=== PATIENT | male | born 1960 | race Caucasian/White ===

== ENCOUNTER 2019-07-28 08:49 | Day surgery (SDC) | payer OTHER, SELFPAY ==
[2019-07-28] MEDS: SODIUM CHLORIDE 0.9% 1,000 ML 200 ML IV (09:20)
[2019-07-28 09:23] VITALS: BP 124/83; PULSE 56; RESP 15; TEMP 36.9; O2SAT 99; BMI 25.1
--- NOTE | 2019-07-28 09:45 | PM.HP.1 ---
History of Present Illness History of Present Illness Date Patient Seen: 07/28/19 Time Patient Seen: 09:45 Chief complaint: [id number] SCREENING COLONOSCOPY Narrative: The patient is a gentleman who is here for screening colonoscopy. He believes he had a polyp removed at his last scope about 5 or 6 years ago. This was done in [place]. He had an uncle who at advanced age of colon cancer. No in his immediate family has colon cancer. Patient History Medical History Enlarged prostate (Acute) Urinary frequency (Acute) Social History household members: spouse Family & Social History Social History: household members spouse Meds Home Medications and Allergies Home Medications Medication Instructions Recorded Confirmed Type Vitamin D3 1 tab PO DAILY 07/28/19 07/28/19 History magnesium 1 tab PO DAILY 07/28/19 07/28/19 History tamsulosin 0.8 mg PO BEDTIME 07/28/19 07/28/19 History Allergies Allergy/AdvReac Type Severity Reaction Status Date / Time No Known Drug Allergies Allergy Verified 07/28/19 08:30 Review of Systems Review of Systems ROS Unobtainable: All systems reviewed & are unremarkable except as noted in HPI and below Genitourinary Comments: Enlarged prostate with urinary symptoms on medication Exam Vital Signs (past 8 hours): - 07/28/19 09:23 Temperature 98.4 F Pulse Rate 56 L Respiratory Rate 15 Blood Pressure 124/83 Pulse Oximetry 99 Oxygen Delivery Method Room Air Narrative Exam Narrative: Pleasant cooperative patient no apparent distress. Lungs are clear to auscultation. No rales or rhonchi. Heart regular rate and rhythm no murmur gallop. Abdomen is soft nontender without mass. No obvious hernias. Patient is alert and oriented x3. Assessment & Plan Assessment & Plan narrative: The patient for a screening colonoscopy. I have discussed the procedure with them. Risks of bleeding, perforation which would necessitate major operation, failure to find remove all lesions, the potential tattoo were all discussed. All questions were answered. They wished to proceed.
--- NOTE | 2019-07-28 09:48 | PM.PREOP ---
Pre-operative Note Interval Note History & Physical reviewed/Exam performed by Physician: Yes Changes to H&P: No ASA Class (for procedural sedation): I
[2019-07-28] MEDS: fentaNYL 250 MCG/5 ML INJ IV (10:14)
[2019-07-28] MEDS: MIDAZOLAM 5 MG/5 ML VIAL IV (10:15)
[2019-07-28 10:18] VITALS: BP 98/67; PULSE 55; RESP 21; TEMP 36.7; O2SAT 94
[2019-07-28 10:23] VITALS: BP 100/69; PULSE 53; RESP 9; O2SAT 94
[2019-07-28 10:28] VITALS: BP 96/70; PULSE 59; RESP 12; TEMP 36.8; O2SAT 94
--- NOTE | 2019-07-28 10:32 | PM.OP.ENDO ---
Operative Date/Time/Diagnoses Date of procedure: 07/28/19 Time of procedure: 10:32 Pre-op diagnosis: Screening exam. Personal history of polyps. Last exam 5 or 6 years ago. Post-op diagnosis: same (Occasional sigmoid diverticulosis. Enlarged prostate.) Procedure & Clinicians Study performed: Colonoscopy Same procedure as scheduled: Yes Indications: Screening Surgeon: Placido Valentine Procedure Notes SCOAP/Timeout: Performed Procedure in detail: The patient was placed in the left lateral decubitus position and underwent IV sedation directed by the surgeon consisting of fentanyl and Versed. Digital exam was remarkable for rarely large prostate. No dominant mass felt.. The scope was inserted and advanced through the rectum into the sigmoid, descending, transverse, and ascending colon. Pressure was applied in order to make our way into the cecum. The cecum was reached identified by the ileocecal valve and the appendiceal opening. The ileocecal valve was briefly cannulated. The terminal ileum was normal in appearance. The scope was gradually brought out. No Polyps were found. The scope ultimately was retroflexed in the rectum. The appearance was normal. The scope was removed and the patient tolerated the procedure well. The prep was good. Scope withdrawal time: 7.5 minutes Sedation minutes: 23 Findings: diverticulosis (Sigmoid) and other findings (Very large prostate) Specimen(s): none sent Complications: none Post-procedure Recommendations: Colonscopy in 5 years Follow up: as needed Disposition: PACU
[2019-07-28 10:33] VITALS: BP 94/73; PULSE 60; RESP 15; TEMP 36.6; O2SAT 95
[2019-07-28 10:50] VITALS: BP 109/73; PULSE 51; RESP 16; TEMP 36.3; O2SAT 97
== END 2019-07-28 10:55 | disposition home or self-care (01) ==
PROVIDERS: Family Provider Family Medicine; PCP Family Medicine; Visit Provider Specialist
PROC: 0DJD8ZZ Inspection of Lower Intestinal Tract, Via Natural or Artificial Opening Endoscopic (ICD-10-PCS; CPT 45378; principal; 2019-07-28 09:45)
DX: Z86.010 Personal history of colon polyps (principal); K57.30 Diverticulosis of large intestine without perforation or abscess without bleeding; N40.0 Benign prostatic hyperplasia without lower urinary tract symptoms
CPT/HCPCS: 45378; 99152; J2250; J3010

== ENCOUNTER → 2020-08-03 10:59 | Outpatient (CLI) | payer OTHER, SELFPAY ==
[2020-08-04 23:28] LABS: COVID19 Sendout Not Detected (Not Detect)
== END ==
PROVIDERS: Family Provider Family Medicine; PCP Family Medicine; Visit Provider Physician Assistant
DX: Z01.812 Encounter for preprocedural laboratory examination (principal)
CPT/HCPCS: 87635

== ENCOUNTER 2020-08-06 10:17 | Day surgery (SDC) | payer OTHER, SELFPAY ==
[2020-08-01 12:14] VITALS: BMI 24.6
[2020-08-06] VITALS (8 sets, daily range): BP systolic 111–137; BP diastolic 63–83; PULSE 43–56; RESP 10–39; TEMP 36.1–36.4; O2SAT 98–100; BMI 24.6
[2020-08-06] MEDS: LACTATED RINGERS 1,000 ML 42 ML IV (10:50)
--- NOTE | 2020-08-06 11:20 | PM.PREOP ---
Pre-operative Note COVID-19 COVID-19 status: Negative Result date/Date tested (Pos, Neg/Pending): 08/03/20 Interval Note History & Physical reviewed/Exam performed by Physician: Yes Changes to H&P: No
[2020-08-06] MEDS: CEFAZOLIN 2 GM/100 ML FROZ.PIGGY IV (11:50)
--- NOTE | 2020-08-06 11:59 | SUR.OPER ---
Supine on padded OR bed, head on pillow, arms secured on padded arm boards at <90 degrees abduction, legs uncrossed, safety belt at thigh, tape over blanket over lower legs.
[2020-08-06] MEDS: BUPIVACAINE 0.5% (PF) VIAL 30 ML INJ (12:07)
--- NOTE | 2020-08-06 13:17 | P.OP_ITS ---
Operative Date/Time/Diagnoses Date of procedure: 08/06/20 Time of procedure: 13:17 Pre-op diagnosis: Right inguinal hernia reducible Post-op diagnosis: same Procedure & Clinicians Procedure: repair right inguinal hernia with Shouldice technique Same procedure as scheduled: Yes Indications: symptomatic right inguinal hernia Click Yes if Unassisted: Yes Anesthesia Type: General Operative Notes Findings: small indirect sac with a weakened floor Closure Type: primary Specimen(s): none sent Prosthetic devices, grafts, tissues, transplants, or devices: none Estimated Blood Loss (mL): 10 Blood products transfused: none Procedure in detail: the patient is placed supine on the operating table and underwent general LMA anesthesia. He was prepped and draped in the usual fashion. A small incision was made overlying the right internal ring and carried down level the external oblique. The external oblique was opened parallel with its fibers through the external ring. Cord structures were elevated. The cremaster was opened proximally and a inguinal hernia sac indirect was found. It was from surrounding structures and dissected the level the deep epigastric vessels. It was opened and found to have no co ntents in suture ligated with a 2 0 silk suture. Distal portion was transected and the stump allowed to retract. The cremaster was closed with an interrupted 3 0 Vicryl. Attention was turned to the floor which is weakened. I opened the floor from near the internal ring to near the pubic tubercle. Preperitoneal fat was dissected off the underside and beginning at the pubic tubercle 20 Prolene suture was sutured at the pubic tubercle. It was then run suturing the cut side of the lateral tissues to the underside transversalis fascia running to create a new internal ring. Using the same suture was run back suturing the edge of inguinal ligament and portion of ileopubic tract to the cut edge of the floor. It was tied at the pubic tubercle. A 2nd 2 layer running layer was created by beginning at the internal ring and suturing oval higher up on the inguinal ligament to the internal oblique running to the pubic tubercle and back. I was careful not to constrict the internal ring tightly in order to avoid swelling of the testicle and cord. The external oblique was closed a running 3 0 Vicryl. The subcu was closed with interrupted 4 0 Vicryl and the skin was closed running 4 0 Vicryl subcuticular stitch and Steri-Strips. Dressing was applied. Local anesthetic was infiltrated at the beginning the end of the procedure. Patient tolerated the procedure well. Complications: none Post-operative Condition: stable Disposition: PACU
[2020-08-06] MEDS: fentaNYL 100 MCG/2 ML INJ IV ×2 (13:20→13:25)
[2020-08-06] MEDS: OXYCODONE/ACETAMINOPHEN 5/325 TABLET 1 TAB PO (13:32)
--- NOTE | 2020-08-06 13:57 | SUR.PHASEI ---
pain stable, awake, talking, resp even and regular.
== END 2020-08-06 14:23 | disposition home or self-care (01) ==
PROVIDERS: Family Provider Family Medicine; PCP Family Medicine; Referring Provider Specialist; Visit Provider Specialist
PROC: (CPT 49505; principal; 2020-08-06 11:15)
DX: K40.90 Unilateral inguinal hernia, without obstruction or gangrene, not specified as recurrent (principal); N40.0 Benign prostatic hyperplasia without lower urinary tract symptoms; R35.0 Frequency of micturition
CPT/HCPCS: 49505; J0690; J1100; J1885; J2250; J2405; J2704; J3010

== ENCOUNTER → 2020-12-06 09:07 | Outpatient (CLI) | payer OTHER, SELFPAY ==
[2020-12-06 11:19] LABS: Prostate Specific Antigen 3.23 ng/mL (0.10-4.00)
== END ==
PROVIDERS: Family Provider Family Medicine; PCP Family Medicine; Referring Provider Specialist; Visit Provider Specialist
DX: R97.20 Elevated prostate specific antigen [PSA] (principal); N39.0 Urinary tract infection, site not specified; N40.1 Benign prostatic hyperplasia with lower urinary tract symptoms; N13.8 Other obstructive and reflux uropathy; Z80.42 Family history of malignant neoplasm of prostate; N52.9 Male erectile dysfunction, unspecified
CPT/HCPCS: 36415; 52000; 81002; 84153

== ENCOUNTER → 2021-01-17 16:17 | Outpatient (CLI) | payer OTHER, SELFPAY ==
[2021-01-17] MEDS: COVID-19 VACC #1, MRNA(MOD) 100 MCG/0.5 ML VIAL IM (16:24)
== END ==
PROVIDERS: Family Provider Family Medicine; PCP Family Medicine; Visit Provider Internal Medicine
DX: Z23 Encounter for immunization (principal)
CPT/HCPCS: 0011A; 91301

== ENCOUNTER → 2021-02-14 15:41 | Outpatient (CLI) | payer OTHER, SELFPAY ==
[2021-02-14] MEDS: COVID-19 VACC #2, MRNA(MOD) 100 MCG/0.5 ML VIAL IM (15:47)
== END ==
PROVIDERS: Family Provider Family Medicine; PCP Family Medicine; Visit Provider Internal Medicine
DX: Z23 Encounter for immunization (principal)
CPT/HCPCS: 0012A; 91301

== ENCOUNTER → 2021-12-28 12:09 | Outpatient (CLI) | payer OTHER, SELFPAY ==
--- NOTE | 2021-12-28 12:11 | DI.MRI.S_ITS ---
PROCEDURE: MR KNEE LT WO CON INDICATIONS: Other instability, left knee TECHNIQUE: Noncontrast sagittal PD fast spin echo and T2 fast spin echo with fat saturation, sagittal 3-D FLASH with fat saturation; coronal T1 spin echo and PD fast spin echo with fat saturation, and axial PD fast spin echo with fat saturation through the knee. COMPARISON: None. FINDINGS: Image quality: Excellent. Menisci: The lateral meniscus is intact. Minimal surfacing signal in the posterior horn, medial meniscus, compatible with small tear. Cruciate ligaments: The posterior cruciate ligament is intact. The ACL demonstrates T2 intrasubstance signal, compatible with partial tear. Medial structures: The medial collateral ligament appears intact. T2 hyperintense signal about the medial retinaculum with partial tear. Visualized portions of the pes anserinus tendons appear normal. No abnormal bursal fluid. Lateral structures: The lateral collateral ligament complex appears intact. The popliteus tendon appears normal. Iliotibial band appears normal. Anterior structures: The quadriceps and patellar tendons appear intact. Patellar alignment is normal. No femoral trochlear dysplasia or ventral trochlear prominence. No edema in the infrapatellar fat pad. Bones and cartilage: Minimal displaced fracture of the lateral tibial plateau with minimal height loss. Fissuring of the patellar apex hyaline cartilage with underlying subchondral edema. The medial and lateral compartment hyaline cartilage is intact. Joint space: Moderate knee joint fluid. No Lerner's cyst. Normal appearing synovial plicae are incidentally noted. IMPRESSION: 1. Minimal displaced fracture of the lateral tibial plateau with minimal height loss. 2. Fissuring of the patellar apex with underlying subchondral edema. 3. Minimal surfacing signal in the posterior horn, medial meniscus, compatible with small tear. 4. Partial tear of the ACL. 5. Partial tear of the medial retinaculum. 6. Moderate joint effusion. Dictated by: Soto Echols M.D. on 12/30/2021 at 8:19 Approved by: Soto Echols M.D. on 12/30/2021 at 8:38
== END ==
PROVIDERS: Family Provider Family Medicine; Referring Provider Family Medicine; Visit Provider Family Medicine
DX: S83.512A Sprain of anterior cruciate ligament of left knee, initial encounter (principal); S83.8X2A Sprain of other specified parts of left knee, initial encounter; M25.362 Other instability, left knee; M25.462 Effusion, left knee
CPT/HCPCS: 73721

== ENCOUNTER → 2023-06-29 19:03 | Outpatient (CLI) | payer MEDICARE, OTHER, SELFPAY ==
--- NOTE | 2023-06-29 19:05 | DI.MRI.S_ITS ---
PROCEDURE: MR KNEE LT WO CON INDICATIONS: Pain in left knee TECHNIQUE: Noncontrast sagittal PD fast spin echo and T2 fast spin echo with fat saturation, sagittal 3-D FLASH with fat saturation; coronal T1 spin echo and PD fast spin echo with fat saturation, and axial PD fast spin echo with fat saturation through the knee. COMPARISON: [facility], MR, MR KNEE LT WO CON, 12/28/2021, 12:44. [facility], CR, XR KNEE ARTHRITIC SERIES LT, 06/23/2023, 15:02. FINDINGS: Image quality: Excellent. Anterior Cruciate Ligament: Anterior cruciate ligament appears mildly attenuated with increased signal intensity, consistent with chronic partial tearing. The bulk of the ligament fibers remain in continuity. Posterior Cruciate Ligament: Intact. Medial Collateral Ligament: Intact. Lateral Collateral Ligament: Intact. Medial Meniscus: Diffuse vertical longitudinal tearing of the medial meniscus with a displaced bucket-handle flap located in the intercondylar notch. The mildly root diminutive residual rim of meniscal tissue demonstrates superimposed horizontal oblique tearing at the posterior horn and body extending to the middle third of the tibial articular surface. Lateral Meniscus: Intact. Medial and Lateral Tendons: The semimembranosus tendon insertions and meniscocapsular junction appear intact. Visualized portions of the pes anserinus tendons appear normal. No abnormal bursal fluid. The long and short heads of the biceps femoris tendon appear intact. The popliteus tendon appears intact. No signs of posterolateral corner injury. Iliotibial band appears normal. Anterior Structures: The quadriceps and patellar tendons appear intact. No patellar subluxation. No femoral trochlear dysplasia or ventral trochlear prominence. No edema in the infrapatellar fat pad. Bones: Healed fracture of the lateral tibial plateau is seen with mild residual deformity at the lateral tibial plateau articular surface and no residual osseous edema. Medial Femorotibial Cartilage: Mild partial-thickness cartilage thinning and surface irregularity. Lateral Femorotibial Cartilage: Deep cartilage fissuring is seen in the weight-bearing portion of the lateral tibial plateau overlying the healed fracture site. Patellofemoral Cartilage: Full-thickness cartilage fissuring at the median ridge of the patella with subchondral cystic changes, not significantly changed when compared to the prior exam. Soft Tissues: A small amount of joint fluid is present. Trace medial popliteal cyst. The musculature surrounding the knee is normal in bulk. Mild edema within the popliteus muscle may indicate a low-grade strain. IMPRESSION: 1. Large bucket-handle tear of the medial meniscus with a displaced flap in the intercondylar notch. There is superimposed horizontal oblique tearing of the residual meniscal rim at the posterior horn and body. 2. Chronic partial tearing of the anterior cruciate ligament appears unchanged. 3. Previously seen fracture of the lateral tibial plateau appears healed without residual edema. There is mild irregularity of the lateral tibial plateau articular surface and overlying cartilage fissuring. 4. Full-thickness cartilage fissuring at the median ridge of the patella with subchondral cystic changes, similar when compared to the prior MRI. 5. Mild edema within the popliteus muscle may be related to low-grade strain. 6. Small joint effusion. Approved by: Ernesto Bee M.D. on 06/30/2023 at 9:36
== END ==
PROVIDERS: Family Provider Family Medicine; Referring Provider Orthopaedic Surgery; Visit Provider Orthopaedic Surgery
DX: S83.212A Bucket-handle tear of medial meniscus, current injury, left knee, initial encounter (principal); S83.512A Sprain of anterior cruciate ligament of left knee, initial encounter; M25.462 Effusion, left knee; M25.562 Pain in left knee; Z87.81 Personal history of (healed) traumatic fracture
CPT/HCPCS: 73721

== ENCOUNTER 2023-08-31 04:51 | Emergency (ER) | payer MEDICARE, OTHER, SELFPAY ==
[2023-08-31 05:01] VITALS: BP 167/77; PULSE 61; RESP 16; TEMP 36.8; O2SAT 97; BMI 25.7
--- NOTE | 2023-08-31 05:08 | DI.RAD.S_ITS ---
PROCEDURE: XR KNEE LT 3V INDICATIONS: knee pain TECHNIQUE: 3 views of the knee were acquired. COMPARISON: MR, KNEE LT WO CON, 12/28/2021, 12:44. [facility], CR, XR KNEE 1 OR 2 VIEWS LEFT, 02/03/2022, 15:02. [facility], CR, XR KNEE 1 OR 2 VIEWS LEFT, 01/06/2022, 13:55. [facility], CR, XR TIBIA FIBULA LEFT, 12/30/2021, 15:21. [facility], CR, XR KNEE 1 OR 2 VIEWS LEFT, 05/21/2022, 14:17. [facility], CR, XR KNEE ARTHRITIC SERIES LT, 06/23/2023, 15:02. [facility], , KNEE LT WO CON, 06/29/2023, 19:42. FINDINGS: Bones: Old lateral tibial plateau fracture. No suspicious bony lesions. Mild osteoarthritic changes. Soft tissues: Moderate joint effusion. No suspicious soft tissue calcifications. IMPRESSION: 1. Old lateral tibial plateau fracture. If there is history of acute trauma, consider CT or MRI. 2. Moderate knee joint effusion. Dictated by: Michelle Vogel M.D. on 08/31/2023 at 9:14 Approved by: Michelle Vogel M.D. on 08/31/2023 at 9:20
--- NOTE | 2023-08-31 06:03 | ED.LOWEXIN ---
HPI - Extremity Injury (Lower) General Chief Complaint: Extremity Injury, Lower Stated Complaint: left knee pain post surgery 08/26 Time Seen by Provider: 08/31/23 04:57 Source: patient Mode of arrival: Ambulatory History of Present Illness HPI Narrative: The patient is a 63-year-old man who arrives by private vehicle accompanied by his . He is reporting left knee pain beginning overnight tonight. Five days ago on the 26 of August he had an arthroscopic surgery on his left knee by Dr. Herman Schroeder at [facility]. Patient said that he was doing quite well from the standpoint of pain following this he was ambulating going up and down stairs but overnight he is developed unremitting pain in his knee. He is not had fevers she is not noted any swelling he is not had shortness of breath or chest pain. He does not have any numbness or weakness in his leg. Dressing was left on after the procedure. Related Data Previous Rx's Medication Instructions Recorded finasteride 5 mg tablet 5 mg PO DAILY #90 tabs 08/06/23 tamsulosin 0.4 mg capsule 0.8 mg (2 x 0.4 mg) PO BEDTIME 08/06/23 #180 caps Allergies Allergy/AdvReac Type Severity Reaction Status Date / Time No Known Drug Allergies Allergy Verified 08/31/23 06:38 Patient History Medical History Skin lesion Colon polyps Left knee pain Elevated PSA Erectile dysfunction Family history of prostate cancer in father Lower urinary tract symptoms (LUTS) BPH w urinary obs/LUTS Hx of fracture of leg Urinary frequency Enlarged prostate Surgical History History of hernia repair (~1999) History of knee surgery (~2013) Family History Father Cancer Mother History of heart disease Grandfather Lung cancer Grandmother History of heart disease Grandmother Stroke Social History marital status: household members: spouse occupational status: employed Smoking Status: Never smoker alcohol intake: current substance use type: does not use caffeine: No Smoking Status: Never smoker alcohol intake frequency: holidays/special occasions only Substance Use Type: does not use Exam Initial Vital Signs Initial Vital Signs: Vital Signs Temperature 98.2 F 08/31/23 05:01 Pulse Rate 61 08/31/23 05:01 Respiratory Rate 16 08/31/23 05:01 Blood Pressure 167/77 H 08/31/23 05:01 Pulse Oximetry 97 08/31/23 05:01 Oxygen Delivery Method Room Air 08/31/23 05:01 Const General: No acute distress Cardio Other: Patient is not tachycardic Skin Rashes: no rashes Other: Laparoscopy ports on the left knee have Steri-Strips in place, there was no discharge no dehiscence Extrem Other: Left knee is swollen with a palpable effusion. The knee is warm. He does not have any calf swelling cords or tenderness. Pedal pulses are intact. Range of motion is diminished secondary to pain Course Orders Ordered: ED Orders 08/31/23 05:08 XR knee LT 3V Stat 08/31/23 06:05 CBC Auto Diff [Complete Blood Count AUTO DIFF] Stat CRP [C-Reactive Protein Quant] Stat ESR [Erythrocyte Sedimentation Rate] Stat Discontinued Medications Hydromorphone HCl (Hydromorphone 0.5 Mg Inj) 0.5 mg IV NOW ONE Stop: 08/31/23 06:35 Last Admin: 08/31/23 06:38 Dose: 0.5 mg Ondansetron HCl (Ondansetron 4 Mg/2 Ml Inj) 4 mg IV NOW ONE Stop: 08/31/23 06:35 Last Admin: 08/31/23 06:38 Dose: 4 mg Reevaluation(s) Reevaluation #1: Patient was re-evaluated after medication with a 0.5 mg of Dilaudid feeling much more comfortable Consultations Consultation #1: Discussed with Dr. Rai, on-call for Orthopedics at [facility]. Based on the information we have available at present it seems unlikely that this is an infection recommends reinforcing use the pain medication and decreased activity, follow up in the office Vital Signs Vital signs: Vital Signs - 8 hr 08/31/23 05:01 08/31/23 06:45 Temperature 98.2 F Pulse Rate 61 51 L Respiratory Rate 16 16 Blood Pressure 167/77 H 144/77 H Pulse Oximetry 97 95 Oxygen Delivery Method Room Air Room Air MDM - Extremity Injury (Lower) Medical Records Medical records narrative: I reviewed the patient's operative note from August 26 at [facility] Lab Data Lab results narrative: Normal white count, sed rate and C-reactive protein. All of this argues against infection 08/31/23 06:05 Labs: Lab Results 08/31/23 Range/Units 06:05 WBC 8.2 (4.5-11.0) X10^3/uL RBC 5.17 (4.5-5.9) X10^6/uL Hgb 16.4 (13.5-17.5) g/dL Hct 46.5 (41-53) % MCV 89.9 (80-100) fL MCH 31.7 (26-34) PG MCHC 35.3 (30-36) % RDW 12.8 (11.6-14.8) % Plt Count 204 (150-400) X10^3/uL Neut % (Auto) 70.1 (50-75) % Lymph % (Auto) 19.5 L (25-40) % [place] % (Auto) 7.8 (3-14) % Eos % (Auto) 1.8 L (2-4) % Baso % (Auto) 0.8 (0-2) % Neut # (Auto) 5800 (0762-2004) /uL Lymph # (Auto) 1600 (7290-7306) /uL [place] # (Auto) 600 (0-900) /uL Eos # (Auto) 200 (0-450) /uL Baso # (Auto) 100 (0-100) /uL ESR 3 (0-15) MM/HR C-Reactive Protein < 0.5 (<1.0) mg/dL Imaging Data Extremity x-ray #1: My Impression: Plain films of the left knee show the presence of an effusion no acute bony abnormality Radiologist's Impression: Radiology impression no bony abnormality, joint effusion minor degenerative changes MDM Narrative Medical decision making narrative: 63-year-old man who recently had left knee arthroscopy. He is here today with increased pain, consider deep vein thrombosis, postoperative infection and postoperative pain. Examination and history do not suggest DVT, his pain seems to be focused on the knee itself which does have an effusion present. The knee does not obviously appear to be cellulitic or infected, his lack of objective evidence of infection argues against a septic joint. After discussion with Orthopedics we are going to recommend symptomatic treatment. Patient did receive IV controlled substances in the emergency department as part of his care today Discharge Plan Departure Patient Disposition: Home Clinical Impression: Acute knee pain Activity Restrictions/Additional Instructions: Emergency department workup tonight is reassuring. I do not think that you are suffering any serious complications from your recent arthroscopy. I recommend that you decrease your activity a little bit unusual crutches and elevate your knee when able. You can use ibuprofen 600 mg 3 times a day for pain, you can also use the previously prescribed hydrocodone/APAP as prescribed. Remember that this will make you drowsy and can cause constipation. You can also use acetaminophen (Tylenol) as needed for pain, recall the each of the hydrocodone APAP has 325 mg of Tylenol in it and your total daily dose of Tylenol from all sources should not exceed 3000 mg. Follow-up soon with your orthopedist, if you are having fevers increasing swelling and pain recheck in the emergency department. Prescriptions: No Action finasteride 5 mg tablet 5 mg PO DAILY Qty: 90 3RF tamsulosin 0.4 mg capsule 0.8 mg PO BEDTIME Qty: 180 3RF Referrals: Brendan Calhoun DO [Primary Care Provider] - Stand Alone Forms: Patient Portal/API
[2023-08-31 06:21] LABS: Add Manual Diff / Slide Review NO; Basophils Absolute Auto 100 /uL (0-100); Basophils Percent Auto 0.8 % (0-2); Eosinophils Absolute Auto 200 /uL (0-450); Eosinophils Percent Auto 1.8 % (2-4); Hematocrit 46.5 % (41-53); Hemoglobin 16.4 g/dL (13.5-17.5); Lymphocytes Absolute Auto 1600 /uL (1100-4500); Lymphocytes Percent Auto 19.5 % (25-40); Mean Corpuscular HGB Conc 35.3 % (30-36); Mean Corpuscular Hemoglobin 31.7 PG (26-34); Mean Corpuscular Volume 89.9 fL (80-100); Monocytes Absolute Auto 600 /uL (0-900); Monocytes Percent Auto 7.8 % (3-14); Neutrophils Absolute Auto 5800 /uL (1500-7000); Neutrophils Percent Auto 70.1 % (50-75); Platelet Count 204 X10^3/uL (150-400); Red Blood Cell Count 5.17 X10^6/uL (4.5-5.9); Red Cell Distribution Width 12.8 % (11.6-14.8); White Blood Cell Count 8.2 X10^3/uL (4.5-11.0)
[2023-08-31 06:32] LABS: C-Reactive Protein Quant < 0.5 mg/dL (<1.0)
[2023-08-31] MEDS: ONDANSETRON 4 MG/2 ML INJ IV (06:38)
[2023-08-31] MEDS: HYDROMORPHONE 0.5 MG INJ IV (06:38)
[2023-08-31 06:45] VITALS: BP 144/77; PULSE 51; RESP 16; O2SAT 95
[2023-08-31 06:49] LABS: Erythrocyte Sedimentation Rate 3 MM/HR (0-15)
[2023-08-31 06:58] VITALS: PULSE 51; O2SAT 96
[2023-08-31 07:00] VITALS: BP 123/69; PULSE 54; RESP 14; O2SAT 95
--- NOTE | 2023-08-31 07:21 | PC.NURSE ---
Assisted patient to re apply compression nash hose and marilu wrap.
[2023-08-31 07:35] VITALS: PULSE 59; RESP 14; O2SAT 95
== END 2023-08-31 07:35 | disposition home or self-care (01) ==
PROVIDERS: Emergency Provider Emergency Medicine; Family Provider Family Medicine; PCP Family Medicine
DX: G89.18 Other acute postprocedural pain (principal)
CPT/HCPCS: 36415; 73562; 85025; 85651; 86140; 96374; 96375; 99284; J1170; J2405

== ENCOUNTER → 2024-01-06 08:15 | Outpatient (CLI) | payer MEDICARE, OTHER, SELFPAY ==
--- NOTE | 2024-01-06 08:17 | DI.MRI.S_ITS ---
PROCEDURE: MR SHOULDER RT WO CON INDICATIONS: BILATERAL SHOULDER PAIN TECHNIQUE: Noncontrast oblique coronal T2 fast spin echo with fat saturation, oblique sagittal T1 spin echo and T2 fast spin echo with fat saturation, axial T1 spin echo and T2 fast spin echo with fat saturation through the shoulder. COMPARISON: None. FINDINGS: Image quality: Excellent. Rotator cuff: Low-grade articular and bursal surface partial thickness tear involving distal supraspinatus extending to musculotendinous junction. Distal infraspinatus tendinosis. Low-grade partial-thickness tear involving superior fibers of distal subscapularis. No full-thickness rotator cuff tendon rupture. Sagittal images demonstrate no significant rotator cuff muscle atrophy. Bones and bursae: No bone marrow contusions or fractures. Moderate acromioclavicular joint osteoarthritic changes are seen with joint space narrowing and downward osteophyte formation depressing the musculotendinous junction of supraspinatus. Moderate glenohumeral joint osteoarthritic changes also noted. There is small amount of joint effusion and subacromial subdeltoid bursal fluid, no gross loose bodies. Capsule and soft tissues: Fraying of superior anterior labrum with T2 hyperintense signal at 12 to 2 o'clock position suggestive of superior anterior labral tear. The long head of the biceps tendon appears thickened with intrasubstance T2 hyperintense signal at the level of greater tuberosity.. The rotator interval appears normal, without fibrosis. The coracohumeral ligament is normal in thickness. IMPRESSION: 1. Low-grade articular and bursal surface partial thickness tear involving distal supraspinatus extending to musculotendinous junction. Distal infraspinatus tendinosis. Low-grade partial-thickness tear involving superior fibers of distal subscapularis. No full-thickness rotator cuff tendon rupture. No muscle atrophy. 2. Moderate acromioclavicular joint osteoarthritis and glenohumeral joint osteoarthritis. No fracture or dislocation. Small amount of joint effusion and subacromial subdeltoid bursal fluid, no gross loose bodies. 3. Suggestion of superior anterior labral tear at 12 to 2 o'clock position. 4. Low-grade partial-thickness tear involving proximal intra-articular portion of long head of biceps. Dictated by: Enoc Diaz M.D. on 01/06/2024 at 10:55 Approved by: Enoc Diaz M.D. on 01/06/2024 at 10:57
--- NOTE | 2024-01-06 08:18 | DI.MRI.S_ITS ---
PROCEDURE: MR SHOULDER LT WO CON INDICATIONS: BILATERAL SHOULDER PAIN TECHNIQUE: Noncontrast oblique coronal T2 fast spin echo with fat saturation, oblique sagittal T1 spin echo and T2 fast spin echo with fat saturation, axial T1 spin echo and T2 fast spin echo with fat saturation through the shoulder. COMPARISON: [facility], MR, MR SHOULDER RT WO CON, 01/06/2024, 8:26. FINDINGS: Image quality: Excellent. Rotator cuff: Low-grade articular and bursal surface partial thickness tear involving distal supraspinatus extending to musculotendinous junction is seen. Distal infraspinatus and subscapularis tendinosis. No full-thickness rotator cuff tendon rupture. Sagittal images demonstrate no significant rotator cuff muscle atrophy. Bones and bursae: No bone marrow contusions or fractures. Moderate acromioclavicular joint osteoarthritis with joint space narrowing, subchondral sclerosis and cyst formation and downward osteophyte formation depressing the musculotendinous junction of supraspinatus. Moderate glenohumeral joint osteoarthritis is also seen. Small amount of joint effusion and subacromial subdeltoid bursal fluid is noted, no gross loose bodies. Capsule and soft tissues: There is fraying of posterior superior labrum at 10 to 12 o'clock position with T2 hyperintense signal suggestive of posterior superior labral tear. The long head of the biceps tendon demonstrates normal location and morphology. The rotator interval appears normal, without fibrosis. The coracohumeral ligament is normal in thickness. IMPRESSION: 1. Low-grade articular and bursal surface partial thickness tear involving distal supraspinatus extending to musculotendinous junction. Distal infraspinatus and subscapularis tendinosis. No full-thickness rotator cuff tendon rupture. No muscle atrophy. 2. Moderate acromioclavicular joint and glenohumeral joint osteoarthritis. No fracture or dislocation. Small amount of joint effusion and subacromial subdeltoid bursal fluid, no gross loose bodies. 3. Suggestion of posterior superior labral tear at 10 to 12 o'clock position. Dictated by: Enoc Diaz M.D. on 01/06/2024 at 10:57 Approved by: Enoc Diaz M.D. on 01/06/2024 at 10:59
== END ==
LOC: MRI 08:16
PROVIDERS: Family Provider Family Medicine; PCP Family Medicine; Referring Provider Orthopaedic Surgery; Visit Provider Orthopaedic Surgery
DX: M75.111 Incomplete rotator cuff tear or rupture of right shoulder, not specified as traumatic (principal); M19.011 Primary osteoarthritis, right shoulder; S46.111A Strain of muscle, fascia and tendon of long head of biceps, right arm, initial encounter; M25.411 Effusion, right shoulder; M75.112 Incomplete rotator cuff tear or rupture of left shoulder, not specified as traumatic; M19.012 Primary osteoarthritis, left shoulder; M25.412 Effusion, left shoulder; M25.511 Pain in right shoulder; M25.512 Pain in left shoulder
CPT/HCPCS: 73221

== ENCOUNTER → 2024-02-01 09:45 | Outpatient (CLI) | payer MEDICARE, OTHER, SELFPAY ==
[2024-02-01 11:31] LABS: Alanine Aminotransferase 16 IU/L (<50); Albumin 4.3 g/dL (3.5-5.0); Albumin Globulin Ratio 1.7 (1.0-2.8); Alkaline Phosphatase 75 U/L (38-126); Aspartate Aminotransferase 25 IU/L (17-59); BUN Creatinine Ratio 17.7 (6-22); Bilirubin Total 1.2 mg/dL (0.2-1.3); Blood Urea Nitrogen 17 mg/dL (9-20); Calcium 9.1 mg/dL (8.4-10.2); Carbon Dioxide 28 mmol/L (22-32); Chloride 109 mmol/L (98-107); Cholesterol 190 mg/dL (140-199); Estimated Glomerular Filt Rate > 60 mL/min (>60); Globulin 2.5 g/dL (1.7-4.1); Glucose 86 mg/dL (80-110); HDL Cholesterol 53 mg/dL (40-60); HEMOLYSIS < 15 (0-50); LDL Cholesterol Calculated 121 mg/dL (<100); Potassium 4.7 mmol/L (3.4-5.1); Sodium 140 mmol/L (137-145); Total Protein 6.8 g/dL (6.3-8.2); Triglycerides 78 mg/dL (35-150)
[2024-02-01 11:57] LABS: Prostate Specific Antigen 1.54 ng/mL (0.10-4.00)
== END ==
LOC: LAB 09:46
PROVIDERS: Family Provider Family Medicine; PCP Family Medicine; Referring Provider Family Medicine; Visit Provider Family Medicine
DX: Z00.00 Encounter for general adult medical examination without abnormal findings (principal); R97.20 Elevated prostate specific antigen [PSA]; Z80.42 Family history of malignant neoplasm of prostate
CPT/HCPCS: 36415; 80053; 80061; 84153; 84443

== ENCOUNTER 2024-05-31 06:22 | Day surgery (SDC) | payer MEDICARE, OTHER, SELFPAY ==
[2024-04-06 15:00] VITALS: BMI 25.7
[2024-05-31] VITALS (15 sets, daily range): BP systolic 101–137; BP diastolic 64–83; PULSE 54–99; RESP 10–54; TEMP 36.1–36.5; O2SAT 96–100; BMI 25.5
--- NOTE | 2024-05-31 | PATH_ITS ---
[facility] Accession Number: [id number] No. of containers..01 Tissue . 01 Material submitted: . prostate - PROSTATE CHIPS . 01 Diagnosis: PROSTATE CHIPS (WEIGHT 10 GRAMS): Prostate tissue with patchy glandular and stromal hyperplasia with focal regions of chronic inflammation. Negative for epithelial atypia or malignancy. [facility] 06/06/2024 1010 Local . 01 Electronically signed: . Isaura Vergara MD, Pathologist NPI- [id number] . 01 Gross description: . Received in formalin with two patient identifiers and prostate chips, are multiple ruiz soft tissue fragments admixed with a moderate amount of hemorrhagic material weighing 10 grams and aggregating to 6.9 x 4.5 x 1.5 cm. No lesions are identified. The specimen is submitted entirely in A1-A6. ([id number]) /MRV 06/01/2024 1832 Local . 01 Pathologist provided ICD-10: N40.1 . 01 CPT . 000226 Specimen Comment: A courtesy copy of this report has been sent to [phone] Performed at: [address] [address], [place], [place] [id number] MD Jorge A Blake MD Phone: [phone]
[2024-05-31] MEDS: LACTATED RINGERS 1,000 ML 21 ML IV (07:33)
--- NOTE | 2024-05-31 07:38 | P.HP_ITS ---
History of Present Illness History of Present Illness Date Patient Seen: 05/31/24 Time Patient Seen: 07:38 Chief complaint: Benign prostatic hyperplasia with LUTS Narrative: This 64-year-old male comes today for Aquablation procedure. Patient has failed maximal medical therapy with tamsulosin and finasteride. Was found to have a prostate that was in the 107 g range with a trilobar obstructive. After and a median lobe. He had a Q max on uroflow of 10.3 with an average flow of 6.3. Has a postvoid residual which is slightly elevated at 43 and his PSA is 1.54. So he has an ideal candidate for Aquablation. The procedure, risks, alternatives were discussed with the patient once again as were the logistics, hope for outcomes, possible sequelae. Patient's questions were answered and he wishes to proceed. Risks to include but not limited to bleeding, infection, injury to surrounding structures, need for future procedures, failure to eliminate his urinary symptoms., need for catheter, possible need for transfusion, unforeseen and unpredictable consequences in sequelae. Patient voices understanding and acceptance of risks and wishes to proceed. Patient denies sign or symptom of urinary tract infection today his urine is biochemically unremarkable though he has not elevated specific gravity of 1.030. So we will move forward with Aquablation. [facility] Medical History (Updated 05/31/24 @ 07:43 by Enrique Bellamy MD) Secondhand smoke exposure Urine stream spraying Slow urinary stream Nocturia more than twice per night Feeling of incomplete bladder emptying Medicare annual wellness visit, initial Skin lesion Colon polyps Left knee pain Elevated PSA Erectile dysfunction Family history of prostate cancer in father Lower urinary tract symptoms (LUTS) BPH w urinary obs/LUTS Hx of fracture of leg Urinary frequency Enlarged prostate Surgical History History of hernia repair (~1999) History of knee surgery (~2013) Family History Father Cancer Mother History of heart disease Grandfather Lung cancer Grandmother History of heart disease Grandmother Stroke Social History marital status: household members: spouse occupational status: employed Smoking Status: Never smoker alcohol intake: current substance use type: does not use caffeine: No Meds Home Medications and Allergies Home Medications Medication Instructions Recorded Confirmed Type finasteride 5 mg tablet 5 mg PO DAILY #90 tabs 08/06/23 05/31/24 Rx tamsulosin 0.4 mg capsule 0.8 mg (2 x 0.4 mg) PO BEDTIME 08/06/23 05/31/24 Rx #180 caps Allergies Allergy/AdvReac Type Severity Reaction Status Date / Time No Known Drug Allergies Allergy Verified 05/31/24 07:10 Review of Systems Review of Systems ROS: Yes All systems reviewed with the patient and are negative except as otherwise documented (And problem list) Exam Vital Signs (past 8 hours): - 05/31/24 07:16 Temperature 97.0 F L Pulse Rate 54 L Respiratory Rate 17 Blood Pressure 137/78 Pulse Oximetry 98 Oxygen Delivery Method Room Air Oxygen Delivery Method Room Air Narrative Exam Narrative: General: This is an awake, alert, oriented male resting on a hospital gurney in no acute distress. Lungs: Clear full and equal Cardiovascular exam: Regular rate and rhythm without murmur Abdominal exam: Soft, nontender, without palpable mass or hepatosplenomegaly Genitourinary exam: Normal male, normal meatus, normal penis, normal testes, normal epididymis and cord structures Rectal exam: Previously done not indicated Neurologic exam: Grossly intact Assessment & Plan Assessment and plan (1) BPH w urinary obs/LUTS: Status: Acute (2) Family history of prostate cancer in father: Status: Acute (3) Elevated PSA: Problem details: Now normal Status: Acute (4) Nocturia more than twice per night: Status: Acute (5) Slow urinary stream: Status: Acute (6) Urine stream spraying: Status: Acute (7) Secondhand smoke exposure: Status: Acute Plan Assessment and plan: Benign prostatic hyperplasia with lower urinary tract symptoms parameters as noted in the history of present illness patient is an ideal candidate for Aquablation arrives NPO and we will move forward with Aquablation. Time-Based Coding :: [TOTAL MINUTES] spent with patient and on the chart (including review of chart, obtaining history, exam, reviewing outside data, placing orders, documenting exam and treatment plan, and counseling patient) on [DATE].
--- NOTE | 2024-05-31 07:44 | PM.PREOP ---
Pre-operative Note COVID-19 COVID-19 status: Not tested Interval Note History & Physical reviewed/Exam performed by Physician: Yes Changes to H&P: No
[2024-05-31] MEDS: CEFAZOLIN 2 GM/100 ML PREMIX 100 ML IV (07:56)
[2024-05-31] MEDS: ACETAMINOPHEN IV 1,000 MG/100 ML VIAL 400 MG IV (08:01)
--- NOTE | 2024-05-31 08:07 | SUR.OPER ---
Lithotomy on padded OR bed, head on pillow, arms secured on padded arm boards at <90 degrees abduction. Legs secured in padded yellow fins stirrups.
--- NOTE | 2024-05-31 09:40 | PM.OP.1 ---
Procedure & Clinicians Procedure: Aquablation 2. Transurethral resection of prostate with fulguration 3. Placement of Mahoney catheter 4. Transrectal ultrasound Same procedure as scheduled: Yes Indications: 64-year-old male with profound bladder outlet obstructions with benign prostatic hyperplasia and lower urinary tract symptoms was found to have 107 g prostate including a large median lobe. He was on maximal medical therapy and still had undesirable and profound symptoms so his failing medical therapy presents this time for Aquablation to relieve his outlet obstruction and improve his symptomology. Surgeon: Enrique Bellamy Click Yes if Unassisted: Yes Anesthesia Type: General Operative Notes Findings: Urethral meatus is normal urethra is normal along its length with normal mucosa of the sphincter as well coapted prostate shows severe obstructive character trilobar in nature with a large median lobe. Within the bladder there were no abnormalities. At the end of the procedure the prostatic fossa was widely patent hemostasis appeared good ureteral orifices were intact and unaffected. A 24 Gibraltarian three-way hematuria catheter was left in place it had a 30 cc balloon which had 45 cc of sterile water in it. There were no other significant abnormalities. Prostate chips which were resected from the bladder neck were removed and forwarded to pathology. At transrectal ultrasound there were a few calcifications in the prostate and at the end of the procedure via the transrectal ultrasound the median lobe was gone Closure Type: not applicable Specimen(s): other (Prostate chips) Prosthetic devices, grafts, tissues, transplants, or devices: [address] [place] catheter with 45 cc in the balloon placed to gravity drainage and a gentle amount of traction. Applied: catheter (Please see above) Estimated Blood Loss (mL): 50 Blood products transfused: none Procedure in detail: Procedure in detail: After informed consent was obtained, the patient was identified brought to the operating room placed in a supine position on the table once there anesthesia was induced and maintained. Ensuring an adequate level of anesthesia the patient was transitioned to the lithotomy position where he was prepped. Time-out was performed and ensuring an adequate level of anesthesia after administration of antibiotics and time-out the truss stepper was mounted to the articulating arm which he had been mounted to the bed. At this point the ultrasound probe was attached to the separate in the ultrasound probe was inserted after instillation of 60 cc of ultrasound gel into the rectum. At this point the ultrasound probe was aligned and confirmation made that the prostate was centered and aligned using both transverse and sagittal views. The bladder neck was identified as well as the median lobe by ultrasound. With the ultrasound in good position the patient went on to be prepped and draped in a sterile fashion again after prepping draping once again ensuring an adequate level of anesthesia the 24 Gibraltarian aqua beam handpiece was inserted through the urethra prostate and into the bladder and cystoscopy was performed. As the hand piece was passed in the level of the verumontanum and sphincter were noted on the ultrasound. With the hand piece in the bladder the handpiece was secured to the handpiece articulating arm which he had been secured to the bed. Again the alignment of the hand piece in the gross probe were done and they were found to be parallel and colinear. Confirmation that the aqua beam nozzle was at the 12 o'clock position then that it was centered. The cystoscope was then backed out our retracted inferior visualizing the verumontanum and external sphincter. The tip of the scope was position proximal to the external sphincter. The alignment was reconfirmed. And compression was applied with the ultrasound probe. Horizontal alignment of the water jet nozzle was then performed. At this point the Aquablation treatment zones were planned utilizing real-time ultrasound to visualize the contours of the prostate the depth and radial angles were set in transverse view. Plan was then made for the median lobe. In the longitudinal or sagittal view the plan was continued registering start of treatment bladder neck mid prostate and tip of scope. The contours were adjusted found to be satisfactory in the physicians were all registered with the software. Again with the confirmation of the treatment contours assured and confirmed the Aquablation treatment was then started and monitored. With this done a 2nd pass was performed making adjustments to the contour prior. Total Aquablation time was approximately 9 minutes. The time from ultrasound in 2 catheter in was 72 minutes. With the Aquablation done the hand piece was looked out after advancing the cystoscope to the tip. The resectoscope was inserted and an Ellik evacuator was used to evacuate clot from the bladder. Then at the bladder neck from approximately the 10 to 2 o'clock position bladder neck was resected including the residual median lobe. Points of bleeding were controlled with the electrocautery. Ellik evacuator was used to evacuate the chips and the ureteral orifices were visualized. They were found to be intact again the bladder was drained filled further points of bleeding anteriorly and at the level of the veru controlled with the electrocautery and hemostasis was deemed to be good. Then with the aid of a cath guide a 24 Gibraltarian hematuria catheter was passed easily into the bladder again the resection and passage of the catheter was under direct vision and aid of the ultrasound. The catheter was put in place and 45 cc instilled within the balloon and was placed to gravity drainage irrigated and continuous bladder irrigation with gentle traction. Again all fragments had been evacuated from the bladder the ultrasound probe was removed. At this point the patient was awakened having tolerated the procedure well to be transferred to the postanesthesia care unit for recovery. A determination will be made if the patient will be observed overnight or discharge directly from the postanesthesia care unit. There were no complications Complications: none Post-operative Condition: stable Disposition: PACU Plan for aftercare: Patient will be observed with continuous bladder irrigation and a determination made with regard to discharge directly home from the PACU or further observation as an outpatient. CBI will be weaned as indicated.
[2024-05-31] MEDS: OXYCODONE IR 5 MG TABLET PO ×2 (09:52→10:13)
[2024-05-31] MEDS: PHENAZOPYRIDINE 100 MG TABLET 200 MG PO ×2 (09:59→17:02)
[2024-05-31] MEDS: OXYBUTYNIN 5 MG TABLET PO ×2 (09:59→19:46)
[2024-05-31] MEDS: HYDROMORPHONE 1 MG INJ IV ×2 (10:30→10:35)
--- NOTE | 2024-05-31 16:57 | PC.NURSE ---
Pt to room 217 via bed from PACU. Pt is awake, alert, and oriented x 3. Denies pain, nausea, or shortness of breath. Mahoney with CBI draining reddish colored urine-no visible clots. Pt oriented to room, call light, bed controls, and tv controls. Pt agrees to not get up without assistance and to call for needs. Bed alarm on for safety.
[2024-05-31] MEDS: TAMSULOSIN 0.4 MG CAPSULE 0.8 MG PO (21:14)
[2024-05-31] MEDS: ACETAMINOPHEN 325 MG TABLET 650 MG PO (22:21)
[2024-06-01] VITALS (17 sets, daily range): BP systolic 69–137; BP diastolic 40–76; PULSE 68–108; RESP 14–22; TEMP 36.4–37; O2SAT 94–100; BMI 25.5
--- NOTE | 2024-06-01 | PATH_ITS ---
[facility] Accession Number: [id number] No. of containers..01 Tissue . 01 Material submitted: . prostate - PROSTATE CHIOPS . 01 Diagnosis: PROSTATE CHIPS, TRANSURETHRAL PROSTATE TISSUE RESECTION: Benign prostatic parenchyma with stromal hypertrophy and mild chronic inflammation. Negative for in situ or invasive carcinoma. [facility] 06/03/2024 1324 Local . 01 Electronically signed: . Anahi Mann MD, Pathologist NPI- [id number] . 01 Gross description: . Received in formalin with two identifiers and prostate chips, are multiple ruiz soft tissue fragments aggregating to 1.6 x 1.5 x 0.6 cm and weighing less than 1 gram. Submitted entirely in cassette A1. ([id number]) /LEROY 06/02/2024 1041 Local . 01 Pathologist provided ICD-10: N40.1, N13.8, Z80.42, R97.20, R35.1 . 01 CPT . 216872 Specimen Comment: A courtesy copy of this report has been sent to [phone] Performed at: [address] [id number] MD Jorge A Blake MD Phone: [phone]
[2024-06-01] MEDS: SODIUM CHLORIDE IRRIG SOLUTION 1,000 ML, TRANEXAMIC ACID 1,000 MG IRR (00:57)
[2024-06-01] MEDS: HYOSCYAMINE 0.125 MG TABLET PO (01:00)
--- NOTE | 2024-06-01 01:49 | PM.PN.1 ---
Subjective Subjective Date Patient Seen: 06/01/24 Time Patient Seen: 01:49 Interval history: This 64-year-old male earlier yesterday had Aquablation. At the end of the procedure his urine was light pink and hemostasis appeared to be good. Was called by nursing staff of acute care stay. When questioned today reported that he was having more hematuria despite continuous bladder irrigation. I immediately came in and found that both his continuous bladder irrigation inflow and catheter had ?clotted off?. The patient had been on gentle traction and it appeared this had been released. These were cleared in the bladder was irrigated of a significant amount of clot and the urine just has not cleared as much as I would like. Patient was given a L of TXA bladder irrigation and again being extremely cautious and planning things in discussing with the patient we will take him to the operating room to make sure all clot was evacuated and see if there is any active site of bleeding. Patient is in agreement the procedure risks and alternatives were discussed with the patient his questions were answered. The patient was monitored during this time his blood pressure remained good his pulse and O2 saturations remain good and with evacuation of the clot the lower abdominal discomfort was relieved. Patient exhibited no sign or symptom of cardiopulmonary distress. So plan will be to take him to the operating room evacuate any clot cauterize any active bleeding sites and improve the patient's situation. Exam Vital Signs (past 8 hours): - 05/31/24 17:50 05/31/24 19:00 Temperature 97.6 F Pulse Rate 72 62 Respiratory Rate 16 20 Blood Pressure 113/83 122/72 Pulse Oximetry 99 98 Oxygen Delivery Method Room Air Oxygen Flow Rate 0 Narrative Exam Narrative: General: This is an awake, alert, conversant male in a moderate amount of distress. Lungs: Clear full and equal Cardiovascular exam: Regular rate and rhythm without murmur Abdominal exam: Initially patient was tender over the bladder area and it was firm in full after irrigation it was softer and significantly less tender. Genitourinary exam: [address] again with improved but not sufficiently improved urine after irrigation. [facility] Medical History (Updated 06/01/24 @ 01:56 by Enrique Bellamy MD) Secondhand smoke exposure Urine stream spraying Slow urinary stream Nocturia more than twice per night Feeling of incomplete bladder emptying Medicare annual wellness visit, initial Skin lesion Colon polyps Left knee pain Elevated PSA Erectile dysfunction Family history of prostate cancer in father Lower urinary tract symptoms (LUTS) BPH w urinary obs/LUTS Hx of fracture of leg Urinary frequency Enlarged prostate Surgical History History of hernia repair (~1999) History of knee surgery (~2013) Family History Father Cancer Mother History of heart disease Grandfather Lung cancer Grandmother History of heart disease Grandmother Stroke Social History marital status: household members: spouse occupational status: employed Smoking Status: Never smoker alcohol intake: current substance use type: does not use caffeine: No Assessment & Plan Assessment and plan (1) Gross hematuria: Status: Acute (2) Lower abdominal pain: Status: Acute Plan Assessment and plan: As noted in the history of present illness the patient has developed bleeding it seems to be somewhat refractory and persistent despite the efforts described in the history of present illness patient will come to the operating room for cystoscopy clot evacuation and fulguration of any active bleeding sites. Time-Based Coding :: [TOTAL MINUTES] spent with patient and on the chart (including review of chart, obtaining history, exam, reviewing outside data, placing orders, documenting exam and treatment plan, and counseling patient) on [DATE]. Quality VTE Deep Vein Thrombosis/Pulmonary Embolism Present on Admission: No
--- NOTE | 2024-06-01 02:07 | SUR.OPER ---
Lithotomy on padded OR bed, head on pillow, arms secured on padded arm boards at <90 degrees abduction. Legs secured in padded yellow fins stirrups.
[2024-06-01] MEDS: LACTATED RINGERS 1,000 ML 42 ML IV ×2 (02:30→04:12)
[2024-06-01] MEDS: CEFAZOLIN 2 GM/100 ML PREMIX 100 ML IV (02:37)
--- NOTE | 2024-06-01 03:40 | PC.NURSE ---
19:20- Patient reported that he was in severe pain, stating that he felt like it was gas causing his pain. Irrigated catheter with sterile water, noting some clotting. Pt felt relief for a short time, requesting a medication for gas. Contacted Dr. Bellamy stating the patient reported feeling pain gas. He said to irrigate the catheter with sterile water using 2-3 60 cc syringe. Patient needing catheter irrigated approximately every 20 minutes, again with relief for a short period of time. Oxybutinin given per MAR. Noted increased hematuria, despite continuous bladder irrigation and contacted Dr. Bellamy, he immediately came in to see patient. HE continued to irrigate the catheter finding multiple clots. 1 L TXA given per order- see MAR. Dr. Bellamy wanted to take patient to the OR to ensure there was no active bleeding. Pt taken to OR at 02:15.
--- NOTE | 2024-06-01 03:52 | P.OP_ITS ---
Procedure & Clinicians Procedure: Cystoscopy with evacuation of clot and fulguration of bleeding site Same procedure as scheduled: Yes Indications: This is a 64-year-old male who yesterday had undergone Aquablation procedure. It end of the procedure his urine was pink. But as things progress over the day he began to have worsening bladder pain and by 11:00 a.m. when I was called he had substantial gross hematuria please see details in history of present illness for his progress note. In any regard he is brought to the operating room for evacuation of clot and to ascertain if there any bleeding sites which there were as detailed below. The procedure risks and alternatives have been discussed with the patient his questions were answered. And he wishes to proceed Surgeon: Enrique Bellamy Click Yes if Unassisted: Yes Anesthesia Type: General Operative Notes Findings: Urethral meatus is consistent with a Mahoney catheter having been in place the urethra show changes consistent with per Transurethral procedure and Mahoney catheter being in place today. The prostate was resected and at the bladder neck in the 6 o'clock position there was an artery small which was active bleeding. This must have been in spasm at the time of the procedure earlier as there was no bleeding at this site at that time. In any regard this was cauterized as well as a small number of other oozing blood vessels at the bladder neck. Small amount of prostate tissue was resected to expose the oozing vessels to facilitate fulguration. Within the bladder there was a large amount of clot which was rather consolidated which was evacuated. The ureteral orifices were in normal position with clear efflux. There were no other abno rmalities in the bladder other than severe trabeculation and cellules. Again it appeared that the site of bleeding was the kamran artery which was cauterized at the end of the procedure the urine was clear to slightly pink all of the small amount of prostate chips have been evacuated from the bladder and a 24 [place] three-way 30 cc hematuria catheter was left in place with 45 cc in the balloon and continuous bladder irrigation. Closure Type: not applicable Specimen(s): other (Small number of prostate chips) Prosthetic devices, grafts, tissues, transplants, or devices: 24 [place] 30 cc three-way hematuria catheter with 45 cc in the balloon. Estimated Blood Loss (mL): 25 Procedure in detail: Procedure in detail: After informed consent was obtained, the patient was identified brought to the operating room where he was placed supine position on the table. Patient then had anesthesia induced and maintained. Ensuring an adequate level of anesthesia patient was transitioned to the lithotomy position where he was prepped, draped, prepared for Transurethral procedure in a sterile fashion. After time-out, administration of antibiotics, ensuring an adequate level of anesthesia a 22 [place] cystoscope was passed through the urethra prostate and into the bladder. The clot was observed and then using a helical evacuator in his 60 cc cath tip syringe clot was evacuated and broken up. With this done there was no active bleeding in the bladder but however the bleeding at the 6 o'clock position was noted and the cystoscope was exchanged for the resectoscope. Again small amount of clot was then further evacuated and the bleeding site was noted to be a small artery that was cauterized. There were some other areas of oozing around the bladder neck small amount of prostate tissue was resected and these bleeding sites were controlled with fulguration in the electrocautery. The entire prostatic fossa was once again inspected no other bleeding was noted. The bladder was filled drained filled drained cystoscopy performed ureteral orifices were in good position and unaffected with clear efflux. At this point the bladder was left full the scope was removed patient had a good stream and the 24 [place] catheter was passed with the aid of a catheter guide without difficulty. The balloon was filled with 45 cc of sterile water placed to gravity drainage and CBI at this point the patient was awakened having tolerated the procedure well and was transferred to the postanesthesia care unit for recovery. Patient will be observed on the floor and likely discharged a little later this morning. Complications: none Post-operative Condition: stable Disposition: PACU Plan for aftercare: Patient to be followed on the floor and acute care and likely discharge the little later this morning.
[2024-06-01] MEDS: PHENAZOPYRIDINE 100 MG TABLET 200 MG PO (04:14)
[2024-06-01] MEDS: OXYCODONE IR 5 MG TABLET PO (04:14)
[2024-06-01] MEDS: OXYBUTYNIN 5 MG TABLET PO (04:15)
[2024-06-01] MEDS: ONDANSETRON 4 MG/2 ML INJ IV (04:17)
--- NOTE | 2024-06-01 08:00 | P.PN_ITS ---
Subjective Subjective Date Patient Seen: 06/01/24 Time Patient Seen: 08:00 Interval history: This 64-year-old male who was taken to the operating room again last night is feeling much better this morning. His urine is clear with minimal if any CBI. By clear that is yellow. He reports that the abdominal discomfort and other difficulties he was having are now gone he passing gas he reports that he is tired but otherwise well. He was once again thankful for the interventions last night and glad that he is better as are we. Patient is in the position with stable vitals and no other clinical indication for continued admission to be discharged to home. Exam Vital Signs (past 8 hours): - 06/01/24 01:00 06/01/24 02:28 06/01/24 03:49 Temperature 98.6 F 98.6 F Pulse Rate 84 87 79 Respiratory Rate 20 16 19 Blood Pressure 112/74 96/68 114/76 Pulse Oximetry 98 98 100 Oxygen Delivery Method Room Air Room Air 06/01/24 03:54 06/01/24 03:59 06/01/24 04:04 Temperature Pulse Rate 82 81 82 Respiratory Rate 14 20 22 Blood Pressure 107/65 110/69 115/58 L Pulse Oximetry 100 100 100 Oxygen Delivery Method Room Air Room Air Room Air 06/01/24 04:20 Temperature Pulse Rate 73 Respiratory Rate 16 Blood Pressure 109/61 Pulse Oximetry 98 Oxygen Delivery Method Room Air Oxygen Delivery Method Room Air Oxygen Flow Rate 0 Narrative Exam Narrative: General: This is an awake, alert, oriented male who appears in no acute distress Lungs: Clear full and equal Cardiovascular exam: Regular rate and rhythm without murmur Abdominal exam: Soft, nontender, without palpable mass or hepatosplenomegaly Genitourinary exam: Normal circumcised male with hematuria catheter in place and clear yellow urine [facility] Medical History (Updated 06/01/24 @ 01:56 by Enrique Bellamy MD) Secondhand smoke exposure Urine stream spraying Slow urinary stream Nocturia more than twice per night Feeling of incomplete bladder emptying Medicare annual wellness visit, initial Skin lesion Colon polyps Left knee pain Elevated PSA Erectile dysfunction Family history of prostate cancer in father Lower urinary tract symptoms (LUTS) BPH w urinary obs/LUTS Hx of fracture of leg Urinary frequency Enlarged prostate Surgical History History of hernia repair (~1999) History of knee surgery (~2013) Family History Father Cancer Mother History of heart disease Grandfather Lung cancer Grandmother History of heart disease Grandmother Stroke Social History marital status: household members: spouse occupational status: employed Smoking Status: Never smoker alcohol intake: current substance use type: does not use caffeine: No Assessment & Plan Assessment and plan (1) BPH w urinary obs/LUTS: Status: Acute (2) Gross hematuria: Status: Acute Plan Assessment and plan: Patient now after Aquablation with clear yellow urine his ready for discharge. Discharge instructions given to the patient verbally and also written down. Patient will follow-up in my office tomorrow morning likely for catheter removal and we will look forward to a good result from the Aquablation. 2. Gross hematuria now cleared. Time-Based Coding :: [TOTAL MINUTES] spent with patient and on the chart (including review of chart, obtaining history, exam, reviewing outside data, placing orders, documenting exam and treatment plan, and counseling patient) on [DATE]. Quality VTE Deep Vein Thrombosis/Pulmonary Embolism Present on Admission: No
[2024-06-01] MEDS: FINASTERIDE 5 MG TABLET PO (08:18)
--- NOTE | 2024-06-01 11:52 | PC.NURSE ---
Attempted to ambulate Pt in room x 2 with rests in between and each time the Pt was unable to maintain an upright position and became pale and dizzy and sat back down. Pt was orthostatic. Rechecked again at 1157- laying 98%RA, HR 74, BP103/60, 1159-sitting- 74/42, 94% 96 HR and was symptomatic with dizziness, 1202 standing- 69/40, HR 108, 99% RA, 1205 laying-100% RA, HR 68 117/65. Will notify MD and await orders.
[2024-06-01] MEDS: SODIUM CHLORIDE 0.9% 1,000 ML 1000 ML IV ×2 (12:43→15:56)
[2024-06-01 12:50] LABS: Hematocrit 30.6 % (41-53); Hemoglobin 10.8 g/dL (13.5-17.5)
--- NOTE | 2024-06-01 12:54 | CM.DANOTE ---
Discharge Planning/Care Management CM Discharge Assessment Start: 06/01/24 12:45 Freq: Status: Active Protocol: Document 06/01/24 12:45 CARLOS (Rec: 06/01/24 12:54 CARLOS [id number]) Discharge Planning Assessment Assigned Well [employer] DEVON Ramirez DPOA/Assigned Designee Name Betty Basurto, spouse Contact Information [phone] Advance Directives? Yes Advance Directives on File No History Provided By Patient,Medical Record Prior Living Arrangements House Household Members spouse Type of transporation used prior to Drives own vehicle admit Independent with ADL's Yes Is patient alert and oriented? Yes Patient/Family Preference OP PT Therapy Barriers to Discharge No Comment Patient is s/p Aquablation, urology procedure 05/31, returned to the OR d/t bleeding, now orthostatic when trying to get up. Met w/patient to introduce self and role, patient reports he is confident in his to assist as needed once home. Patient is active and indp at his baseline. No needs from CM team identified at this time. Will plan to follow in case any arise. Discharge Plan Home Transportation Arrangement Family Referrals Initiated None needed
[2024-06-01 13:03] LABS: BUN Creatinine Ratio 11.7 (6-22); Blood Urea Nitrogen 13 mg/dL (9-20); Carbon Dioxide 25 mmol/L (22-32); Chloride 101 mmol/L (98-107); Estimated Glomerular Filt Rate > 60 mL/min (>60); Glucose 113 mg/dL (80-110); HEMOLYSIS < 15 (0-50); Potassium 4.3 mmol/L (3.4-5.1); Sodium 130 mmol/L (137-145)
--- NOTE | 2024-06-01 17:51 | PC.NURSE ---
Pt is ready for discharge home. IV has been removed. He will be going home with his kidd catheter and following up with Dr. Bellamy tomorrow morning for ikdd removal. Kidd teaching has been performed. Went over d/c instructions with Pt-discussed d/c meds, time of last dose, reviewed stroke education, reminded Pt to monitor output and to drink plenty of fluids per Dr. Bellamy instructions. Pt denied further questions and will be taken out via w/c by [employer] to POV with Spouse and all belongings.
== END 2024-06-01 18:01 | disposition home or self-care (01) ==
LOC: OR 07:40 → AC 14:16
PROVIDERS: Urology; Family Provider Family Medicine; PCP Family Medicine; Referring Provider Urology; Visit Provider Urology
PROC: 0VT08ZZ Resection of Prostate, Via Natural or Artificial Opening Endoscopic (ICD-10-PCS; CPT 0421T; principal; 2024-05-31 07:45)
PROC: 0TJB8ZZ Inspection of Bladder, Via Natural or Artificial Opening Endoscopic (ICD-10-PCS; CPT 52000; principal; 2024-06-01 03:00)
DX: N40.1 Benign prostatic hyperplasia with lower urinary tract symptoms (principal); N13.8 Other obstructive and reflux uropathy; R35.1 Nocturia; R39.198 Other difficulties with micturition; N32.89 Other specified disorders of bladder; R31.0 Gross hematuria
CPT/HCPCS: 0421T; 52001; 36415; 80048; 85014; 85018; C2596; J0136; J0330; J0690; J1170; J2250; J2405; J2704; J3010; J3490

== ENCOUNTER → 2024-06-02 14:56 | Outpatient (CLI) | payer MEDICARE, OTHER, SELFPAY ==
[2024-05-31 14:18] VITALS: BMI 25.5
== END ==
PROVIDERS: Family Provider Family Medicine; PCP Family Medicine; Visit Provider Urology
DX: R39.9 Unspecified symptoms and signs involving the genitourinary system (principal)
CPT/HCPCS: 87086

== ENCOUNTER → 2024-06-03 08:22 | Outpatient (CLI) | payer MEDICARE, OTHER, SELFPAY ==
[2024-05-31 14:18] VITALS: BMI 25.5
== END ==
PROVIDERS: Family Provider Family Medicine; PCP Family Medicine; Referring Provider Urology; Visit Provider Urology
DX: R31.0 Gross hematuria (principal); R39.9 Unspecified symptoms and signs involving the genitourinary system; N40.1 Benign prostatic hyperplasia with lower urinary tract symptoms; N13.8 Other obstructive and reflux uropathy
CPT/HCPCS: 87086

== ENCOUNTER → 2024-06-13 13:09 | Outpatient (CLI) | payer MEDICARE, OTHER, SELFPAY ==
[2024-05-31 14:18] VITALS: BMI 25.5
== END ==
PROVIDERS: Family Provider Family Medicine; PCP Family Medicine; Visit Provider Urology
DX: R39.9 Unspecified symptoms and signs involving the genitourinary system (principal); N40.1 Benign prostatic hyperplasia with lower urinary tract symptoms; N13.8 Other obstructive and reflux uropathy
CPT/HCPCS: 87086

== ENCOUNTER → 2024-06-30 09:28 | Outpatient (CLI) | payer MEDICARE, OTHER, SELFPAY ==
[2024-05-31 14:18] VITALS: BMI 25.5
== END ==
PROVIDERS: Family Provider Family Medicine; PCP Family Medicine; Visit Provider Urology
DX: R39.9 Unspecified symptoms and signs involving the genitourinary system (principal)
CPT/HCPCS: 87086

== ENCOUNTER → 2024-07-29 09:48 | Outpatient (CLI) | payer MEDICARE, OTHER, SELFPAY ==
[2024-05-31 14:18] VITALS: BMI 25.5
== END ==
PROVIDERS: Family Provider Family Medicine; PCP Family Medicine; Visit Provider Urology
DX: N40.1 Benign prostatic hyperplasia with lower urinary tract symptoms (principal); N13.8 Other obstructive and reflux uropathy; R39.198 Other difficulties with micturition; R39.14 Feeling of incomplete bladder emptying; R35.1 Nocturia; R39.9 Unspecified symptoms and signs involving the genitourinary system
CPT/HCPCS: 51798; 81002; 87086

== ENCOUNTER → 2024-11-07 09:26 | Outpatient (CLI) | payer MEDICARE, OTHER, SELFPAY ==
[2024-05-31 14:18] VITALS: BMI 25.5
[2024-11-07 10:22] LABS: Influenza A - CEPHEID Flu A NEGATIVE (NEGATIVE); Influenza B - CEPHEID Flu B NEGATIVE (NEGATIVE); Respiratory Syncytial Virus Negative (Negative)
[2024-11-07 10:23] LABS: COVID-19 CEPHEID 4-PLEX PCR Negative (Negative)
== END ==
PROVIDERS: Family Provider Family Medicine; PCP Family Medicine; Visit Provider Physician Assistant Medical
DX: R05.9 Cough, unspecified (principal); J02.9 Acute pharyngitis, unspecified
CPT/HCPCS: 0241U; 87070

== ENCOUNTER → 2024-12-05 10:39 | Outpatient (CLI) | payer MEDICARE, OTHER, SELFPAY ==
[2024-05-31 14:18] VITALS: BMI 25.5
--- NOTE | 2024-12-05 10:41 | DI.RAD.S_ITS ---
PROCEDURE: XR CERVICAL SPINE 2V OR 3V INDICATIONS: Chronic neck pain TECHNIQUE: 3 view(s) of the cervical spine were acquired. COMPARISON: None. FINDINGS: Bones: No fractures or dislocations to the C7 level. The lateral masses of C1 appear intact on the odontoid view. No suspicious bony lesions. Soft tissues: No prevertebral soft tissue swelling. IMPRESSION: No displaced fracture or traumatic subluxation. Dictated by: Frank Hung M.D. on 12/05/2024 at 13:27 Approved by: Frank Hung M.D. on 12/05/2024 at 13:28
== END ==
PROVIDERS: Family Provider Family Medicine; PCP Family Medicine; Referring Provider Family Medicine; Visit Provider Family Medicine
DX: S16.1XXA Strain of muscle, fascia and tendon at neck level, initial encounter (principal); X58.XXXA Exposure to other specified factors, initial encounter
CPT/HCPCS: 72040

== ENCOUNTER 2025-07-12 06:47 | Emergency (ER) | payer MEDICARE, OTHER, SELFPAY ==
[2024-05-31 14:18] VITALS: BMI 25.5
[2025-07-12 06:50] VITALS: BP 141/85; PULSE 85; RESP 18; TEMP 36.8; O2SAT 99; BMI 25.7
--- NOTE | 2025-07-12 07:17 | ED_ITS ---
HPI - Back Pain/Injury General Chief Complaint: Back Pain/Injury Stated Complaint: Lower back pain going down left leg Time Seen by Provider: 07/12/25 07:04 Source: patient History of Present Illness HPI Narrative: Patient here with . Complains of left lower back pain radiating to his anterior thigh and stops at the knee. No saddle paresthesia no numbness tingling to the feet or legs. No abdominal pain. No prior history of aortic aneurysm dissection. No urinary complaints. No known injury. Started 1 week ago and slowly got worse. Increased pain with movement side bends leaning forward back changing position. No prior history of MRI or surgery to the back. No recent illness fever chills. No history of diabetes. Patient is retired from the [employer]. Related Data Previous Rx's ?Medication ?Instructions ?Recorded hydrocodone 5 mg-acetaminophen 325 1 tab PO Q6H PRN pa in #20 tabs 07/12/25 mg tablet methylprednisolone 4 mg tablets in See Rx Instructions PO .COMPLEX 07/12/25 a dose pack (Medrol (Gama)) #21 ea ondansetron 4 mg disintegrating 4 mg PO Q6H PRN nausea and 07/12/25 tablet vomiting #20 tabs Allergies Allergy/AdvReac Type Severity Reaction Status Date / Time No Known Drug Allergies Allergy Verified 07/12/25 06:49 Review of Systems Review of Systems Narrative: GENERAL: Negative chills, fatigue, malaise, fever, sweats. HEENT: Negative sinus pain, ear pain, sore throat RESPIRATORY: Negative dyspnea, cough CARDIOVASCULAR: Negative chest pain, palpitations GASTROINTESTINAL: Negative vomiting, nausea, abdominal pain : Negative dysuria, frequency, hematuria MUSCULOSKELETAL: Positive back, muscle or bony pain SKIN: Negative rash, skin lesions NEUROLOGIC: Negative weakness, numbness ROS Unobtainable: All systems reviewed & are unremarkable except as noted in HPI and below Patient History Medical History (Updated 07/12/25 @ 08:18 by Enrique Gonzalez MD) Cervical strain Overactive bladder Secondhand smoke exposure Urine stream spraying Slow urinary stream Nocturia more than twice per night Feeling of incomplete bladder emptying Medicare annual wellness visit, initial Skin lesion Colon polyps Left knee pain Elevated PSA Erectile dysfunction Family history of prostate cancer in father Lower urinary tract symptoms (LUTS) BPH w urinary obs/LUTS Hx of fracture of leg Urinary frequency Enlarged prostate Surgical History History of hernia repair (~1999) History of knee surgery (~2013) Family History Father Cancer Mother History of heart disease Grandfather Lung cancer Grandmother History of heart disease Grandmother Stroke Social History marital status: household members: spouse occupational status: employed alcohol intake: current substance use type: does not use caffeine: No Smoking Status: Never smoker alcohol intake frequency: holidays/special occasions only Exam Narrative Exam Narrative: GENERAL: in no distress, not toxic not dyspneic HEAD: Normocephalic. EYES: Pupils equal round ENT: Mucous membranes moist. NECK: Trachea midline. CARDIOVASCULAR: Regular rate and rhythm RESPIRATORY: Clear to auscultation. Breath sounds equal bilaterally. No wheezes, rales, or rhonchi. GASTROINTESTINAL: Abdomen soft, non-tender EXTREMITIES: No gross deformities. BACK: No flank tenderness. Shoes and socks removed. There is increased pain with side bending left and right and leaning forward back. Able to stand but has slight antalgic gait due to pain in the left lower back. Increased pain with straight leg raise at 60?. NEURO: AOx4. Clear speech, slow steady gait no foot drop. Strong bilateral patellar reflexes and ankle flexion-extension with light touch intact to left foot and toes wiggles toes. Foot is warm soft pink strong pedal pulse brisk cap refills. SKIN: Warm and dry PSYCH: Not anxious, is cooperative Initial Vital Signs Initial Vital Signs: Vital Signs Temperature 98.3 F 07/12/25 06:50 Pulse Rate 85 07/12/25 06:50 Respiratory Rate 18 07/12/25 06:50 Blood Pressure 141/85 H 07/12/25 06:50 Pulse Oximetry 99 07/12/25 06:50 Oxygen Delivery Method Room Air 07/12/25 06:50 Course Orders Ordered: ED Orders 07/12/25 07:16 CT lumbar spine wo con Stat Discontinued Medications Ketorolac Tromethamine (Ketorolac 30 Mg/Ml Vial) 15 mg IV NOW ONE Stop: 07/12/25 07:16 Last Admin: 07/12/25 07:35 Dose: 15 mg Documented By: MIKAL Methylprednisolone (Methylprednisolone Succ 125 Mg/2 Ml Vial) 125 mg IV NOW ONE Stop: 07/12/25 07:17 Last Admin: 07/12/25 07:34 Dose: 125 mg Documented By: MIKAL Morphine Sulfate (Morphine 4 Mg/Ml Inj) 4 mg IV NOW ONE Stop: 07/12/25 07:16 Last Admin: 07/12/25 07:34 Dose: 4 mg Documented By: MIKAL Ondansetron HCl (Ondansetron 4 Mg/2 Ml Inj) 4 mg IV NOW ONE Stop: 07/12/25 07:16 Last Admin: 07/12/25 07:34 Dose: 4 mg Documented By: MIKAL Vital Signs Vital signs: Vital Signs - 8 hr 07/12/25 06:50 07/12/25 07:55 07/12/25 07:56 Temperature 98.3 F Pulse Rate 85 46 L 45 L Respiratory Rate 18 Blood Pressure 141/85 H Pulse Oximetry 99 100 100 Oxygen Delivery Method Room Air 07/12/25 07:56 07/12/25 08:00 07/12/25 08:00 Temperature Pulse Rate 44 L Respiratory Rate Blood Pressure 165/87 H 156/83 H Pulse Oximetry 98 Oxygen Delivery Method Room Air 07/12/25 08:30 07/12/25 08:30 Temperature Pulse Rate 48 L Respiratory Rate Blood Pressure 143/78 H Pulse Oximetry 97 Oxygen Delivery Method MDM - Back Pain/Injury Lab Data Labs: Urine Dip Bedside Urine Glucose Negative Bedside Urine Bilirubin - Negative Bedside Urine Ketone - Negative Urine Specific [place] 1.030 Bedside Urine Occult Blood - Negative Bedside Urine pH 6.0 Bedside Urine Protein - Negative Bedside Urine Urobilinogen - Negative Bedside Urine Nitrite - Negative Bedside Urine Leukocytes - Negative Esterase Imaging Data CT lumbar spine: Radiologist's Impression: [address] [address] [address] Scan Report Signed Patient: Bolivar Basurto MR#: [id number] : 1960 Acct:[id number] Age/Sex: 65 / M Date of Service: 07/12/25 Loc: ED Accession Number: [id number] Procedure: CT lumbar spine wo con Ordering Provider: Enrique Gonzalez MD PROCEDURE: CT LUMBAR SPINE WO CON INDICATIONS: Pain/injury TECHNIQUE: Noncontrast 3 mm thick sections acquired from the T12 level to the sacrum. Sagittal and coronal reformats were constructed. For radiation dose reduction, the following was used: automated exposure control. COMPARISON: None. FINDINGS: Image quality: Excellent. Bones: There is normal bony alignment. T12 has vestigial ribs. L5 is a transitional lumbosacral vertebral body. No acute vertebral body compression fractures. No suspicious lytic or blastic bony lesions. No pars defects. T12-L1: No canal stenosis or foraminal stenosis. L1-L2: No canal stenosis or foraminal stenosis. L2-L3: Disc bulge. Facet and ligament hypertrophy. Borderline canal stenosis. There is a focal small left foraminal disc protrusion which impinges on the left L2 nerve root somewhat in the left foramen. Reference axial image 43 of series 3. No central canal stenosis. L3-L4: Short pedicles. Disc bulge. Facet and ligament hypertrophy. [id number]-ef-ypbrcjal canal stenosis. No significant foraminal stenosis. L4-L5: Short pedicles. Disc bulge with mild right paracentral disc protrusion. Facet hypertrophy. Moderate bilateral foraminal narrowing. Moderate central canal stenosis. There may be a degree of impingement on the right L5 nerve root in the right lateral recess. L5-S1: L5 is a transitional lumbosacral vertebra. Mild canal stenosis. Soft tissues: No retroperitoneal masses or hematomas. Visualized aorta is normal in caliber. IMPRESSION: 1. No ring system describes that there are vestigial T12 ribs and that L5 is a transitional lumbosacral vertebral body. If surgery is planned on this patient, careful correlation for correct surgical level is required. 2. Underlying congenitally short pedicles and facet arthropathy. 3. At L4-L5, there is moderate central canal stenosis. There is a right paracentral disc protrusion which may impinge on the right L5 nerve root somewhat in the right lateral recess. 4. At L2-L3, there is a small left foraminal disc protrusion which impinges on the left L2 nerve root in the left foramen. 5. Canal stenosis is borderline at L2-L3, mild to moderate at L3-L4, moderate at L4-L5, and mild at L5-S1. Dictated by: Bao Cummins M.D. on 07/12/2025 at 7:57 Approved by: Bao Cummins M.D. on 07/12/2025 at 8:04 [facility] Narrative Medical decision making narrative: Patient here with . Complains of left lower back pain radiating to his anterior thigh and stops at the knee. No saddle paresthesia no numbness tingling to the feet or legs. No abdominal pain. No prior history of aortic aneurysm dissection. No urinary complaints. No known injury. Started 1 week ago and slowly got worse. Increased pain with movement side bends leaning forward back changing position. No prior history of MRI or surgery to the back. No recent illness fever chills. No history of diabetes. Patient is retired from the [employer]. MDM After history and exam, no blood work or urinalysis indicated. Patient has reproducible point tenderness and pain and pain with movement Differential considered: Includes but not limited to aortic aneurysm dissection degenerative disc disease sciatica Medical records reviewed: No recent visit for this complaint Imaging studies independently reviewed: CT lumbar spine multilevel degenerative disc disease and spinal canal stenosis Re-evaluations: 8:14 a.m.. Patient feeling much better, pain is much better controlled. Reviewed with him results and needs to follow up with primary care for outpatient MRI physical therapy and referral to ortho spine. Return precautions reviewed. No neuro deficits. He desires discharge home. Discussion: Appropriate for discharge home. Exam is reassuring. No neuro deficits. No MRI at this time. This can be done outpatient with primary care referral for MRI physical therapy and ortho spine referral. Pain is controlled. He desires discharge home. Diagnosis: Sciatica/degenerative disc disease Discharge Plan Departure Patient Disposition: Home Clinical Impression: Sciatica Qualifiers: Laterality: left Qualified Code(s): M54.32 - Sciatica, left side Degenerative disc disease Qualifiers: Spinal region: lumbar Disc-related pain type: discogenic back pain and lower extremity pain Qualified Code(s): M51.362 - Other intervertebral disc degeneration, lumbar region with discogenic back pain and lower extremity pain Instructions: DI for Sciatica, DI for Degenerative Disc Disease Activity Restrictions/Additional Instructions: No driving operating machinery today when taking prescribed pain medication. Please see family doctor for outpatient referral for MRI of your lower back as well as physical therapy and referral to spine surgery services. Return if worse if any questions concerns. Please do review the discharge instructions and information. Continue steroid back tomorrow. Prescriptions have been prov ided for you. Prescriptions: New hydrocodone-acetaminophen 5-325 mg tablet 1 tab PO Q6H PRN (Reason: pain) Qty: 20 0RF methylprednisolone [Medrol (Gama)] 4 mg tablets,dose pack See Rx Instructions .ROUTE .COMPLEX Qty: 21 0RF Rx Instructions: orally per package directions ondansetron 4 mg tablet,disintegrating 4 mg PO Q6H PRN (Reason: nausea and vomiting) Qty: 20 0RF Referrals: Brendan Calhoun DO [Primary Care Provider, Family Practice] Stand Alone Forms: Patient Portal/API
[2025-07-12] MEDS: MORPHINE 4 MG/ML INJ IV (07:34)
[2025-07-12] MEDS: methylPREDNISolone succ 125 MG/2 ML VIAL IV (07:34)
[2025-07-12] MEDS: ONDANSETRON 4 MG/2 ML INJ IV (07:34)
[2025-07-12] MEDS: KETOROLAC 30 MG/ML VIAL 15 MG IV (07:35)
[2025-07-12 07:55] VITALS: PULSE 46; O2SAT 100
[2025-07-12 07:56] VITALS: BP 165/87; PULSE 45; O2SAT 100
[2025-07-12 08:00] VITALS: BP 156/83; PULSE 44; O2SAT 98
[2025-07-12 08:30] VITALS: BP 143/78; PULSE 48; O2SAT 97
== END 2025-07-12 08:43 | disposition home or self-care (01) ==
PROVIDERS: Emergency Provider Emergency Medicine; Family Provider Family Medicine; PCP Family Medicine
DX: M54.32 Sciatica, left side (principal); M51.362 Other intervertebral disc degeneration, lumbar region with discogenic back pain and lower extremity pain
CPT/HCPCS: 36415; 72131; 81003; 96374; 96375; 99284; J1885; J2270; J2405; J2919

== ENCOUNTER 2025-07-13 10:26 | Inpatient (IN) | payer MEDICARE, OTHER, SELFPAY ==
[2024-05-31 14:18] VITALS: BMI 25.5
[2025-07-13 10:30] VITALS: BP 159/81; PULSE 61; RESP 15; TEMP 36.9; O2SAT 97; BMI 25.0
--- NOTE | 2025-07-13 10:34 | ED.BACK ---
HPI - Back Pain/Injury General Chief Complaint: Back Pain/Injury Stated Complaint: Back/Leg pain Time Seen by Provider: 07/13/25 10:32 History of Present Illness HPI Narrative: Patient brought in by EMS from home for back pain. I saw patient yesterday for back pain. He was doing very well at time of discharge walking out of the ER yesterday after CT imaging of the lumbar spine and pain control. However last night he twisted his back wrong and unable to get up and walk since then. No bowel or bladder incontinence or retention. No saddle paresthesia. He did take his pain medications this morning at 9:00 a.m.. Related Data Previous Rx's ?Medication ?Instructions ?Recorded hydrocodone 5 mg-acetaminophen 325 1 tab PO Q6H PRN pain #20 tabs 07/12/25 mg tablet methylprednisolone 4 mg tablets in See Rx Instructions PO .COMPLEX 07/12/25 a dose pack (Medrol (Gama)) #21 ea ondansetron 4 mg disintegrating 4 mg PO Q6H PRN nausea and 07/12/25 tablet vomiting #20 tabs Allergies Allergy/AdvReac Type Severity Reaction Status Date / Time No Known Drug Allergies Allergy Verified 07/13/25 10:33 Review of Systems Review of Systems Narrative: GENERAL: Negative chills, fatigue, malaise, fever, sweats. HEENT: Negative sinus pain, ear pain, sore throat RESPIRATORY: Negative dyspnea, cough CARDIOVASCULAR: Negative chest pain, palpitations GASTROINTESTINAL: Negative vomiting, nausea, abdominal pain : Negative dysuria, frequency, hematuria MUSCULOSKELETAL: Positive back, muscle or bony pain SKIN: Negative rash, skin lesions NEUROLOGIC: Negative weakness, numbness ROS Unobtainable: All systems reviewed & are unremarkable except as noted in HPI and below Patient History Medical History (Updated 07/13/25 @ 18:21 by Enrique Gonzalez MD) Cervical strain Overactive bladder Secondhand smoke exposure Urine stream spraying Slow urinary stream Nocturia more than twice per night Feeling of incomplete bladder emptying Medicare annual wellness visit, initial Skin lesion Colon polyps Left knee pain Elevated PSA Erectile dysfunction Family history of prostate cancer in father Lower urinary tract symptoms (LUTS) BPH w urinary obs/LUTS Hx of fracture of leg Urinary frequency Enlarged prostate Surgical History History of hernia repair (~1999) History of knee surgery (~2013) Family History Father Cancer Mother History of heart disease Grandfather Lung cancer Grandmother History of heart disease Grandmother Stroke Social History marital status: household members: spouse and family occupational status: employed Smoking Status: Never smoker alcohol intake: current substance use type: does not use caffeine: No alcohol intake frequency: holidays/special occasions only Exam Narrative Exam Narrative: GENERAL: in no distress, not toxic not dyspneic HEAD: Normocephalic. EYES: Pupils equal round ENT: Mucous membranes moist. NECK: Trachea midline. CARDIOVASCULAR: Regular rate and rhythm RESPIRATORY: Clear to auscultation. Breath sounds equal bilaterally. No wheezes, rales, or rhonchi. BACK: Reproduces spasm left lower back. Very limited range of motion at the back due to pain. Increased pain left straight leg raise at 60?. Light touch intact to leg. Able to flex and extend at hip knee and ankle. Strong bilateral ankle flexion. Strong bilateral patellar reflexes NEURO: AOx4. Clear speech SKIN: Warm and dry PSYCH: Not anxious, is cooperative Initial Vital Signs Initial Vital Signs: Vital Signs Temperature 98.4 F 07/13/25 10:30 Pulse Rate 61 07/13/25 10:30 Respiratory Rate 15 07/13/25 10:30 Blood Pressure 159/81 H 07/13/25 10:30 Pulse Oximetry 97 07/13/25 10:30 Oxygen Delivery Method Room Air 07/13/25 10:30 Course Orders Ordered: Hydrocodone Bitart/Acetaminophen (Hydrocodone/Acet 5/325 Tablet) 2 tab PO Q4H PRN PRN Reason: Pain, Severe (7-10) Last Admin: 07/14/25 10:04 Dose: 2 tab Documented By: Admin: 07/14/25 03:25 Dose: 2 tab Documented By: Admin: 07/13/25 22:56 Dose: 2 tab Documented By: MARGO Enoxaparin Sodium (Enoxaparin 40 Mg/0.4 Ml Syringe) 40 mg SUBCUT DAILY MARILIA Last Admin: 07/14/25 10:05 Dose: 40 mg Documented By: MAXI Meclizine HCl (Meclizine Hcl 12.5 Mg Tablet) 25 mg PO Q6HR PRN PRN Reason: Vertigo Last Admin: 07/14/25 10:21 Dose: 25 mg Documented By: Admin: 07/13/25 22:57 Dose: 25 mg Documented By: MARGO Naloxone HCl (Naloxone 0.4 Mg/Ml Vial) 0.2 mg IV Q2MIN PRN PRN Reason: Opiate Reversal Stored In Pharmacy 1 each PO PRN PRN PRN Reason: PROTOCOL Ondansetron HCl (Ondansetron 4 Mg/2 Ml Inj) 4 mg IV Q4HR PRN PRN Reason: Nausea And Vomiting Last Admin: 07/14/25 10:21 Dose: 4 mg Documented By: Admin: 07/13/25 22:26 Dose: 4 mg Documented By: MAROG Discontinued Medications Sodium Chloride (Normal Saline 0.9%) 1,000 mls @ 1,000 mls/hr IV BOLUS ONE Stop: 07/13/25 19:10 Last Infusion: 07/13/25 20:05 Dose: Infused Documented By: Admin: 07/13/25 18:15 Dose: 1,000 mls/hr Documented By: BRYCE Ketorolac Tromethamine (Ketorolac 30 Mg/Ml Vial) 15 mg IV NOW ONE Stop: 07/13/25 10:37 Last Admin: 07/13/25 10:47 Dose: 15 mg Documented By: MARIE Methylprednisolone (Methylprednisolone Succ 125 Mg/2 Ml Vial) 125 mg IV NOW ONE Stop: 07/13/25 12:16 Last Admin: 07/13/25 12:33 Dose: 125 mg Documented By: BRYCE Morphine Sulfate (Morphine 4 Mg/Ml Inj) 4 mg IV NOW ONE Stop: 07/13/25 10:37 Last Admin: 07/13/25 10:47 Dose: 4 mg Documented By: MARIE Morphine Sulfate (Morphine 4 Mg/Ml Inj) 4 mg IV Q3HR PRN PRN Reason: Pain, Moderate (4-6) Last Admin: 07/13/25 17:37 Dose: 4 mg Documented By: Admin: 07/13/25 12:33 Dose: 4 mg Documented By: BRYCE Ondansetron HCl (Ondansetron 4 Mg/2 Ml Inj) 4 mg IV NOW ONE Stop: 07/13/25 10:37 Last Admin: 07/13/25 10:48 Dose: 4 mg Documented By: MARIE Oxycodone HCl (Oxycodone Ir 5 Mg Tablet) 5 mg PO NOW ONE Stop: 07/13/25 17:37 Last Admin: 07/13/25 17:39 Dose: Not Given Documented By: BRYCE Oxycodone HCl (Oxycodone Ir 10 Mg Tablet) 10 mg PO NOW ONE Stop: 07/14/25 05:20 Vital Signs Vital signs: Vital Signs - 8 hr 07/13/25 10:30 07/13/25 15:11 07/13/25 17:24 Temperature 98.4 F Pulse Rate 61 53 L 56 L Respiratory Rate 15 14 20 Blood Pressure 159/81 H 120/58 L 132/71 Pulse Oximetry 97 96 93 Oxygen Delivery Method Room Air Room Air MDM - Back Pain/Injury Lab Data 07/14/25 04:31 07/14/25 04:31 Labs: Lab Results 07/13/25 Range/Units 17:16 POC Whole Bld Glucose 124 H (70-99) mg/dL Point of Care Testing Glucose POC 124 Imaging Data MRI lumbar spine: Radiologist's Impression: [place] [address] Magnetic Resonance Report Signed Patient: Bolivar Basurto MR#: [id number] : 1960 Acct:[id number] Age/Sex: 65 / M Date of Service: 07/13/25 Loc: ED Accession Number: [id number] Procedure: MR lumbar spine wo con Ordering Provider: Enrique Gonzalez MD PROCEDURE: MR LUMBAR SPINE WO CON INDICATIONS: Back pain/left leg numbness TECHNIQUE: Noncontrast sagittal T1 spin echo and T2 fast echo, sagittal STIR, and T2 fast spin echo through the lumbar spine. In cases with scoliosis, additional coronal T2 fast spin echo may be performed. COMPARISON: [facility], CT, CT LUMBAR SPINE WO CON, 07/12/2025, 7:36. [facility], MR, L-SPINE WITHOUT CONTRAST, 04/23/2017, 18:04. FINDINGS: Image quality: Excellent. Alignment and Curvature: There is normal bony alignment. Bone Marrow: Marrow is of normal overall signal. No acute vertebral body compression fractures. Spinal Cord: Conus medullaris terminates at the T12-L1 level. Visualized cord demonstrates normal signal and size. Paraspinous Soft Tissues: No paravertebral masses. T12-L1: No canal stenosis or foraminal stenosis. L1-L2: No canal stenosis or foraminal stenosis. L2: There is either a single free disc fragment in the left lateral recess behind the L2 vertebral body extending into the left foramen, or 2 separate free disc fragments, 1 of which would be in the left lateral recess and the other which would be in the left foramen. There is definite impingement on the left L2 nerve root both within the left lateral recess above the foramen and within the foramen. The left lateral recess disc fragment measures 1.6 x 1.1 x 0.6 cm. Reference sagittal image 9 of series 2 and axial image 13 of series 5. Disc fragment within the left lateral recess and left foramen on image 14 of series 5 measures approximately 1.7 x 0.4 cm. L2- L3: There is a free disc fragment in the left foramen impinging on the left L2 nerve root in the left foramen. There is no canal stenosis. The right foramen is patent L3-L4: Short pedicles. Annulus tear plus disc bulge and minimal central posterior disc protrusion. Facet hypertrophy. [id number] canal stenosis. Mild bilateral foraminal stenosis. L4-L5: Annulus tear. Disc bulge. Facet and ligament hypertrophy. Short pedicles. Mild canal stenosis. Vrtm-wh-[id number] bilateral foraminal stenosis. L5-S1: Short pedicles. Facet hypertrophy. No canal stenosis or foraminal stenosis. IMPRESSION: 1. There is a free disc fragment behind the L2 vertebral body in the left lateral recess. This disc fragment measures 1.6 x 1.1 x 0.6 cm and impinges on the left L2 nerve root in the left lateral recess. The level of origin of this disc fragment is difficult to identify. 2. Either the same disc fragment or a different disc fragment is present in the left foramen at L2-L3, impinging on the left L2 nerve root in the left foramen. 3. 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 4. Annulus tears are present at L3-L4 and L4-L5. 5. Canal stenosis is mild to moderate at L3-L4 and mild at L4-L5. Dictated by: Bao Cummins M.D. on 07/13/2025 at 16:31 Approved by: Bao Cummins M.D. on 07/13/2025 at 16:40 [facility] Narrative Medical decision making narrative: Patient brought in by EMS from home for back pain. I saw patient yesterday for back pain. He was doing very well at time of discharge walking out of the ER yesterday after CT imaging of the lumbar spine and pain control. However last night he twisted his back wrong and unable to get up and walk since then. No bowel or bladder incontinence or retention. No saddle paresthesia. He did take his pain medications this morning at 9:00 a.m.. [facility] After history and exam, exam is reassuring. Morphine Toradol will be ordered. MRI of lumbar spine will be ordered. Differential considered: Includes but not limited to exacerbation of back pain Medical records reviewed: ER visit here yesterday Imaging studies independently reviewed: MRI lumbar spine L2 disc fragments seen. Consultations: 5:15 p.m.. Spoke with [facility] ortho spine, Dr. Guzman, no indication for transfer at this time no urgent surgery needed. Patient needs pain control and can follow up with him in the office for outpatient surgery. 6:19 p.m.. I spoke with hospitalist. Dr. Mayfield, he has reviewed MRI. He will admit patient Re-evaluations: 6:00 p.m.. Reviewed with patient my discussion with ortho spine for outpatient surgery. However he does agree for admission here for pain control. Discussion: Appropriate for admission for pain control. Ortho spine has been contacted. Patient neurologically intact at this time. Diagnosis: Back pain Discharge Plan Departure Patient Disposition: Admitted as Observation Clinical Impression: Intractable back pain Admit Date/Time: 07/13/25 18:35 Admit Provider: Priscila Mayfield
[2025-07-13] MEDS: KETOROLAC 30 MG/ML VIAL 15 MG IV (10:47)
[2025-07-13] MEDS: MORPHINE 4 MG/ML INJ IV ×3 (10:47→17:37)
[2025-07-13] MEDS: ONDANSETRON 4 MG/2 ML INJ IV ×2 (10:48→22:26)
[2025-07-13] MEDS: methylPREDNISolone succ 125 MG/2 ML VIAL IV (12:33)
[2025-07-13 15:11] VITALS: BP 120/58; PULSE 53; RESP 14; O2SAT 96
[2025-07-13 17:24] VITALS: BP 132/71; PULSE 56; RESP 20; O2SAT 93
[2025-07-13] MEDS: SODIUM CHLORIDE 0.9% 1,000 ML 1000 ML IV (18:15)
[2025-07-13 19:10] VITALS: BMI 24.9
--- NOTE | 2025-07-13 19:13 | CM.DANOTE ---
ED INSTRUMENT TECH DCP Assessment Note: Pt is a 65yo male, resident [facility], is admitted for unmanaged back/leg pain. Pt lives in a house with his , his adult son and their family. Pt's Primary Care Provider is Dr. Brendan Calhoun and insurance is Medicare and [employer]. Reviewed chart and discussed with multidisciplinary team pt's medical status and initial discharge needs. Per ED Provider, pt to be admitted to acute care for pain control, Ortho spine contacted. ED INSTRUMENT TECH met w/patient at bedside; introduced self and role. Patient was found in bed, alert and oriented, cooperative with assessment. Pt confirmed living situation and good support in . Pt expressed preference in discharge home with and follow up with [facility] (Dr. Oneal). Pt has no history of home health and SNF Rehab. Pt states he is independent and active at baseline. Plan: Acute care admission, anticipating dc home with when medically cleared and pain controlled. CM team will follow closely for coordination of discharge plans. [facility] Discharge Planning/Care Management CM Discharge Assessment Start: 07/13/25 19:10 Freq: Status: Active Protocol: Document 07/13/25 19:10 MW (Rec: 07/13/25 19:12 MW [id number]) Discharge Planning Assessment Assigned Discharge DEVON Rosenbaum Respite Coordinator Provider Brendan Calhoun Insurance Medicare, DPOA/Assigned Betty Basurto, Designee Name Contact Information [phone] Advance Directives? Yes Advance Directives No on File History Provided By Patient,Medical Record Prior Living House Arrangements Comment [place] Household Members spouse,family Type of Drives own vehicle transporation used prior to admit Independent with ADL Yes 's Is patient alert and Yes oriented? Discharge Plan Home Transportation Family Arrangement Referrals Initiated None needed Review Status In Process Please Provide Date 07/13/25 Initial DC Assessment Was Performed Next Review Type Continued Stay Review
[2025-07-13 20:15] VITALS: BP 136/70; PULSE 53; RESP 18; TEMP 36.8; O2SAT 95
[2025-07-13] MEDS: MECLIZINE HCL 12.5 MG TABLET 25 MG PO (22:57)
[2025-07-14 02:00] VITALS: BP 144/63; PULSE 57; RESP 18; TEMP 36.8; O2SAT 96
--- NOTE | 2025-07-14 05:30 | P.HP_ITS ---
History of Present Illness History of Present Illness Date Patient Seen: 07/12/25 Time Patient Seen: 20:14 Chief complaint: Back/Leg pain Narrative: 65-year-old male with past medical history of overreactive bladder, BPH and erectile dysfunction presents with back pain. Of note patient was seen in our ER yesterday due to similar complaints and was discharged home after CT imaging of the lumbar spine. The patient was deemed stable and was discharged home on oral pain medication. However the patient states that his back pain has worsened and unable to tolerate getting around at home. The patient brought himself back to the ER for further evaluation. Per the patient report the patient might have twisted his back wrong 2 days ago and since then he has been having these severe pain. The patient denies any saddle paresthesia or urinary or bowel incontinence. In addition the patient denies any fever, chills, nausea, vomiting, diarrhea, chest pain or shortness of breath. In the emergency room, the patient was hemodynamically stable. MRI of the lumbar spine however shows a free disc fragment behind the L2 vertebral body in the left lateral access. This disc fragment possibly impinges on the left L2 nerve root in the left lateral axis. There is also a fragment seen in the left foramen at L2-L3 impinging on the left L2 nerve root in the left foramen. These findings were discussed with Dr. Guzman orthospine from [facility] who states that the patient does not need to be transferred or urgent surgery needed. Recommended to admit the patient here for pain control and follow-up with him in the office or outpatient surgery once pain is stable. [facility] Medical History (Updated 07/13/25 @ 18:21 by Enrique Gonzalez MD) Cervical strain Overactive bladder Secondhand smoke exposure Urine stream spraying Slow urinary stream Nocturia more than twice per night Feeling of incomplete bladder emptying Medicare annual wellness visit, initial Skin lesion Colon polyps Left knee pain Elevated PSA Erectile dysfunction Family history of prostate cancer in father Lower urinary tract symptoms (LUTS) BPH w urinary obs/LUTS Hx of fracture of leg Urinary frequency Enlarged prostate Surgical History History of hernia repair (~1999) History of knee surgery (~2013) Family History Father Cancer Mother History of heart disease Grandfather Lung cancer Grandmother History of heart disease Grandmother Stroke Social History marital status: household members: spouse and family occupational status: employed Smoking Status: Never smoker alcohol intake: current substance use type: does not use caffeine: No Meds Home Medications and Allergies Home Medications ?Medication ?Instructions ?Recorded ?Confirmed ?Type hydrocodone 5 mg-acetaminophen 325 1 tab PO Q6H PRN pa in #20 tabs 07/12/25 07/13/25 Rx mg tablet methylprednisolone 4 mg tablets in See Rx Instructions PO .COMPLEX 07/12/25 07/13/25 Rx a dose pack (Medrol (Gama)) #21 ea ondansetron 4 mg disintegrating 4 mg PO Q6H PRN nausea and 07/12/25 07/13/25 Rx tablet vomiting #20 tabs Allergies Allergy/AdvReac Type Severity Reaction Status Date / Time No Known Drug Allergies Allergy Verified 07/13/25 10:33 Review of Systems Review of Systems ROS: Yes All systems reviewed with the patient and are negative except as otherwise documented Exam Vital Signs (past 8 hours): - 07/14/25 02:00 Temperature 98.3 F Pulse Rate 57 L Respiratory Rate 18 Blood Pressure 144/63 H Pulse Oximetry 96 Oxygen Flow Rate 0 Oxygen Delivery Method Room Air Oxygen Flow Rate 0 Narrative Exam Narrative: Physical Exam: GENERAL: The patient is not in any acute distressed. Awake and alert. HEENT: Nonicteric sclerae, PERRLA, EOMI. Oropharynx clear. Moist mucous membranes. Conjunctivae appear well perfused. HEART: Regular rate and rhythm without murmurs. No lower extremities edema. LUNGS: Clear to auscultation bilaterally. No wheezing, crackles or rhonchi ABDOMEN: Soft, positive bowel sounds, nontender. SKIN: No rash, no excessive bruising, petechiae, or purpura. NEUROLOGIC: AxO x 3. Cranial nerves II-XII intact without motor/sensory deficit. Objective Labs 07/14/25 04:31 07/14/25 04:31 Labs: Laboratory Results - last 24 hr 07/13/25 17:16 POC Whole Bld Glucose 124 H Assessment & Plan Assessment & Plan narrative: Acute back pain with disc fragment poss impinging on the left L2 nerve root. Admit the patient to medical observation. Pain control with IV pain medication oral pain medication. PT OT. Of note,Dr. Guzman, orthospine from [facility] who states that the patient does not need to be transferred or urgent surgery needed. Recommended to admit the patient here for pain control and follow-up with him in the office or outpatient surgery once pain is stable. Note, Patient denies any neurological deficit from this back pain and patient is nonfocal on exam DVT prophylaxis SCDs due to observational status. CODE STATUS full code. Disposition likely home in 1 to 2 days if pain is controlled - As the provider of this telehealth evaluation, requested by the patient's evaluating physician, I attest that I introduced myself to the patient, provided my credentials and determined that telemedicine via a real-time, 2 way interactive audio and video platform is an appropriate and effective means of providing this service. - I reviewed the patient's chart and had a discussion with the member of the patient's treatment team. - The patient and I mutually agreed with continuation of this evaluation via telemedicine. The patient consented for the telemedicine evaluation. - This virtual encounter was taken place from [place] by Dr. Wagner Brownlee. The patient was evaluated at [facility]. The encounter was approximately 35 minutes. The nurse was present during the entire time of the encounter and was able assists with the stethoscope to listen to the patients. Time-Based Coding :: [TOTAL MINUTES] spent with patient and on the chart (including review of chart, obtaining history, exam, reviewing outside data, placing orders, documenting exam and treatment plan, and counseling patient) on [DATE].
[2025-07-14 05:48] LABS: Alanine Aminotransferase 19 IU/L (<50); Albumin 3.7 g/dL (3.5-5.0); Albumin Globulin Ratio 1.4 (1.0-2.8); Alkaline Phosphatase 56 U/L (38-126); Blood Urea Nitrogen 31 mg/dL (9-20); Calcium 8.8 mg/dL (8.4-10.2); Carbon Dioxide 22 mmol/L (22-32); Chloride 103 mmol/L (98-107); Estimated Glomerular Filt Rate > 60 mL/min (>60); Globulin 2.6 g/dL (1.7-4.1); Glucose 116 mg/dL (70-99); HEMOLYSIS < 15 (0-50); Potassium 4.5 mmol/L (3.4-5.1); Sodium 133 mmol/L (137-145); Total Protein 6.3 g/dL (6.3-8.2)
[2025-07-14 05:53] LABS: Add Manual Diff / Slide Review NO; Hematocrit 44.0 % (41-53); Hemoglobin 15.3 g/dL (13.5-17.5); Lymphocytes Absolute Auto 900 /uL (1100-4500); Mean Corpuscular HGB Conc 34.7 % (30-36); Mean Corpuscular Hemoglobin 31.4 PG (26-34); Mean Corpuscular Volume 90.4 fL (80-100); Platelet Count 211 X10^3/uL (150-400)
--- NOTE | 2025-07-14 07:06 | P.PN_ITS ---
Subjective Subjective Date Patient Seen: 07/14/25 Interval history: 65-year-old male with past medical history of overactive bladder, BPH and erectile dysfunction presents with back pain. Of note patient was seen in our ER yesterday due to similar complaints and was discharged home after CT imaging of the lumbar spine. The patient was deemed stable and was discharged home on oral pain medication. However the patient states that his back pain has worsened and unable to tolerate getting around at home. The patient brought himself back to the ER for further evaluation. Per the patient report the patient might have twisted his back wrong 2 days ago and since then he has been having these severe pain. The patient denies any saddle paresthesia or urinary or bowel incontinence. In addition the patient denies any fever, chills, nausea, vomiting, diarrhea, chest pain or shortness of breath. In the emergency room, the patient was hemodynamically stable. MRI of the lumbar spine however shows a free disc fragment behind the L2 vertebral body in the left lateral access. This disc fragment possibly impinges on the left L2 nerve root in the left lateral axis. There is also a fragment seen in the left foramen at L2-L3 impinging on the left L2 nerve root in the left foramen. These findings were discussed with Dr. Guzman, orthospine from [facility] who states that the patient does not need to be transferred or urgent surgery needed. Recommended to admit the patient here for pain control and follow-up with him in the office or outpatient surgery once pain is stable. 07/14: White blood count 14.5. BNP normal. He describes low pelvic back pain radiating to the left knee. A small area of diminished sensation is subjectively present on the thigh. He says he has 12-15 steps at home and does not feel optimistic about regaining control of pain and mobilization without proceeding with surgery emergently. We discussed the indications for emergent spinal surgery which at this point he does not clearly have. He has no saddle symptoms. Exam Narrative: Physical Exam: GENERAL: He is in moderate distress from back and sciatic pain. Awake and alert. HEENT: Nonicteric sclerae, Conjunctivae appear well perfused. HEART: Regular rate and rhythm without murmurs. No lower extremities edema. LUNGS: Clear to auscultation bilaterally. No wheezing, crackles or rhonchi SKIN: No rash, no excessive bruising, petechiae, or purpura. NEUROLOGIC: Straight leg raising is positive at 35? on the left. Left thigh anterior small area diminished sensation to touch compared to the right thigh. 5/5 bilateral lower extremity motor function and no distal sensory deficit. Reflexes are symmetric and normal. Assessment & Plan Assessment & Plan narrative: Acute back pain/left-sided sciatica with disc fragment impinging on the left L2 nerve root. Per ortho spine rec. rest, pain control with IV pain medication oral pain medication. PT OT. Dr. Guzman, orthospine from [facility] reviewed his case details and imaging and felt that he does not need to be transferred or urgent surgery needed. Will need to follow-up with him in the office or outpatient surgery once pain is stable. Holding off on steroid treatment as this was given initially on his 1st ED visit and was ineffective. DVT prophylaxis SCDs due to observational status. CODE STATUS full code. Disposition likely home in 1 to 2 days if pain is controlled Exam Vital Signs (past 8 hours): - 07/14/25 02:00 Temperature 98.3 F Pulse Rate 57 L Respiratory Rate 18 Blood Pressure 144/63 H Pulse Oximetry 96 Oxygen Flow Rate 0 Oxygen Delivery Method Room Air Oxygen Flow Rate 0 Objective Labs 07/14/25 04:31 07/14/25 04:31 Labs: Laboratory Results - last 24 hr 07/13/25 07/14/25 17:16 04:31 WBC 14.5 H RBC 4.87 Hgb 15.3 Hct 44.0 MCV 90.4 MCH 31.4 MCHC 34.7 RDW 13.3 Plt Count 211 Neut % (Auto) 87.6 H Lymph % (Auto) 6.0 L Ware % (Auto) 6.3 Eos % (Auto) 0.0 L Baso % (Auto) 0.1 Neut # (Auto) 79187 H Lymph # (Auto) 900 L Ware # (Auto) 900 Eos # (Auto) 0 Baso # (Auto) 0 Sodium 133 L Potassium 4.5 Chloride 103 Carbon Dioxide 22 BUN 31 H Creatinine 0.86 Estimated GFR > 60 BUN/Creatinine Ratio 36.0 H Glucose 116 H POC Whole Bld Glucose 124 H Calcium 8.8 Total Bilirubin 0.9 AST 27 ALT 19 Alkaline Phosphatase 56 Total Protein 6.3 Albumin 3.7 Globulin 2.6 Albumin/Globulin Ratio 1.4 [facility] Medical History (Updated 07/13/25 @ 18:21 by Enrique Gonzalez MD) Cervical strain Overactive bladder Secondhand smoke exposure Urine stream spraying Slow urinary stream Nocturia more than twice per night Feeling of incomplete bladder emptying Medicare annual wellness visit, initial Skin lesion Colon polyps Left knee pain Elevated PSA Erectile dysfunction Family history of prostate cancer in father Lower urinary tract symptoms (LUTS) BPH w urinary obs/LUTS Hx of fracture of leg Urinary frequency Enlarged prostate Surgical History History of hernia repair (~1999) History of knee surgery (~2013) Family History Father Cancer Mother History of heart disease Grandfather Lung cancer Grandmother History of heart disease Grandmother Stroke Social History marital status: household members: spouse and family occupational status: employed Smoking Status: Never smoker alcohol intake: current substance use type: does not use caffeine: No Assessment & Plan Time-Based Coding :: [TOTAL MINUTES] spent with patient and on the chart (including review of chart, obtaining history, exam, reviewing outside data, placing orders, documenting exam and treatment plan, and counseling patient) on [DATE].
--- NOTE | 2025-07-14 08:55 | PT.IIE ---
Surgical History (Last Reviewed 05/31/24 @ 07:41 by Enrique Bellamy MD) History of hernia repair (~1999) History of knee surgery (~2013) Medical History (Last Updated 12/05/24 @ 10:39 by Brendan Calhoun DO) BPH w urinary obs/LUTS Cervical strain Colon polyps Elevated PSA Enlarged prostate Erectile dysfunction Family history of prostate cancer in father Feeling of incomplete bladder emptying Hx of fracture of leg Left knee pain Lower urinary tract symptoms (LUTS) Medicare annual wellness visit, initial Nocturia more than twice per night Overactive bladder Secondhand smoke exposure Skin lesion Slow urinary stream Urinary frequency Urine stream spraying Physical Therapy Inpatient Evaluation/Re-Eval M1 PT/OT-IP Prior Functional Status Start: 07/14/25 12:17 Freq: NEEDED Status: Active Protocol: Document 07/14/25 08:55 AB (Rec: 07/14/25 12:33 [id number]) Medical Review Prior Functional Status Medical History Yes Reviewed Communication able to make needs known Mobility and Gait pt stated that he was independent with all mobilities and ambulation without AD Social History Household Members spouse,family Living Arrangements House Number of Floors ( 3 or More Floors Floors) Number of Stairs To pt stays on main level of the house Enter/Railing? has ~10-12 steps with L rail ascending to enter the house Home Environment Standard Height Toilet,Walk in Shower Home Equipment Raised Toilet Seat w/Armrests Additional Social spouse will get a shower chair, FWW for pt History Comment M2 PT-IP Current Condition Start: 07/14/25 12:17 Freq: NEEDED Status: Active Protocol: Document 07/14/25 08:55 AB (Rec: 07/14/25 12:33 AB [id number]) Physical Therapy Current Condition Current Condition Evaluation Date 07/14/25 Treatment Diagnosis LBP; difficulty in walking Onset Date 07/13/25 M3 PT-IP Subjective Start: 07/14/25 12:17 Freq: NEEDED Status: Active Protocol: Document 07/14/25 08:55 AB (Rec: 07/14/25 12:33 [id number]) Subjective Physical Therapy Visit Type Type Initial Evaluation Visit Start Time 08:55 Visit Stop Time 09:25 Number of SCORER HELPER Visits 0 Physical Therapy Visit Comments Patient Comments agreeable to do PT Therapy Pain Assessment Pain When Pain Assessed At Rest Pain Present Pain Present Pain Reported Location left back and left leg Intensity 4 Scale Used increases with mobility Pain Behaviors Facial Grimacing,Guarding,Wincing Pain Management Distraction,Modification of Treatment,Re-positioning, Techniques Timing of Activity with Medications M4 PT-IP Mobility and Gait Start: 07/14/25 12:17 Freq: NEEDED Status: Active Protocol: Document 07/14/25 08:55 AB (Rec: 07/14/25 12:33 AB [id number]) PT-Bed Mobility Assessment Rolling Type of Rolling Log Rolling Level of Assist Standby Assistance Supine to Sit Supine to Sit Standby Assistance Sit to Supine Sit to Supine Standby Assistance PT-Transfer Assessment Sit to and From Stand Sit to and from Minimal Assistance,1 Person Assistance,Use of Upper Stand Extremities Equipment Transfer Assistive Gait Belt,Front Wheeled Walker Device Orthotic/Prosthetic No Devices or Brace: Comments Mobility Comments pt in bed and agreeable to do PT. obtained PLOF and home set up. BP: 123/77 O2 sat 98% AR 86. educated pt regarding back precautions and log roll bed mobility. completed log roll supine to sit SBA and cues provided. sit to stand min A and ambulated ~ 10 ft using FWW. c/o increase LLE pain and weakness/ stiffness needing to go back to bed. log roll sit to supine SBA and cues. positioned pt in bed. call light and table placed within reach. pt requested for pain meds and nursing staff informed Gait Assessment Gait Gait Assistance Minimum Assistance Required: Distance (Feet) 10 Able to Maintain Yes Weight Bearing Status During Gait Assistive Devices Assistive Device Gait Belt,Front Wheeled Walker Orthotic/Prosthetic No Devices or Brace: Gait Deviations General Gait Pattern Decreased Stride Length,Decreased Feet Clearance Factors Limiting Gait Function Factors Limiting Decreased Activity Tolerance,Decreased Strength,Limited Gait Function Range of Motion,Pain,Poor Balance,Poor Safety Awareness PT-Balance Assessment Sitting Balance and Reactions Static Sitting Normal Balance Ability Dynamic Sitting Good Balance Ability Standing Balance and Reactions Static Standing Fair Balance Ability Dynamic Standing Poor Balance Ability Device Used FWW M5 PT-IP Objective Assessments Start: 07/14/25 12:17 Freq: NEEDED Status: Active Protocol: Document 07/14/25 08:55 AB (Rec: 07/14/25 12:33 AB [id number]) Orientation Orientation/Cognition Level of Alertness Alert Orientation Name,Situation Language Function No Deficits Noted Ability Safety Awareness Decreased Safety Awareness Memory Description No Deficits Noted Gross Range of Motion Lower Extremity ROM Assessment Within Functional Limits Strength Lower Extremity Strength Assessment Within Functional Limits Muscle Tone Muscle Tone WNL Yes M6 PT-IP Treatment Start: 07/14/25 12:17 Freq: NEEDED Status: Active Protocol: Document 07/14/25 08:55 AB (Rec: 07/14/25 12:33 AB [id number]) Physical Therapy Treatment Education Education Provided Precautions,Safety M7 PT-IP Assessment and Plan Start: 07/14/25 12:17 Freq: NEEDED Status: Active Protocol: Document 07/14/25 08:55 AB (Rec: 07/14/25 12:33 AB [id number]) PT Summary Assessment and Plan Potential Rehabilitation Fair Potential Status of Condition Evolving at Evaluation Summary Impairments Pain,ROM,Strength,Balance,Coordination,Sensation,Bed Mobility,Transfers,Gait,Activity Tolerance Assessment Summary pt is a 65 y/o M who is admitted for LBP. pt found to have a disc fragment impinging on L side of L2 per MRI. pt continues to have severe back pain with mobility affecting independence. pt requiring min A for ambulation using FWW but only tolerate ~ 10 ft of ambulation due to pain. pt plans to go home and spouse to assist him. will continue to assess progress. Goals Bed Mobility Goal Independent Transfer Goal Independent,Front Wheeled Walker Gait Goal Independent,Front Wheel Walker Gait Distance 100 Other Goals improve ambulation using FWW ~ 150 ft mod I up/down 10 steps using L rail ascending SBA Days to Meet Goals 10 Frequency of Treatment Frequency Of Once a Day Treatment Treatment Plan Physical Therapy Bed Mobility Training,Transfer Training,Gait Training, Treatment Plan Therapeutic Exercise,Balance Retraining,Discharge Planning,Hot or Cold Pack,Neuromuscular Re-ed, Coordination Retraining,Manual Therapy Precautions Lumbar Precautions Log Roll,No Twisting,Limit Bending,Lifting Restriction of 10 lbs Recommendations To Nursing Amount of Assist 1 Person Assist Needed Discharge Recommendations PT Discharge Home with 11/05 Assist Available,Home Health Recommendations Transportation Needs Wheelchair/Cabulance,Stretcher/Ambulance at Discharge - PT assist 1
[2025-07-14] MEDS: ENOXAPARIN 40 MG/0.4 ML SYRINGE SUBCUT (10:05)
[2025-07-14] MEDS: ONDANSETRON 4 MG/2 ML INJ IV (10:21)
[2025-07-14] MEDS: MECLIZINE HCL 12.5 MG TABLET 25 MG PO (10:21)
[2025-07-14 12:00] VITALS: BP 125/70; PULSE 60; RESP 18; TEMP 36.7; O2SAT 98
--- NOTE | 2025-07-14 12:34 | OT.IP.EVAL ---
Past Medical History (Last Updated 12/05/24 @ 10:39 by Brendan Calhoun DO) BPH w urinary obs/LUTS Cervical strain Colon polyps Elevated PSA Enlarged prostate Erectile dysfunction Family history of prostate cancer in father Feeling of incomplete bladder emptying Hx of fracture of leg Left knee pain Lower urinary tract symptoms (LUTS) Medicare annual wellness visit, initial Nocturia more than twice per night Overactive bladder Secondhand smoke exposure Skin lesion Slow urinary stream Urinary frequency Urine stream spraying Surgical History (Last Reviewed 05/31/24 @ 07:41 by Enrique Bellamy MD) History of hernia repair (~1999) History of knee surgery (~2013) Occupational Therapy Inpatient Evaluation/Re-Eval M1 PT/OT-IP Prior Functional Status Start: 07/14/25 12:17 Freq: NEEDED Status: Active Protocol: Document 07/14/25 08:55 AB (Rec: 07/14/25 12:33 AB [id number]) Medical Review Prior Functional Status Medical History Yes Reviewed Communication able to make needs known Mobility and Gait pt stated that he was independent with all mobilities and ambulation without AD Social History Household Members spouse,family Living Arrangements House Number of Floors ( 3 or More Floors Floors) Number of Stairs To pt stays on main level of the house Enter/Railing? has ~10-12 steps with L rail ascending to enter the house Home Environment Standard Height Toilet,Walk in Shower Home Equipment Raised Toilet Seat w/Armrests Additional Social spouse will get a shower chair, FWW for pt History Comment M2 OT-IP Current Condition Start: 07/14/25 12:16 Freq: Status: Active Protocol: Document 07/14/25 12:16 [facility] (Rec: 07/14/25 12:34 [facility] Desktop) Occupational Therapy Current Condition Current Condition Evaluation Date 07/14/25 Treatment Diagnosis Back pain with free disc fragment Diagnosis Onset Date 07/13/25 Post Operative Precautions Lumbar Precautions Log Roll,No Twisting,Limit Bending,Lifting Restriction of 10 lbs,Gait Belt above Incisional Area M3 OT- IP Subjective and Pain Start: 07/14/25 12:16 Freq: Status: Active Protocol: Document 07/14/25 12:16 [facility] (Rec: 07/14/25 12:34 [facility] Desktop) OT- Subjective Occupational Therapy Visit Type Type Initial Evaluation Visit Start Time 10:45 Visit Stop Time 11:05 Occupational Therapy Visit Comments Patient Comments Pt agreed to get up to use the toilet. Patient/Caregiver To go home. Goals OT Pain Assessment Pain When Pain Assessed During Mobility Pain Present Pain Present Pain Reported Location left back and left leg Pain Behaviors Facial Grimacing,Holding Area M4 OT- IP ADL's Start: 07/14/25 12:16 Freq: Status: Active Protocol: Document 07/14/25 12:16 [facility] (Rec: 07/14/25 12:34 [facility] Desktop) OT [id number] General Evaluation Self-Feeding Ability Independent OT ADL-Grooming General Evaluation Grooming Ability Independent OT ADL-Oral Care General Eval Oral Care Ability Independent OT ADL-Dressing Comments OT Dressing Comments Educated to dress the LLE first and take out last. Spoke of LB dressing equipment but pt insists his to assist. OT ADL-Toileting General Evaluation Toileting Ability Standby Assistance Comments OT Toileting Pt able to use the fww over the toilet to urinate. Comments Suggested to get a BSC and use of urinal at night if needed. OT ADL-Bathing Comments OT Bathing Comments Pt's able to assist pt. M5 OT- IP IADL's Start: 07/14/25 12:16 Freq: Status: Active Protocol: Document 07/14/25 12:16 [facility] (Rec: 07/14/25 12:34 [facility] Desktop) OT-Instrumental Activities of Daily Living Deficits IADL Deficits Deficits Identified Home Safety Awareness Awareness of Need Good Awareness for Assistance at Home Ability to Problem Able to Problem Solve Solve Emergency Situations Medication Management Medication Pt aware if groggy from pain medications that his Management Comments can assist. Meal Preparation Meal Preparation Caregiver Provides Assist Nuclear Equipment Sales Engineer Nuclear Equipment Sales Engineer Caregiver Provides Assist M6 OT- IP Functional Cognition Start: 07/14/25 12:16 Freq: Status: Active Protocol: Document 07/14/25 12:16 [facility] (Rec: 07/14/25 12:34 [facility] Desktop) Cognitive Factors Limiting Selfcare Function Cognitive Ability Level of Alertness Alert Patient Orientation Name,Age,Birthday,Month,Date,Year,Day of Week,Place, Situation Attention Span Capable of Focused Attention,Capable of Sustained Ability Attention Ability to Follow Able to Follow One Step Commands Commands Cognitive Comments Cognitive Assessment Pt needing safety cues for FWW use, push up and reach Comments back from surfaces when coming to stand/sit, and needing more education of log rolling. OT- Vision and Hearing OT- Hearing Assessment OT- Hearing WFL Assessment OT- Vision Assessment Visual Acuity Glasses For Reading Visual Attentiveness WFL Occular Pursuits WFL M7 OT- IP Mobility and Balance Start: 07/14/25 12:16 Freq: Status: Active Protocol: Document 07/14/25 12:16 [facility] (Rec: 07/14/25 12:34 [facility] Desktop) OT- Bed Mobility Assessment Supine to Sit Supine to Sit Assist Contact Guard Assistance,Bedrails Sit to Supine Sit to Supine Assist Standby Assistance,Contact Guard Assistance OT-Transfer Assessment Sit to and From Stand Sit to and from Standby Assistance,Contact Guard Assistance Stand Transfers Transfer Ability Standby Assistance,Contact Guard Assistance Technique Transfer Destination Bed,Toilet Transfer Technique Stand Step Pivot Devices Transfer Assistive Front Wheeled Walker Devices Comments Mobility Comments Pt insists on not using the gait belt. CGA and heavy use bed rail to get up. Suggested to get a bedrail or hold the FWW in place next to the bed. CGA/close SBA with FWW to the bathroom and and heavy use of arms on the FWW. OT- Balance Assessment Sitting Balance and Reactions Static Sitting Normal Balance Ability Dynamic Sitting Good Balance Ability Standing Balance and Reactions Static Standing Good Balance Ability Dynamic Standing Fair Balance Ability M8 OT- IP Objective Assessments Start: 07/14/25 12:16 Freq: Status: Active Protocol: Document 07/14/25 12:16 [facility] (Rec: 07/14/25 12:34 [facility] Desktop) OT Gross Range of Motion Upper Extremity Range of Motion Assessment Within Functional Limits OT Strength Comments Strength Comments NT due to back pain but WFL for needs. M9 OT- IP Assessment and Plan Start: 07/14/25 12:16 Freq: Status: Active Protocol: Document 07/14/25 12:16 [facility] (Rec: 07/14/25 12:34 [facility] Desktop) OT Summary Assessment and Plan Potential Rehabilitation Good Potential Analytic Complexity Low at Evaluation Summary OT Impairments Pain,Functional Mobility,Dressing,Bathing,Toilet Transfers,Shower Transfers,Activity Tolerance Progress Towards Progressing Toward Goals,Slow Progress due to Medical Goals Issues Assessment Summary Pt low complexity and main barriers are steps, pain , and will now need assist for ADL and IADL needs from his . Pt's has already picked up FWW, shower chair, and RTS with handles. Also suggested BSC and WC for long distances. Pt and having no other OT needs and therefore discharge pt from OT services. Pt wanting to continue PT for doing steps. Frequency of Treatment Frequency Of Discharge Treatment Discharge Recommendations OT Discharge Home with 11/05 Assist Available Recommendations Transportation Needs Private Vehicle at Discharge
--- NOTE | 2025-07-14 14:38 | CM.DPNOTE ---
DCP Continued: Reviewed EMR and team rounds for pt?s medical status. Per hospitalist, pain management still in process; will follow up with [facility] outpatient. Per PT, pt recommended for home with assistance but pain is a big barrier to progress in treatment. Per RN, pt on PO pain medications. No discharge needs identified at this time. Plan: Anticipating dc on 07/15 with family to transport when medically cleared and pain managed. CM Team will continue to follow for coordination of discharge plans. [facility] Kline
[2025-07-14] MEDS: KETOROLAC 30 MG/ML VIAL IV ×2 (16:18→22:44)
[2025-07-14] MEDS: CYCLOBENZAPRINE 10 MG TABLET PO (16:19)
--- NOTE | 2025-07-14 16:29 | PC.NURSE ---
Pt is complaining of increased pain down left leg and thigh area, does not want oxycodone I've read too much about addiction problems notified Dr. ortiz new orders given. pt medicated with 2 vicodin po, toradol 30mg ivp and Flexeril 10mg. teaching done about new meds, call light within reach reminded to call when need to get up. add pt refuses ice
[2025-07-14 18:00] VITALS: BP 129/77; PULSE 64; RESP 18; TEMP 36.7; O2SAT 98
[2025-07-14 21:24] VITALS: BP 130/72; PULSE 60; RESP 18; TEMP 37.3; O2SAT 97
[2025-07-14] MEDS: SODIUM CHLORIDE 0.9% FLUSH 10 ML IV (22:45)
[2025-07-15] MEDS: CYCLOBENZAPRINE 10 MG TABLET PO (01:26)
[2025-07-15 03:00] VITALS: BP 131/81; PULSE 53; RESP 18; TEMP 36.5; O2SAT 95
[2025-07-15] MEDS: KETOROLAC 30 MG/ML VIAL IV ×4 (03:20→22:52)
[2025-07-15] MEDS: MECLIZINE HCL 12.5 MG TABLET 25 MG PO (09:10)
--- NOTE | 2025-07-15 10:40 | PT.IPTN ---
Current Diagnoses Dorsalgia, unspecified (07/13/25) Physical Therapy Treatment Note M2 PT-IP Current Condition Start: 07/14/25 12:17 Freq: NEEDED Status: Active Protocol: Document 07/14/25 08:55 AB (Rec: 07/14/25 12:33 AB [id number]) Physical Therapy Current Condition Current Condition Evaluation Date 07/14/25 Treatment Diagnosis LBP; difficulty in walking Onset Date 07/13/25 M3 PT-IP Subjective Start: 07/14/25 12:17 Freq: NEEDED Status: Active Protocol: Document 07/15/25 10:40 AB (Rec: 07/15/25 12:20 AB Desktop) Subjective Physical Therapy Visit Type Type Treatment Note Visit Start Time 10:40 Visit Stop Time 10:55 Number of PEDIATRIC LPN Visits 0 Physical Therapy Visit Comments Patient Comments continues to c/o severe sharp pain from back to LLE Therapy Pain Assessment Pain When Pain Assessed At Rest Pain Present Pain Present Pain Reported Location left back and left leg Scale Used increases to 10/10 with mobility Pain Management Distraction,Modification of Treatment,Re-positioning, Techniques Timing of Activity with Medications M4 PT-IP Mobility and Gait Start: 07/14/25 12:17 Freq: NEEDED Status: Active Protocol: Document 07/15/25 10:40 AB (Rec: 07/15/25 12:20 AB Desktop) PT-Bed Mobility Assessment Rolling Type of Rolling Log Rolling Supine to Sit Supine to Sit Standby Assistance,Bedrails Sit to Supine Sit to Supine Standby Assistance,Bedrails PT-Transfer Assessment Sit to and From Stand Sit to and from Contact Guard Assistance,1 Person Assistance,Use of Stand Upper Extremities Equipment Transfer Assistive Front Wheeled Walker Device Orthotic/Prosthetic No Devices or Brace: Comments Mobility Comments pt supine in bed and agreed to do PT. pt continues to c /o severe back pain radiating down to LLE . pt agreed to get up but wants to go back to bed afterwards due to decrease tolerating sitting position aggravating pain. log roll supine to sit SBA. only sat for a few seconds and needed to stand immediately due to back pain. sit to stand CGA and ambulated in room using FWW CGA ~ 10 ft pt with increase sharp pain down LLE and needing to lay back in bed. log roll sit to supine SBA using bed rail. positioned in bed. call light and table placed within reach. pt wanting to know if his admission status is now as inpt. asked case hardener and confirmed. informed pt. Gait Assessment Gait Gait Assistance Contact Guard Assist Required: Distance (Feet) 10 Able to Maintain Yes Weight Bearing Status During Gait Assistive Devices Assistive Device Front Wheeled Walker Orthotic/Prosthetic No Devices or Brace: Gait Deviations General Gait Pattern Decreased Stride Length,Decreased Feet Clearance Factors Limiting Gait Function Factors Limiting Decreased Activity Tolerance,Decreased Sensation, Gait Function Decreased Strength,Difficulty Following Directions, Limited Range of Motion,Pain,Poor Balance,Poor Safety Awareness M5 PT-IP Objective Assessments Start: 07/14/25 12:17 Freq: NEEDED Status: Active Protocol: Document 07/14/25 08:55 AB (Rec: 07/14/25 12:33 AB [id number]) Orientation Orientation/Cognition Level of Alertness Alert Orientation Name,Situation Language Function No Deficits Noted Ability Safety Awareness Decreased Safety Awareness Memory Description No Deficits Noted Gross Range of Motion Lower Extremity ROM Assessment Within Functional Limits Strength Lower Extremity Strength Assessment Within Functional Limits Muscle Tone Muscle Tone WNL Yes M6 PT-IP Treatment Start: 07/14/25 12:17 Freq: NEEDED Status: Active Protocol: Document 07/15/25 10:40 AB (Rec: 07/15/25 12:20 AB Desktop) Physical Therapy Treatment Education Education Provided Precautions,Safety M7 PT-IP Assessment and Plan Start: 07/14/25 12:17 Freq: NEEDED Status: Active Protocol: Document 07/15/25 10:40 AB (Rec: 07/15/25 12:20 AB Desktop) PT Summary Assessment and Plan Potential Rehabilitation Fair Potential Summary Impairments Pain,ROM,Strength,Balance,Coordination,Sensation,Tone, Cognition,Bed Mobility,Transfers,Gait,Activity Tolerance Progress Towards Slow Progress due to Pain Goals Assessment Summary pt requiring SBA for bed mobility and CGA for ambulation using FWW but unable to tolerate much activity due to increase LBP radiating down to LLE. pt only able to tolerate ~ 10 ft of ambulation. will continue to assess progress. pt's main limiting factor is his back pain affecting mobility independence. Goals Bed Mobility Goal Independent Transfer Goal Independent,Front Wheeled Walker Gait Goal Independent,Front Wheel Walker Gait Distance 100 Other Goals improve ambulation using FWW ~ 150 ft mod I up/down 10 steps using L rail ascending SBA Days to Meet Goals 10 Frequency of Treatment Frequency Of Once a Day Treatment Treatment Plan Physical Therapy Bed Mobility Training,Transfer Training,Gait Training, Treatment Plan Therapeutic Exercise,Balance Retraining,Discharge Planning,Hot or Cold Pack,Neuromuscular Re-ed, Coordination Retraining,Manual Therapy Precautions Lumbar Precautions Log Roll,No Twisting,Limit Bending,Lifting Restriction of 10 lbs Recommendations To Nursing Amount of Assist 1 Person Assist Needed Discharge Recommendations PT Discharge Home with 11/05 Assist Available,Home Health Recommendations Transportation Needs Wheelchair/Cabulance,Stretcher/Ambulance at Discharge - PT assist 1
[2025-07-15] MEDS: GABAPENTIN 100 MG CAPSULE PO ×3 (11:09→21:20)
[2025-07-15] MEDS: tiZANidine 4 MG TABLET 2 MG PO ×3 (11:09→21:20)
[2025-07-15] MEDS: ACETAMINOPHEN 325 MG TABLET 650 MG PO ×3 (11:17→21:19)
--- NOTE | 2025-07-15 14:08 | PM.PN.1 ---
Subjective Subjective Date Patient Seen: 07/15/25 Interval history: Chief complaint: Herniated disc with radiculopathy History of present illness: 07/13: 65-year-old male with past medical history of overreactive bladder, BPH and erectile dysfunction presents with back pain. Of note patient was seen in our ER yesterday due to similar complaints and was discharged home after CT imaging of the lumbar spine. The patient was deemed stable and was discharged home on oral pain medication. However the patient states that his back pain has worsened and unable to tolerate getting around at home. The patient brought himself back to the ER for further evaluation. Per the patient report the patient might have twisted his back wrong 2 days ago and since then he has been having these severe pain. The patient denies any saddle paresthesia or urinary or bowel incontinence. In addition the patient denies any fever, chills, nausea, vomiting, diarrhea, chest pain or shortness of breath. In the emergency room, the patient was hemodynamically stable. MRI of the lumbar spine however shows a free disc fragment behind the L2 vertebral body in the left lateral access. This disc fragment possibly impinges on the left L2 nerve root in the left lateral axis. There is also a fragment seen in the left foramen at L2-L3 impinging on the left L2 nerve root in the left foramen. These findings were discussed with Dr. Guzman, orthospine from [facility] who states that the patient does not need to be transferred or urgent surgery needed. Recommended to admit the patient here for pain control and follow-up with him in the office or outpatient surgery once pain is stable. Hospital course: 07/14: White blood count 14.5. BNP normal. He describes low pelvic back pain radiating to the left knee. A small area of diminished sensation is subjectively present on the thigh. He says he has 12-15 steps at home and does not feel optimistic about regaining control of pain and mobilization without proceeding with surgery emergently. We discussed the indications for emergent spinal surgery which at this point he does not clearly have. He has no saddle symptoms. 07/15: Patient is still having increasing neuropathic pain and paresthesia left upper thigh in a enlarging area and also appear paresthesia of the right flank no weakness but patient is unable to ambulate more than a few feet due to severe pain. No bowel or bladder and no saddle paresthesia. Patient discussed with Orthopedic surgery on-call today reviewed the findings on MRI of the phone and patient findings and agree that there is still no emergent indication for surgery we will continue with efforts today started Decadron tizanidine scheduled Tylenol and gabapentin Review of systems: No fever or chills No chest pain shortness for breath No nausea vomiting diarrhea Physical exam: Elderly gentleman no acute distress HEENT unremarkable No labored respiration Moves both legs normally although with pain Assessment & Plan: Acute back pain/left-sided sciatica with disc fragment impinging on the left L2 nerve root. Per ortho spine rec. rest, pain control with IV pain medication oral pain medication. PT OT. Dr. Guzman, orthospine from [facility] reviewed his case details and imaging and felt that he does not need to be transferred or urgent surgery needed. Will need to follow-up with him in the office or outpatient surgery once pain is stable. Initiated steroid treatment as this was given initially on his 1st ED visit and was ineffective. DVT prophylaxis SCDs due to observational status. CODE STATUS full code. Disposition likely home in 1 to 2 days if pain is controlled 35 minutes were involved management this patient including [id number] evaluation discussion with the patient's review of findings discussion with Orthopedic surgery today Exam Vital Signs (past 8 hours): - 07/15/25 07:50 Oxygen Delivery Method Room Air Oxygen Delivery Method Room Air Oxygen Flow Rate 0 Objective Labs 07/14/25 04:31 07/14/25 04:31 [facility] Medical History (Updated 07/13/25 @ 18:21 by Enrique Gonzalez MD) Cervical strain Overactive bladder Secondhand smoke exposure Urine stream spraying Slow urinary stream Nocturia more than twice per night Feeling of incomplete bladder emptying Medicare annual wellness visit, initial Skin lesion Colon polyps Left knee pain Elevated PSA Erectile dysfunction Family history of prostate cancer in father Lower urinary tract symptoms (LUTS) BPH w urinary obs/LUTS Hx of fracture of leg Urinary frequency Enlarged prostate Surgical History History of hernia repair (~1999) History of knee surgery (~2013) Family History Father Cancer Mother History of heart disease Grandfather Lung cancer Grandmother History of heart disease Grandmother Stroke Social History marital status: household members: spouse and family occupational status: employed Smoking Status: Never smoker alcohol intake: current substance use type: does not use caffeine: No Assessment & Plan Time-Based Coding :: [TOTAL MINUTES] spent with patient and on the chart (including review of chart, obtaining history, exam, reviewing outside data, placing orders, documenting exam and treatment plan, and counseling patient) on [DATE].
[2025-07-15 15:05] VITALS: BP 124/76; PULSE 65; RESP 16; TEMP 36.6; O2SAT 96
[2025-07-15 20:00] VITALS: BP 106/72; PULSE 69; RESP 12; TEMP 36.9; O2SAT 97
--- NOTE | 2025-07-15 20:02 | PC.NURSE ---
Pain; Pt has had difficulty obtaining pain relief. Seen by Dr. Mayfield yesterday x2 and pain medications were adjusted. Pain meds were then adjusted over night. This am is still reporting pain. Pt is eating his meals flat in bed. He is unable to sit at this time. Pt goes to the bathroom and then back to bed, it is painful for him. This evening he reports his in better control and hopefully this new med regime will work. He is disappointed he has not progressed further. Dr. Wilder came to see pt x2 about the pain. Second time with his present. spoke with both for a long time. Pt also has new numbness to the lt hip area, anterior. Pain has started in the rt hip and mid back is numb. MD Wilder is aware of that as well.
[2025-07-15] MEDS: SODIUM CHLORIDE 0.9% FLUSH 10 ML IV (21:22)
[2025-07-16 02:00] VITALS: BP 141/89; PULSE 55; RESP 12; TEMP 36.2; O2SAT 97
[2025-07-16] MEDS: KETOROLAC 30 MG/ML VIAL IV ×2 (04:29→09:31)
[2025-07-16] MEDS: ACETAMINOPHEN 325 MG TABLET 650 MG PO ×4 (04:29→21:27)
[2025-07-16 07:55] VITALS: BP 156/86; PULSE 55; RESP 16; TEMP 36.8; O2SAT 98
[2025-07-16] MEDS: GABAPENTIN 100 MG CAPSULE PO ×3 (09:29→20:32)
[2025-07-16] MEDS: tiZANidine 4 MG TABLET 2 MG PO ×3 (09:30→20:32)
[2025-07-16] MEDS: SODIUM CHLORIDE 0.9% FLUSH 10 ML IV ×2 (09:32→20:32)
[2025-07-16 11:35] VITALS: BP 135/79; PULSE 60; RESP 17; TEMP 36.6; O2SAT 97
--- NOTE | 2025-07-16 11:41 | P.PN_ITS ---
Subjective Subjective Date Patient Seen: 07/16/25 Interval history: Chief complaint: Herniated disc with radiculopathy History of present illness: 07/13: 65-year-old male with past medical history of overreactive bladder, BPH and erectile dysfunction presents with back pain. Of note patient was seen in our ER yesterday due to similar complaints and was discharged home after CT imaging of the lumbar spine. The patient was deemed stable and was discharged home on oral pain medication. However the patient states that his back pain has worsened and unable to tolerate getting around at home. The patient brought himself back to the ER for further evaluation. Per the patient report the patient might have twisted his back wrong 2 days ago and since then he has been having these severe pain. The patient denies any saddle paresthesia or urinary or bowel incontinence. In addition the patient denies any fever, chills, nausea, vomiting, diarrhea, chest pain or shortness of breath. In the emergency room, the patient was hemodynamically stable. MRI of the lumbar spine however shows a free disc fragment behind the L2 vertebral body in the left lateral access. This disc fragment possibly impinges on the left L2 nerve root in the left lateral axis. There is also a fragment seen in the left foramen at L2-L3 impinging on the left L2 nerve root in the left foramen. These findings were discussed with Dr. Guzman, orthospine from [facility] who states that the patient does not need to be transferred or urgent surgery needed. Recommended to admit the patient here for pain control and follow-up with him in the office or outpatient surgery once pain is stable. Hospital course: 07/14: White blood count 14.5. BNP normal. He describes low pelvic back pain radiating to the left knee. A small area of diminished sensation is subjectively present on the thigh. He says he has 12-15 steps at home and does not feel optimistic about regaining control of pain and mobilization without proceeding with surgery emergently. We discussed the indications for emergent spinal surgery which at this point he does not clearly have. He has no saddle symptoms. 07/15: Patient is still having increasing neuropathic pain and paresthesia left upper thigh in a enlarging area and also appear paresthesia of the right flank no weakness but patient is unable to ambulate more than a few feet due to severe pain. No bowel or bladder and no saddle paresthesia. Patient discussed with Orthopedic surgery on-call today reviewed the findings on MRI of the phone and patient findings and agree that there is still no emergent indication for surgery we will continue with efforts today started Decadron tizanidine scheduled Tylenol and gabapentin 07/16: Severe pain still even sitting up a meal bed has increasing pain and has to lie back down feed himself in the lying position he can with 2 person assist to get up make it to the bathroom but followed by hours of excruciating pain afterward. No bowel or bladder or saddle paresthesia continuing Decadron tizanidine Tylenol gabapentin and opiate narcotics oral and IV Review of systems: No fever or chills No chest pain shortness for breath No nausea vomiting diarrhea Physical exam: Elderly gentleman no acute distress HEENT unremarkable No labored respiration Moves both legs normally although with pain Assessment & Plan: Acute back pain/left-sided sciatica with disc fragment impinging on the left L2 nerve root. * Patient debilitated unable to sit up in bed to eat meals without lying down with breaks * Per ortho spine rec. rest, pain control with IV pain medication oral pain medication. * PT OT. * Dr. Guzman, ortho spine from [facility] reviewed his case details and imaging and felt that he does not need to be transferred or urgent surgery needed. Will need to follow-up with him in the office or outpatient surgery once pain is stable. * Initiated steroid treatment Decadron 6 mg IV q.8 hours DVT prophylaxis * SCDs due to observational status. CODE STATUS * full code. Disposition * likely home in 1 to 2 days if pain is controlled 35 minutes were involved management this patient including [id number] evaluation discussion with the patient's review of findings discussion with Orthopedic surgery today Exam Vital Signs (past 8 hours): - 07/16/25 07:55 Temperature 98.3 F Pulse Rate 55 L Respiratory Rate 16 Blood Pressure 156/86 H Pulse Oximetry 98 Oxygen Flow Rate 0 Oxygen Delivery Method Room Air Oxygen Flow Rate 0 Objective Labs 07/14/25 04:31 07/14/25 04:31 [facility] Medical History (Updated 07/13/25 @ 18:21 by Enrique Gonzalez MD) Cervical strain Overactive bladder Secondhand smoke exposure Urine stream spraying Slow urinary stream Nocturia more than twice per night Feeling of incomplete bladder emptying Medicare annual wellness visit, initial Skin lesion Colon polyps Left knee pain Elevated PSA Erectile dysfunction Family history of prostate cancer in father Lower urinary tract symptoms (LUTS) BPH w urinary obs/LUTS Hx of fracture of leg Urinary frequency Enlarged prostate Surgical History History of hernia repair (~1999) History of knee surgery (~2013) Family History Father Cancer Mother History of heart disease Grandfather Lung cancer Grandmother History of heart disease Grandmother Stroke Social History marital status: household members: spouse and family occupational status: employed Smoking Status: Never smoker alcohol intake: current substance use type: does not use caffeine: No Assessment & Plan Time-Based Coding :: [TOTAL MINUTES] spent with patient and on the chart (including review of chart, obtaining history, exam, reviewing outside data, placing orders, documenting exam and treatment plan, and counseling patient) on [DATE].
--- NOTE | 2025-07-16 11:45 | CM.DPNOTE ---
DCP Note COORDINATOR OF HEALTH SERVICES reviewed EMR per provider in morning rounds, pt can barely sit up in bed due to pain. was attempting to transfer but no spine surgeon accepting. remains on IV pain medication. Per PT, treatment for today pending but likely to change rec from home with assistance to SNF. P: pending therapy recs and pt preference. may need SNF. will f/u with SNF preferences when rec known. Haylie Peacock, DEVON
--- NOTE | 2025-07-16 17:22 | PT.IPTN ---
Current Diagnoses Dorsalgia, unspecified (07/13/25) Physical Therapy Treatment Note M2 PT-IP Current Condition Start: 07/14/25 12:17 Freq: NEEDED Status: Active Protocol: Document 07/14/25 08:55 AB (Rec: 07/14/25 12:33 AB [id number]) Physical Therapy Current Condition Current Condition Evaluation Date 07/14/25 Treatment Diagnosis LBP; difficulty in walking Onset Date 07/13/25 M3 PT-IP Subjective Start: 07/14/25 12:17 Freq: NEEDED Status: Active Protocol: Document 07/16/25 17:22 DLM (Rec: 07/16/25 17:43 DLM Desktop) Subjective Physical Therapy Visit Type Type Treatment Note Visit Start Time 17:00 Visit Stop Time 17:22 Notes 22 min 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 He can not sit due to his pain increasing very quickly. He has been able to get up to the toilet but has to hurry to complete his toileting due to his pain. His pain is in his low back and left thigh. Supine is the only position where his pain decreases. Patient Goals He wants to be able to go home Therapy Pain Assessment Pain When Pain Assessed During Mobility Pain Present Pain Present Pain Reported Location left back and left leg Intensity 8 Scale Used Numeric (0 - 10) Description Aching,Crushing,Radiating,Sharp,Tender Pain Behaviors Guarding,Wincing Pain Management Modification of Treatment,Re-positioning,Timing of Techniques Activity with Medications M4 PT-IP Mobility and Gait Start: 07/14/25 12:17 Freq: NEEDED Status: Active Protocol: Document 07/16/25 17:22 DLM (Rec: 07/16/25 17:43 DLM Desktop) PT-Bed Mobility Assessment Rolling Type of Rolling Bilateral Level of Assist Independent Supine to Sit Supine to Sit Independent Sit to Supine Sit to Supine Independent Scooting Scooting to Edge of Independent Bed PT-Transfer Assessment Sit to and From Stand Sit to and from Standby Assistance,Use of Upper Extremities Stand Equipment Transfer Assistive Large Based Quad Cane Device Transfers Transfer Destination Chair Transfer Technique Stand Step Pivot Transfer Ability Level of Assist Standby Assistance,Use of Upper Extremities Comments Mobility Comments He demonstrates good use of log roll to get in/out of bed and to roll onto his side. He can lie on right side for short periods of time but not his left side. Pt up to recliner to determine if he can sit reclined and manage his pain but his pain quickly built to 8/10 and pt had to return to supine to manage his pain. He is also limited in how much time he can be in standing due to progressive increase in pain. He demonstrates safe use of the FWW to take steps for gait and transfers. Positional changes such as flexion or side leans do not improve his pain in standing nor sitting. Gait Assessment Gait Gait Assistance Standby Assistance Required: Assistive Devices Assistive Device Front Wheeled Walker Factors Limiting Gait Function Factors Limiting Decreased Activity Tolerance,Pain Gait Function Comments Gait Comments Pt using UE support on FWW to increase safety during gait. He declined to ambulate further than the chair this visit due to the severity of his pain with activity. Pt has been ambulating to and from the toilet today with nursing. Stair Climbing Assessment Comments Stair Climbing unable due to his pain Comments PT-Balance Assessment Sitting Balance and Reactions Static Sitting Normal Balance Ability Dynamic Sitting Normal Balance Ability Standing Balance and Reactions Static Standing Good Balance Ability Dynamic Standing Good Balance Ability Device Used FWW M5 PT-IP Objective Assessments Start: 07/14/25 12:17 Freq: NEEDED Status: Active Protocol: Document 07/14/25 08:55 AB (Rec: 07/14/25 12:33 AB [id number]) Orientation Orientation/Cognition Level of Alertness Alert Orientation Name,Situation Language Function No Deficits Noted Ability Safety Awareness Decreased Safety Awareness Memory Description No Deficits Noted Gross Range of Motion Lower Extremity ROM Assessment Within Functional Limits Strength Lower Extremity Strength Assessment Within Functional Limits Muscle Tone Muscle Tone WNL Yes M6 PT-IP Treatment Start: 07/14/25 12:17 Freq: NEEDED Status: Active Protocol: Document 07/16/25 17:22 DLM (Rec: 07/16/25 17:43 DLM Desktop) Physical Therapy Treatment Education Education Provided Safety Other Treatments Other Treatment discussed discharging planning with pt and that he is Performed not safe to discharge home if he can not ambulate nor do stairs, pt would not tolerate sitting in the car to ride home even with the seat reclined M7 PT-IP Assessment and Plan Start: 07/14/25 12:17 Freq: NEEDED Status: Active Protocol: Document 07/16/25 17:22 DLM (Rec: 07/16/25 17:43 DLM Desktop) PT Summary Assessment and Plan Summary Impairments Pain,Transfers,Gait,Activity Tolerance Progress Towards Slow Progress due to Pain Goals Assessment Summary [place]ar reports his back and left LE pain is not improving . He demonstrates a good understanding of current techniques to manage his pain that is allowing him to use the toilet with nursing. He continues to be able to be unable to sit functionally or ambulate household distances. He has a long flight of stairs to get into his house which he can not currently do. I do not feel discharging home is a safe plan at this time and will only cause a readmission. Pt could go to SNF rehab at discharge but will need to transport by stretcher since he can not sit in a car nor wheelchair at this time. Goals Bed Mobility Goal Independent Transfer Goal Independent,Front Wheeled Walker Gait Goal Independent,Front Wheel Walker Gait Distance 100 Other Goals improve ambulation using FWW ~ 150 ft mod I up/down 10 steps using L rail ascending SBA Days to Meet Goals 10 Frequency of Treatment Frequency Of Once a Day Treatment Treatment Plan Physical Therapy Gait Training,Therapeutic Exercise,Discharge Planning, Treatment Plan Hot or Cold Pack,Neuromuscular Re-ed,Manual Therapy Other pain management for his back and left LE pain Recommendations and Next Treatment Focus Precautions Lumbar Precautions Log Roll,No Twisting,Limit Bending,Lifting Restriction of 10 lbs Other Precautions back and left LE radicular pain Recommendations To Nursing Amount of Assist Standby Assistance Needed Discharge Recommendations PT Discharge Home vs SNF Recommendations Other Discharge Not safe to go home if he can not ambulate nor do Recommendations stairs Transportation Needs Stretcher/Ambulance at Discharge - PT assist 1
[2025-07-16 18:00] VITALS: PULSE 61; RESP 16; O2SAT 97
[2025-07-16 20:00] VITALS: BP 119/69; PULSE 74; RESP 16; TEMP 36.6; O2SAT 98
[2025-07-17 03:38] VITALS: BP 134/81; PULSE 53; RESP 16; TEMP 36.4; O2SAT 98
[2025-07-17] MEDS: ACETAMINOPHEN 325 MG TABLET 650 MG PO ×4 (03:42→20:55)
[2025-07-17 05:52] VITALS: BP 141/83; PULSE 54; RESP 16; O2SAT 94
[2025-07-17] MEDS: GABAPENTIN 100 MG CAPSULE PO ×3 (09:56→21:13)
[2025-07-17] MEDS: tiZANidine 4 MG TABLET 2 MG PO ×3 (09:57→21:13)
[2025-07-17] MEDS: SODIUM CHLORIDE 0.9% FLUSH 10 ML IV ×3 (12:37→21:16)
[2025-07-17 14:15] VITALS: BP 141/75; PULSE 58; RESP 16; TEMP 36.9; O2SAT 95
--- NOTE | 2025-07-17 14:25 | CM.DPC ---
DCP Cont. Reviewed EMR and team rounds for pt's medical status and updates. Per Hospitalist, pt will likely need another 1-2 days before being medically cleared for home d/c. Monitoring for final d/c needs.
--- NOTE | 2025-07-17 14:54 | P.PN_ITS ---
Subjective Subjective Date Patient Seen: 07/17/25 Interval history: Chief complaint: Herniated disc with radiculopathy History of present illness: 07/13: 65-year-old male with past medical history of overreactive bladder, BPH and erectile dysfunction presents with back pain. Of note patient was seen in our ER yesterday due to similar complaints and was discharged home after CT imaging of the lumbar spine. The patient was deemed stable and was discharged home on oral pain medication. However the patient states that his back pain has worsened and unable to tolerate getting around at home. The patient brought himself back to the ER for further evaluation. Per the patient report the patient might have twisted his back wrong 2 days ago and since then he has been having these severe pain. The patient denies any saddle paresthesia or urinary or bowel incontinence. In addition the patient denies any fever, chills, nausea, vomiting, diarrhea, chest pain or shortness of breath. In the emergency room, the patient was hemodynamically stable. MRI of the lumbar spine however shows a free disc fragment behind the L2 vertebral body in the left lateral access. This disc fragment possibly impinges on the left L2 nerve root in the left lateral axis. There is also a fragment seen in the left foramen at L2-L3 impinging on the left L2 nerve root in the left foramen. These findings were discussed with Dr. Guzman, orthospine from [facility] who states that the patient does not need to be transferred or urgent surgery needed. Recommended to admit the patient here for pain control and follow-up with him in the office or outpatient surgery once pain is stable. Hospital course: 07/14: White blood count 14.5. BNP normal. He describes low pelvic back pain radiating to the left knee. A small area of diminished sensation is subjectively present on the thigh. He says he has 12-15 steps at home and does not feel optimistic about regaining control of pain and mobilization without proceeding with surgery emergently. We discussed the indications for emergent spinal surgery which at this point he does not clearly have. He has no saddle symptoms. 07/15: Patient is still having increasing neuropathic pain and paresthesia left upper thigh in a enlarging area and also appear paresthesia of the right flank no weakness but patient is unable to ambulate more than a few feet due to severe pain. No bowel or bladder and no saddle paresthesia. Patient discussed with Orthopedic surgery on-call today reviewed the findings on MRI of the phone and patient findings and agree that there is still no emergent indication for surgery we will continue with efforts today started Decadron tizanidine scheduled Tylenol and gabapentin 07/16: Severe pain still even sitting up a meal bed has increasing pain and has to lie back down feed himself in the lying position he can with 2 person assist to get up make it to the bathroom but followed by hours of excruciating pain afterward. No bowel or bladder or saddle paresthesia continuing Decadron tizanidine Tylenol gabapentin and opiate narcotics oral and IV 07/17: No significant improvement in symptoms despite being on Decadron and on pain control still currently set up for about 5 minutes. Transfer center were consulted for possible transfer for surgical evaluation by spine Center due to patient's persistent and debilitating symptoms Review of systems: No fever or chills No chest pain shortness for breath No nausea vomiting diarrhea Physical exam: Elderly gentleman no acute distress HEENT unremarkable No labored respiration Moves both legs normally although with pain Assessment & Plan: Acute back pain/left-sided sciatica with disc fragment impinging on the left L2 nerve root. * Patient debilitated unable to sit up in bed to eat meals without lying down with breaks * Per ortho spine rec. rest, pain control with IV pain medication oral pain medication. * PT OT. * Dr. Guzman, ortho spine from [facility] reviewed his case details and imaging and felt that he does not need to be transferred or urgent surgery needed. Will need to follow-up with him in the office or outpatient surgery once pain is stable. * Initiated steroid treatment Decadron 6 mg IV q.8 hours DVT prophylaxis * SCDs due to observational status. CODE STATUS * full code. Disposition * Relatively transfer centers called for possible evaluation and surgical treatment in this patient that is completely debilitated unable to even sit up for more than 5 minutes * Alternatively correction placement with bed rest until can be seen outpatient and then may have to be transferred by ambulance for evaluation in orthopedic office 35 minutes were involved management this patient including [id number] evaluation discussion with the patient's review of findings discussion with Orthopedic surgery today Exam Vital Signs (past 8 hours): - 07/17/25 08:00 Oxygen Delivery Method Room Air Oxygen Delivery Method Room Air Oxygen Flow Rate 0 Objective Labs 07/14/25 04:31 07/14/25 04:31 PFS Medical History (Updated 07/13/25 @ 18:21 by Enrique Gonzalez MD) Cervical strain Overactive bladder Secondhand smoke exposure Urine stream spraying Slow urinary stream Nocturia more than twice per night Feeling of incomplete bladder emptying Medicare annual wellness visit, initial Skin lesion Colon polyps Left knee pain Elevated PSA Erectile dysfunction Family history of prostate cancer in father Lower urinary tract symptoms (LUTS) BPH w urinary obs/LUTS Hx of fracture of leg Urinary frequency Enlarged prostate Surgical History History of hernia repair (~1999) History of knee surgery (~2013) Family History Father Cancer Mother History of heart disease Grandfather Lung cancer Grandmother History of heart disease Grandmother Stroke Social History marital status: household members: spouse and family occupational status: employed Smoking Status: Never smoker alcohol intake: current substance use type: does not use caffeine: No Assessment & Plan Time-Based Coding :: [TOTAL MINUTES] spent with patient and on the chart (including review of chart, obtaining history, exam, reviewing outside data, placing orders, documenting exam and treatment plan, and counseling patient) on [DATE].
[2025-07-17 18:20] VITALS: BP 127/76; PULSE 64; RESP 15; TEMP 36.8; O2SAT 95
[2025-07-17 21:21] VITALS: BP 103/67; PULSE 67; RESP 18; TEMP 36.2; O2SAT 97
[2025-07-18] MEDS: ACETAMINOPHEN 325 MG TABLET 650 MG PO ×2 (04:31→10:25)
[2025-07-18 04:43] VITALS: BP 138/71; PULSE 57; RESP 18; TEMP 36.6; O2SAT 97
[2025-07-18] MEDS: GABAPENTIN 100 MG CAPSULE PO (08:29)
[2025-07-18] MEDS: SODIUM CHLORIDE 0.9% FLUSH 10 ML IV (08:30)
[2025-07-18] MEDS: tiZANidine 4 MG TABLET 2 MG PO (08:30)
--- NOTE | 2025-07-18 09:17 | DI.RAD.S_ITS ---
PROCEDURE: XR LUMBAR SPINE 2-3V INDICATIONS: Herniated disc TECHNIQUE: 3 views of the lumbar spine were acquired. COMPARISON: None. FINDINGS: Bones: 5 [id number] vertebrae are present. There is normal bony alignment. No vertebral body compression fractures. No suspicious bony lesions. Soft tissues: Overlying bowel gas pattern is normal. No suspicious soft tissue calcifications. IMPRESSION: No acute bony abnormality. Dictated by: Sana Nichole M.D. on 07/18/2025 at 11:51 Approved by: Sana Nichole M.D. on 07/18/2025 at 11:51
--- NOTE | 2025-07-18 09:28 | P.DS_ITS ---
History of Present Illness History of Present Illness Date Patient Seen: 07/18/25 Chief complaint: Herniated disc annular tear radicular compression Narrative: Chief complaint: Herniated disc with radiculopathy History of present illness: 07/13: 65-year-old male with past medical history of overreactive bladder, BPH and erectile dysfunction presents with back pain. Of note patient was seen in our ER yesterday due to similar complaints and was discharged home after CT imaging of the lumbar spine. The patient was deemed stable and was discharged home on oral pain medication. However the patient states that his back pain has worsened and unable to tolerate getting around at home. The patient brought himself back to the ER for further evaluation. Per the patient report the patient might have twisted his back wrong 2 days ago and since then he has been having these severe pain. The patient denies any saddle paresthesia or urinary or bowel incontinence. In addition the patient denies any fever, chills, nausea, vomiting, diarrhea, chest pain or shortness of breath. In the emergency room, the patient was hemodynamically stable. MRI of the lumbar spine however shows a free disc fragment behind the L2 vertebral body in the left lateral access. This disc fragment possibly impinges on the left L2 nerve root in the left lateral axis. There is also a fragment seen in the left foramen at L2-L3 impinging on the left L2 nerve root in the left foramen. These findings were discussed with Dr. Guzman orthospine from [facility] who states that the patient does not need to be transferred or urgent surgery needed. Recommended to admit the patient here for pain control and follow-up with him in the office or outpatient surgery once pain is stable. Hospital course: 07/14: White blood count 14.5. BNP normal. He describes low pelvic back pain radiating to the left knee. A small area of diminished sensation is subjectively present on the thigh. He says he has 12-15 steps at home and does not feel optimistic about regaining control of pain and mobilization without proceeding with surgery emergently. We discussed the indications for emergent spinal surgery which at this point he does not clearly have. He has no saddle symptoms. 07/15: Patient is still having increasing neuropathic pain and paresthesia left upper thigh in a enlarging area and also appear paresthesia of the right flank no weakness but patient is unable to ambulate more than a few feet due to severe pain. No bowel or bladder and no saddle paresthesia. Patient discussed with Orthopedic surgery on-call today reviewed the findings on MRI of the phone and patient findings and agree that there is still no emergent indication for surgery we will continue with efforts today started Decadron tizanidine scheduled Tylenol and gabapentin 07/16: Severe pain still even sitting up a meal bed has increasing pain and has to lie back down feed himself in the lying position he can with 2 person assist to get up make it to the bathroom but followed by hours of excruciating pain afterward. No bowel or bladder or saddle paresthesia continuing Decadron tizanidine Tylenol gabapentin and opiate narcotics oral and IV 07/17: No significant improvement in symptoms despite being on Decadron and on pain control still currently set up for about 5 minutes. Transfer center were consulted for possible transfer for surgical evaluation by spine Center due to patient's persistent and debilitating symptoms 07/18: Patient accepted by neurosurgeon Dr. Villegas at [facility] stat lumbar views in standing position obtained and patient transported Review of systems: No fever or chills No chest pain shortness for breath No nausea vomiting diarrhea Physical exam: Elderly gentleman no acute distress HEENT unremarkable No labored respiration Moves both legs normally although with pain Assessment & Plan: Acute back pain/left-sided sciatica with disc fragment impinging on the left L2 nerve root. * Patient debilitated unable to sit up in bed to eat meals without lying down with breaks * Per ortho spine rec. rest, pain control with IV pain medication oral pain medication. * PT OT. * Dr. Guzman, ortho spine from [facility] reviewed his case details and imaging and felt that he does not need to be transferred or urgent surgery needed. Will need to follow-up with him in the office or outpatient surgery once pain is stable. * Initiated steroid treatment Decadron 6 mg IV q.8 hours DVT prophylaxis * SCDs due to observational status. CODE STATUS * full code. Disposition * Transferred to [facility] Dr. Villegas 35 minutes were involved management this patient including [id number] evaluation discussion with the patient's review of findings discussion with Orthopedic surgery today Discharge Providers Provider Date of admission: 07/15/25 10:52 Discharge Date: 07/18/25 Primary care physician: Brendan Calhoun DO Consults: 07/13/25 18:22 Consult to Occupational Therapy Evaluate & Treat Comment: Physician Instructions: Evaluate and treat Consult to Physical Therapy Evaluate & Treat Comment: Physician Instructions: Evaluate and Treat 07/14/25 18:24 Consult to Pharmacy Routine Comment: Assessed as high risk 07/15/25 09:59 Consult to Pharmacy Routine Comment: assessed as high risk Discharge provider: Ko White MD Exam Vital Signs (past 8 hours): - 07/18/25 04:43 Temperature 97.8 F Pulse Rate 57 L Respiratory Rate 18 Blood Pressure 138/71 Pulse Oximetry 97 Oxygen Flow Rate 0 Oxygen Delivery Method Room Air Oxygen Flow Rate 0 Objective Labs 07/14/25 04:31 07/14/25 04:31 [facility] Medical History (Updated 07/13/25 @ 18:21 by Enrique Gonzalez MD) Cervical strain Overactive bladder Secondhand smoke exposure Urine stream spraying Slow urinary stream Nocturia more than twice per night Feeling of incomplete bladder emptying Medicare annual wellness visit, initial Skin lesion Colon polyps Left knee pain Elevated PSA Erectile dysfunction Family history of prostate cancer in father Lower urinary tract symptoms (LUTS) BPH w urinary obs/LUTS Hx of fracture of leg Urinary frequency Enlarged prostate Surgical History History of hernia repair (~1999) History of knee surgery (~2013) Family History Father Cancer Mother History of heart disease Grandfather Lung cancer Grandmother History of heart disease Grandmother Stroke Social History marital status: household members: spouse and family occupational status: employed Smoking Status: Never smoker alcohol intake: current substance use type: does not use caffeine: No Discharge Plan Discharge Plan [facility] Other facility: [facility] Discharge Data Primary Care Provider: Brendan Calhoun
--- NOTE | 2025-07-18 11:50 | CM.DPC ---
DCP Cont. Reviewed EMR and team rounds for pt's medical status and updates. Plan is for pt to transfer out today to [facility] for spinal surgery. He will be paying for this transport privately. No further CM d/c needs identified needs at this time.
[2025-07-18 12:20] VITALS: BP 141/77; PULSE 58; RESP 18; TEMP 36.6; O2SAT 98
--- NOTE | 2025-07-18 13:10 | PC.NURSE ---
Report called to Nurse José at [facility] [address]74, ext [phone]. Patient was medicated with oxycodone prior to tow picker. IV to right hand intact flushing without problem. Patient using urinal independently, denies urinary complaints. Home medications returned by pharmacy to to take home with his belongings. Patient was picked up by [facility] for transport, paperwork packet sent.
== END 2025-07-18 12:30 | disposition short-term general hospital (02) | DRG 552 ==
LOC: ED 18:21 → AC 18:36
PROVIDERS: Admitting Provider Family Medicine; Emergency Provider Emergency Medicine; Family Provider Family Medicine; PCP Family Medicine; Referring Provider Emergency Medicine; Visit Provider Family Medicine
DX: M51.16 Intervertebral disc disorders with radiculopathy, lumbar region (principal); M51.362 Other intervertebral disc degeneration, lumbar region with discogenic back pain and lower extremity pain
CPT/HCPCS: 36415; 72100; 72131; 72148; 80053; 81003; 82962; 85025; 96374; 96375; 96376; 97116; 97162; 97165; 97530; 99284; G0378; J1100; J1650; J1885; J2272; J2405; J2919

== ENCOUNTER 2025-08-15 05:57 | Emergency (ER) | payer MEDICARE, OTHER, SELFPAY ==
[2025-08-15] VITALS (9 sets, daily range): BP systolic 112–176; BP diastolic 59–86; PULSE 73–85; RESP 14–16; TEMP 36.6; O2SAT 95–97; BMI 23.7
--- NOTE | 2025-08-15 06:08 | ED_ITS ---
HPI - Male Genitourinary <Lucretia Degroot DO - Last Filed: 08/19/25 08:15> General Chief complaint: Urogenital-Male Stated complaint: Urinary Symptoms, 3wks Back post op Time Seen by Provider: 08/15/25 06:08 History of Present Illness HPI Narrative: Patient is a healthy 65-year-old male with history of Aquablation and recent L2- L3 laminectomy diskectomy 07/20/2025 now presenting with acute urinary retention. He reports who is with in his normal state of health last night he urinated fully around 7:00 p.m.. However he has been up multiple times throughout the night with frequent urination. Necessarily having any dysuria. No fever or chills. He reports also having an ongoing headache over the week which is unusual. He has only taken ibuprofen for it last dose was 7:00 p.m.. No nausea or vomiting. Related Data Home Medications ?Medication ?Instructions ?Recorded ?Confirmed methocarbamol 750 mg tablet 750 mg PO QID 07/21/2501/10 sennosides 8.6 mg tablet (Natural 17.2 mg PO BID 07/2107/21/25 Senna Laxative) Previous Rx's ?Medication ?Instructions ?Recorded qjlqinlaep-brsbkvprircme-hyjfsmtz 1 cap PO Q6H PRN rosey n #10 caps 08/15/25 50 mg-300 mg-40 mg capsule (Fioricet) Allergies Allergy/AdvReac Type Severity Reaction Status Date / Time No Known Drug Allergies Allergy Verified 08/15/25 06:07 Patient History <Lucretia Degroot DO - Last Filed: 08/19/25 08:15> Medical History Cervical strain Overactive bladder Secondhand smoke exposure Urine stream spraying Slow urinary stream Nocturia more than twice per night Feeling of incomplete bladder emptying Medicare annual wellness visit, initial Skin lesion Colon polyps Left knee pain Elevated PSA Erectile dysfunction Family history of prostate cancer in father Lower urinary tract symptoms (LUTS) BPH w urinary obs/LUTS Hx of fracture of leg Urinary frequency Enlarged prostate Surgical History History of hernia repair (~1999) History of knee surgery (~2013) Family History Father Cancer Mother History of heart disease Grandfather Lung cancer Grandmother History of heart disease Grandmother Stroke Social History marital status: household members: spouse and family occupational status: employed alcohol intake: current substance use type: does not use caffeine: No alcohol intake frequency: holidays/special occasions only Exam <Lucretia Degroot DO - Last Filed: 08/19/25 08:15> Initial Vital Signs Initial Vital Signs: Vital Signs Pulse Rate 85 08/15/25 06:02 Respiratory Rate 15 08/15/25 06:02 Blood Pressure 176/86 H 08/15/25 06:02 Pulse Oximetry 95 08/15/25 06:02 GENERAL: Alert 65-year-old male appears uncomfortable and in pain and in [no acute] distress. HEENT: Head atraumatic,EOMI, pupils reactive, face symmetric, [moist] mucous membranes CARDIOVASCULAR: Regular rate and rhythm without murmurs, rubs or gallops. RESPIRATORY: Breath sounds equal bilaterally, no wheezes rales or rhonchi. ABDOMEN: Soft, tender suprapubic region with palpable bladder \BACK: EXTREMITIES: Normal range of motion, no clubbing or edema. Neurovascularly intact NEUROLOGICAL: Alert and oriented x4.Normal gait and speech. Cranial nerves II through XII grossly intact. SKIN: Warm, dry, no laceration, no petechiae, no rashes or lesions. <Lindsey Bonilla DO - Last Filed: 08/15/25 15:32> Initial Vital Signs Initial Vital Signs: Vital Signs Pulse Rate 85 08/15/25 06:02 Respiratory Rate 15 08/15/25 06:02 Blood Pressure 176/86 H 08/15/25 06:02 Pulse Oximetry 95 08/15/25 06:02 Course <Lucretia Degroot DO - Last Filed: 08/19/25 08:15> Orders Ordered: Discontinued Medications Acetaminophen/Butalbital/Caffeine (Butalb/Apap/Caffeine 50/325/40 Tablet) 1 each PO NOW ONE Stop: 08/15/25 11:46 Last Admin: 08/15/25 11:55 Dose: 1 each Documented By: HERMINIA Hydromorphone HCl (Hydromorphone Hcl 0.5 Mg/0.5 Ml Syringe) 0.5 mg IV NOW ONE Stop: 08/15/25 06:40 Last Admin: 08/15/25 06:48 Dose: 0.5 mg Documented By: JUANJO Ketorolac Tromethamine (Ketorolac 30 Mg/Ml Vial) 15 mg IV NOW ONE Stop: 08/15/25 09:38 Last Admin: 08/15/25 10:38 Dose: 15 mg Documented By: EB Levofloxacin (Levofloxacin 250 Mg Tablet) 500 mg PO NOW ONE Stop: 08/15/25 08:08 Last Admin: 08/15/25 08:12 Dose: 500 mg Documented By: HERMINIA Lidocaine HCl (Lidocaine 2% (Glydo) 6 Ml Gel) 6 ml TOP NOW ONE Stop: 08/15/25 06:11 Vital Signs Vital signs: Vital Signs - 8 hr 08/15/25 11:00 08/15/25 11:01 08/15/25 11:01 Pulse Rate 74 73 Respiratory Rate 14 Blood Pressure 112/59 L 112/59 L Pulse Oximetry 97 96 08/15/25 11:13 08/15/25 11:30 08/15/25 12:00 Pulse Rate Respiratory Rate Blood Pressure 112/66 123/67 Pulse Oximetry 96 08/15/25 12:30 08/15/25 13:00 Pulse Rate Respiratory Rate Blood Pressure 112/64 114/68 Pulse Oximetry <Lindsey Bonilla, - Last Filed: 08/15/25 15:32> Orders Ordered: Discontinued Medications Acetaminophen/Butalbital/Caffeine (Butalb/Apap/Caffeine 50/325/40 Tablet) 1 each PO NOW ONE Stop: 08/15/25 11:46 Last Admin: 08/15/25 11:55 Dose: 1 each Documented By: HERMINIA Hydromorphone HCl (Hydromorphone Hcl 0.5 Mg/0.5 Ml Syringe) 0.5 mg IV NOW ONE Stop: 08/15/25 06:40 Last Admin: 08/15/25 06:48 Dose: 0.5 mg Documented By: JUANJO Ketorolac Tromethamine (Ketorolac 30 Mg/Ml Vial) 15 mg IV NOW ONE Stop: 08/15/25 09:38 Last Admin: 08/15/25 10:38 Dose: 15 mg Documented By: EB Levofloxacin (Levofloxacin 250 Mg Tablet) 500 mg PO NOW ONE Stop: 08/15/25 08:08 Last Admin: 08/15/25 08:12 Dose: 500 mg Documented By: EB Lidocaine HCl (Lidocaine 2% (Glydo) 6 Ml Gel) 6 ml TOP NOW ONE Stop: 08/15/25 06:11 Vital Signs Vital signs: Vital Signs - 8 hr 08/15/25 11:00 08/15/25 11:01 08/15/25 11:01 Pulse Rate 74 73 Respiratory Rate 14 Blood Pressure 112/59 L 112/59 L Pulse Oximetry 97 96 08/15/25 11:13 08/15/25 11:30 08/15/25 12:00 Pulse Rate Respiratory Rate Blood Pressure 112/66 123/67 Pulse Oximetry 96 08/15/25 12:30 08/15/25 13:00 Pulse Rate Respiratory Rate Blood Pressure 112/64 114/68 Pulse Oximetry MDM - Male Genitourinary <Lucretia Degroot DO - Last Filed: 08/19/25 08:15> Lab Data 08/15/25 06:45 08/15/25 06:45 Labs: Lab Results 08/15/25 Range/Units 06:45 WBC 11.4 H (4.5-11.0) X10^3/uL RBC 4.56 (4.5-5.9) X10^6/uL Hgb 14.3 (13.5-17.5) g/dL Hct 40.1 L (41-53) % MCV 87.9 (80-100) fL MCH 31.3 (26-34) PG MCHC 35.6 (30-36) % RDW 13.9 (11.6-14.8) % Plt Count 193 (150-400) X10^3/uL Neut % (Auto) 77.4 H (50-75) % Lymph % (Auto) 8.5 L (25-40) % [place] % (Auto) 12.6 (3-14) % Eos % (Auto) 1.1 L (2-4) % Baso % (Auto) 0.4 (0-2) % Neut # (Auto) 8900 H (4108-2903) /uL Lymph # (Auto) 1000 L (4041-0950) /uL [place] # (Auto) 1400 H (0-900) /uL Eos # (Auto) 100 (0-450) /uL Baso # (Auto) 100 (0-100) /uL Sodium 134 L (137-145) mmol/L Potassium 3.7 (3.4-5.1) mmol/L Chloride 102 (98-107) mmol/L Carbon Dioxide 23 (22-32) mmol/L BUN 12 (9-20) mg/dL Creatinine 0.84 (0.66-1.25) mg/dL Estimated GFR > 60 (>60) mL/min BUN/Creatinine Ratio 14.3 (6-22) Glucose 109 H (70-99) mg/dL Calcium 8.6 (8.4-10.2) mg/dL Total Bilirubin 0.7 (0.2-1.3) mg/dL AST 30 (17-59) IU/L ALT 30 (<50) IU/L Alkaline Phosphatase 85 (38-126) U/L Total Protein 6.7 (6.3-8.2) g/dL Albumin 3.8 (3.5-5.0) g/dL Globulin 2.9 (1.7-4.1) g/dL Albumin/Globulin Ratio 1.3 (1.0-2.8) Urine Dip Bedside Urine Glucose Negative Bedside Urine Bilirubin - Negative Bedside Urine Ketone - Negative Urine Specific [place] 1.020 Bedside Urine Occult Blood - Negative Bedside Urine pH 6.5 Bedside Urine Protein - Negative Bedside Urine Urobilinogen - Negative Bedside Urine Nitrite - Negative Bedside Urine Leukocytes - Negative Esterase MDM Narrative Medical decision making narrative: Patient 65-year-old male history of Aquablation over a year ago now presenting with acute urinary retention. Difficult time placing Kidd catheter multiple nurses have tried. 0630 Dr. Hooks, urology updated on difficult catheter placement we will come in to see patient 08/15/25 Dr. Bonilla: Patient signed out to myself by Dr. Degroot. Patient is seen and evaluated by myself. Labs show white count 11.4 was 14 on July 14, hemoglobin is 14.3 with a platelets of 193 predominance of neutrophils. Chemistries shows sodium 134 otherwise normal electrolytes BUN creatinine glucose of 109 LFTs are negative. Point of care urine was negative patient was able to give a very tiny sample earlier in the morning. MR lumbar spine with and without contrast was ordered by overnight provider patient has not had any increase in back pain only new changes urinary retention. MR L-spine with and without shows interval posterior laminectomy at L2 with removal of free disc fragment which has been seen by in the L2 lateral recess as well as disc fragment of left foramen. No recurrent residual disc protrusion or extrusion noted. Postoperative has been L2 left nerve root consistent with a left L2 radiculitis. 0730: Dr. Gillespie from Urology in the department as patient was unable to urinate multiple attempts at placing a catheter were unsuccessful. He plans to dilate patient urethra in department. Dr. Gillespie dilated patients urethra and placed kidd catheter. We will have patient follow up in the next week in the office. He asked for a single dose of Levaquin 500 mg here in the department. Patient seen and evaluated by myself. Patient notes he has been healing very well postsurgically states he has not been having any new issues other than he has has a headache for the past 10 days and then developed urinary retention overnight. Patient states he did have an aquablation in his prostate and had persistent nocturia but was otherwise doing well. Patient feels much better after having his urethra dilated was found to have a stricture by the urologist and had his bladder drained. Urine did not appear infected he was given a single dose of Levaquin. We discussed obtaining an MR L-spine as patient is only about 3 weeks postoperative he does not have any other new red flag symptoms has not appreciate any changes consistent with infection, he has not had any decreased difficulty with the movement, no new sensation changes no paresthesias. No weakness no saddle anesthesia reported he does note a headache that has been persistent for 10 days. [address] Harish Martinez spinal surgery at, [facility]. He performed patient's surgery. Reviewed his findings workup from today he reviewed his MRI discussed he has had persistent headache for the past 24 hours. [place] appropriate for discharge but we will have him lay flat for 24 hours they are going to follow up with the patient to follow up for potential dural leak. Reviewed patient's MR findings as well. Also reviewed patient's new urologic changes but discussed he also had to have urethral dilation. Spoke with the patient he feels comfortable returning home, his spinal surgeon is going to reach out in the next 24 hours to set up follow up to evaluate for potential dural leak. It is covered can take prescription medications discussed return precautions. He is also reached out to Dr. Gillespie office already to set up follow up all questions answered. <Lindsey Bonilla, DO - Last Filed: 08/15/25 15:32> Lab Data Labs: Lab Results 08/15/25 Range/Units 06:45 WBC 11.4 H (4.5-11.0) X10^3/uL RBC 4.56 (4.5-5.9) X10^6/uL Hgb 14.3 (13.5-17.5) g/dL Hct 40.1 L (41-53) % MCV 87.9 (80-100) fL MCH 31.3 (26-34) PG MCHC 35.6 (30-36) % RDW 13.9 (11.6-14.8) % Plt Count 193 (150-400) X10^3/uL Neut % (Auto) 77.4 H (50-75) % Lymph % (Auto) 8.5 L (25-40) % [place] % (Auto) 12.6 (3-14) % Eos % (Auto) 1.1 L (2-4) % Baso % (Auto) 0.4 (0-2) % Neut # (Auto) 8900 H (5286-9212) /uL Lymph # (Auto) 1000 L (5740-5023) /uL [place] # (Auto) 1400 H (0-900) /uL Eos # (Auto) 100 (0-450) /uL Baso # (Auto) 100 (0-100) /uL Sodium 134 L (137-145) mmol/L Potassium 3.7 (3.4-5.1) mmol/L Chloride 102 (98-107) mmol/L Carbon Dioxide 23 (22-32) mmol/L BUN 12 (9-20) mg/dL Creatinine 0.84 (0.66-1.25) mg/dL Estimated GFR > 60 (>60) mL/min BUN/Creatinine Ratio 14.3 (6-22) Glucose 109 H (70-99) mg/dL Calcium 8.6 (8.4-10.2) mg/dL Total Bilirubin 0.7 (0.2-1.3) mg/dL AST 30 (17-59) IU/L ALT 30 (<50) IU/L Alkaline Phosphatase 85 (38-126) U/L Total Protein 6.7 (6.3-8.2) g/dL Albumin 3.8 (3.5-5.0) g/dL Globulin 2.9 (1.7-4.1) g/dL Albumin/Globulin Ratio 1.3 (1.0-2.8) Urine Dip Bedside Urine Glucose Negative Bedside Urine Bilirubin - Negative Bedside Urine Ketone - Negative Urine Specific [place] 1.020 Bedside Urine Occult Blood - Negative Bedside Urine pH 6.5 Bedside Urine Protein - Negative Bedside Urine Urobilinogen - Negative Bedside Urine Nitrite - Negative Bedside Urine Leukocytes - Negative Esterase MDM Narrative Medical decision making narrative: 08/15/25 Dr. Bonilla: Patient signed out to myself by Dr. Degroot. Patient is seen and evaluated by myself. Labs show white count 11.4 was 14 on July 14, hemoglobin is 14.3 with a platelets of 193 predominance of neutrophils. Chemistries shows sodium 134 otherwise normal electrolytes BUN creatinine glucose of 109 LFTs are negative. Point of care urine was negative patient was able to give a very tiny sample earlier in the morning. MR lumbar spine with and without contrast was ordered by overnight provider patient has not had any increase in back pain only new changes urinary retention. MR L-spine with and without shows interval posterior laminectomy at L2 with removal of free disc fragment which has been seen by in the L2 lateral recess as well as disc fragment of left foramen. No recurrent residual disc protrusion or extrusion noted. Postoperative has been L2 left nerve root consistent with a left L2 radiculitis. 0730: Dr. Gillespie from Urology in the department as patient was unable to urinate multiple attempts at placing a catheter were unsuccessful. He plans to dilate patient urethra in department. Dr. Gillespie dilated patients urethra and placed kidd catheter. We will have patient follow up in the next week in the office. He asked for a single dose of Levaquin 500 mg here in the department. Patient seen and evaluated by myself. Patient notes he has been healing very well postsurgically states he has not been having any new issues other than he has has a headache for the past 10 days and then developed urinary retention overnight. Patient states he did have an aquablation in his prostate and had persistent nocturia but was otherwise doing well. Patient feels much better after having his urethra dilated was found to have a stricture by the urologist and had his bladder drained. Urine did not appear infected he was given a single dose of Levaquin. We discussed obtaining an MR L-spine as patient is only about 3 weeks postoperative he does not have any other new red flag symptoms has not appreciate any changes consistent with infection, he has not had any decreased difficulty with the movement, no new sensation changes no paresthesias. No weakness no saddle anesthesia reported he does note a headache that has been persistent for 10 days. [address] Harish Martinez spinal surgery at, [facility]. He performed patient's surgery. Reviewed his findings workup from today he reviewed his MRI discussed he has had persistent headache for the past 24 hours. [place] appropriate for discharge but we will have him lay flat for 24 hours they are going to follow up with the patient to follow up for potential dural leak. Reviewed patient's MR findings as well. Also reviewed patient's new urologic changes but discussed he also had to have urethral dilation. Spoke with the patient he feels comfortable returning home, his spinal surgeon is going to reach out in the next 24 hours to set up follow up to evaluate for potential dural leak. It is covered can take prescription medications discussed return precautions. He is also reached out to Dr. Gillespie office already to set up follow up all questions answered. Discharge Plan Departure Patient Disposition: Home Clinical Impression: Acute urinary retention, Status post lumbar surgery, Headache Activity Restrictions/Additional Instructions: Follow up with Urology. You did have your urethra dilated today. You do need to follow up with Dr. Gillespie, contact is included below. Leave your catheter in until you see urology. I also spoke with your spinal surgeon. He asked that you continue to lay flat for 24 hours you can get up to eat or perform daily activities but try to keep flat as much as possible. He is going to have the office reach out to for follow up to evaluate for potential dural leak. Has not in a You can take Fioricet 1 tablet every 6 hours as needed. Prescription sent to [facility] in [place]. Please return if you develop fevers, rapidly worsening symptoms, any new numbness tingling or weakness, any loss of bowel or bladder control, persistent vomiting, lightheadedness or other new or concerning changes. Prescriptions: New bwxjceiajv-iyckjvmqfscpd-wkwn [Fioricet] 50-300-40 mg capsule 1 cap PO Q6H PRN (Reason: pain) Qty: 10 0RF No Action sennosides [Natural Senna Laxative] 8.6 mg tablet 17.2 mg PO BID methocarbamol 750 mg tablet 750 mg PO QID Referrals: Dean Gillespie DO [Physician, Urology] Brendan Calhoun DO [Primary Care Provider, Family Practice] Stand Alone Forms: Patient Portal/API
--- NOTE | 2025-08-15 06:39 | PC.NURSE ---
Made multiple attempts to place kidd catheter with 16 belgian, 16 belgian coude, and 14 belgian silicone without success.
--- NOTE | 2025-08-15 06:49 | PC.NURSE ---
Attempted to place kidd with a 14f silicone catheter. unable to pass catheter through the base of the penis. Provider aware.
[2025-08-15 06:51] LABS: Add Manual Diff / Slide Review NO; Hematocrit 40.1 % (41-53); Hemoglobin 14.3 g/dL (13.5-17.5); Lymphocytes Absolute Auto 1000 /uL (1100-4500); Mean Corpuscular HGB Conc 35.6 % (30-36); Mean Corpuscular Hemoglobin 31.3 PG (26-34); Mean Corpuscular Volume 87.9 fL (80-100); Platelet Count 193 X10^3/uL (150-400)
[2025-08-15 07:04] LABS: Alanine Aminotransferase 30 IU/L (<50); Albumin 3.8 g/dL (3.5-5.0); Albumin Globulin Ratio 1.3 (1.0-2.8); Alkaline Phosphatase 85 U/L (38-126); Blood Urea Nitrogen 12 mg/dL (9-20); Calcium 8.6 mg/dL (8.4-10.2); Carbon Dioxide 23 mmol/L (22-32); Chloride 102 mmol/L (98-107); Estimated Glomerular Filt Rate > 60 mL/min (>60); Globulin 2.9 g/dL (1.7-4.1); Glucose 109 mg/dL (70-99); HEMOLYSIS < 15 (0-50); Potassium 3.7 mmol/L (3.4-5.1); Sodium 134 mmol/L (137-145); Total Protein 6.7 g/dL (6.3-8.2)
--- NOTE | 2025-08-15 07:11 | DI.MRI.S_ITS ---
PROCEDURE: MR LUMBAR SPINE WO/W CON INDICATIONS: recent back surgery, urinary retention.. TECHNIQUE: Noncontrast sagittal T1 spin echo and T2 fast spin echo, sagittal STIR, axial T1 and T2 fast spin echo through the lumbar spine. In cases with scoliosis, additional coronal T2 fast spin echo may be performed. After the administration of contrast, sagittal and axial T1 spin echo with fat saturation through the lumbar spine. COMPARISON: [facility], MR, MR LUMBAR SPINE WO CON, 07/13/2025, 15:44. [facility], CT, CT LUMBAR SPINE WO CON, 07/12/2025, 7:36. FINDINGS: Image quality: Excellent. Alignment and curvature: There is normal bony alignment. Interval posterior laminectomy of L2. Expected postoperative fluid collection posteriorly. Marrow: Marrow is of normal overall signal. No acute vertebral body compression fractures. No suspicious marrow enhancement. Spinal cord: Conus medullaris terminates at the T12-L1 level. Visualized spinal cord demonstrates normal signal, without suspicious enhancement. Paraspinous soft tissues: No paravertebral masses or abnormal enhancement. T12-L1: Normal appearance. L1-L2: Normal appearance. L2-L3: Interval posterior L2 laminectomy. Interval removal of free disc fragment behind L2 and either the same disc fragment or a different disc fragment in the left L2-L3 foramen. There is postoperative enhancement of the left L2 nerve root. No residual or recurrent disc protrusion/extrusion. L3-L4: Short pedicles. Disc bulge. Facet hypertrophy. Sesb-hr-necmaukt canal stenosis. Mild bilateral foraminal stenosis. L4-L5: Disc bulge plus annulus tear. Short pedicles. Facet and ligament hypertrophy. Mild canal stenosis. Ynux-av-xedyydhx bilateral foraminal stenosis. L5-S1: Short pedicles. No canal stenosis or foraminal stenosis. IMPRESSION: 1. Interval posterior laminectomy at L2 with removal of a free disc fragment which had been behind the L2 lateral recess as well as disc fragment in the left foramen. No recurrent or residual disc protrusion/extrusion is noted. 2. Postoperative enhancement of the left L2 nerve root is consistent with left L2 radiculitis. 3. Other stable findings as described above. Dictated by: Bao Cummins M.D. on 08/15/2025 at 10:44 Approved by: Bao Cummins M.D. on 08/15/2025 at 10:54
--- NOTE | 2025-08-15 08:13 | P.CONS_ITS ---
History of Present Illness Consult details Date Patient Seen: 08/15/25 Time Patient Seen: 07:45 Chief complaint: Urinary Symptoms, 3wks Back post op Reason for consult: Inability to place kidd catheter Narrative: 65 y/o M w/ BPH and LUTS who was failing medical management and underwent an Aquablation procedure with Dr. Bellamy in May that was complicated by a cystoscopy with clot evacuation the following morning. His catheter was removed a few days later and he admits to no issues with urination until the morning of his presentation to ER on 15 Aug 2025. He was unable to urinate at all and his bladder kept filling up and becoming more and more painful. His evaluation was notable for a PVR of more than 700 cc and several attempts by the nursing staff to place a kidd catheter were unsuccessful. Therefore, Urology was consulted for futther management. Of note, he is now a few weeks out from an L2-3 laminectomy discectomy. Meds Home Medications and Allergies Home Medications ?Medication ?Instructions ?Recorded ?Confirmed ?Type methocarbamol 750 mg tablet 750 mg PO QID 07/21/2501/10 History sennosides 8.6 mg tablet (Natural 17.2 mg PO BID 07/2107/21/25 History Senna Laxative) Allergies Allergy/AdvReac Type Severity Reaction Status Date / Time No Known Drug Allergies Allergy Verified 08/15/25 06:07 Review of Systems Review of Systems Narrative: CONSTITUTIONAL: Denies weight loss, fevers, chills. HEENT: Denies change in vision, hearing. RESP: Denies SOB, cough. CV: Denies palpations, CP. GI: Denies abdominal pain, nausea, vomiting, diarrhea. : Admits to inability to void. MSK: Denies myalgia, joint pain. SKIN: Denies rash, pruritus. NEURO: Denies headache, syncope. PSYCH: Denies recent change in mood, anxiety, depression. Exam Vital Signs (past 8 hours): - 08/15/25 06:07 Temperature 97.8 F Pulse Rate 85 Respiratory Rate 16 Blood Pressure 176/86 H Pulse Oximetry 96 Oxygen Delivery Method Room Air Oxygen Delivery Method Room Air Narrative Exam Narrative: GEN: Alert and oriented X3. No acute distress. Well-nourished. EYES: PERRLA, EOMI. HENT: Moist mucus membranes, no scleral icterus, normal neck ROM. RESP: Unlabored breathing, equal rise and fall of chest bilaterally, no cyanosis appreciated. CV: No peripheral edema, unremarkable heart rate. ABD: Soft, non-tender, non-distended, no palpable masses. : Circumcised penis, no urethral discharge, no meatal stenosis. EXT: No edema, clubbing or cyanosis. SKIN: No rashes or lesions. NEURO: No focal neurologic deficits, CN II-XII grossly intact. PSYCH: Cooperative, appropriate mood and affect. Objective Labs 08/15/25 06:45 08/15/25 06:45 Labs: Laboratory Results - last 24 hr 08/15/25 06:45 WBC 11.4 H RBC 4.56 Hgb 14.3 Hct 40.1 L MCV 87.9 MCH 31.3 MCHC 35.6 RDW 13.9 Plt Count 193 Neut % (Auto) 77.4 H Lymph % (Auto) 8.5 L [place] % (Auto) 12.6 Eos % (Auto) 1.1 L Baso % (Auto) 0.4 Neut # (Auto) 8900 H Lymph # (Auto) 1000 L [place] # (Auto) 1400 H Eos # (Auto) 100 Baso # (Auto) 100 Sodium 134 L Potassium 3.7 Chloride 102 Carbon Dioxide 23 BUN 12 Creatinine 0.84 Estimated GFR > 60 BUN/Creatinine Ratio 14.3 Glucose 109 H Calcium 8.6 Total Bilirubin 0.7 AST 30 ALT 30 Alkaline Phosphatase 85 Total Protein 6.7 Albumin 3.8 Globulin 2.9 Albumin/Globulin Ratio 1.3 PFSH Medical History Cervical strain Overactive bladder Secondhand smoke exposure Urine stream spraying Slow urinary stream Nocturia more than twice per night Feeling of incomplete bladder emptying Medicare annual wellness visit, initial Skin lesion Colon polyps Left knee pain Elevated PSA Erectile dysfunction Family history of prostate cancer in father Lower urinary tract symptoms (LUTS) BPH w urinary obs/LUTS Hx of fracture of leg Urinary frequency Enlarged prostate Surgical History History of hernia repair (~1999) History of knee surgery (~2013) Family History Father Cancer Mother History of heart disease Grandfather Lung cancer Grandmother History of heart disease Grandmother Stroke Social History marital status: household members: spouse and family occupational status: employed Tobacco & Substance Use Smoking Status: Never smoker alcohol intake: current substance use type: does not use Diet and Exercise caffeine: No Assessment & Plan Assessment and plan (1) Urethral stricture: Qualifiers: Urethral stricture type: post-procedural Urethral stricture sex- location: male urethra-anterior Qualified Code(s): N99.114 - Postprocedural urethral stricture, male, unspecified Status: Acute Plan: 65 y/o M w/ bothersome BPH and LUTS who failed medical management and underwent an Aquablation procedure with Dr. Bellamy in May that was complicated by a cystoscopy and clot evacuation the next morning developed acute urinary retention on the morning of 15 Aug 2025. Multiple attempts were made by nursing staff to place a kidd catheter, all unsuccessful. Cystoscopy was performed bedside and notable for a 12Fr 1cm urethral stricture in his mid penile urethra. This was serially dilated to 20Fr and an 18Fr [employer] tip catheter was easily advanced into his bladder with drainage of roughly 1L of clear yellow urine. - Safe for discharge from Urology perspective - Please give 500mg Levaquin given manipulation - Will return to Urology clinic on 25 Aug 2025 for a cystoscopy to better evaluate his urethral stricture and prostatic urethra (2) Acute urinary retention: Status: Acute Plan: Please see plan above. Time-Based Coding :: [TOTAL MINUTES] spent with patient and on the chart (including review of chart, obtaining history, exam, reviewing outside data, placing orders, documenting exam and treatment plan, and counseling patient) on [DATE]. PROFEE Charge Codes Inpatient or Observation consultation: [id number]
--- NOTE | 2025-08-15 08:20 | P.PCN_ITS ---
Procedures Date/Time Date of procedure: 08/15/25 Time of procedure: 07:45 General Procedure description: Cystoscopy: CPT Code 93545 Indication: 65 y/o M w/ bothersome BPH and LUTS who failed medical management and underwent an Aquablation procedure in May with Dr. Bellamy that was complicated by a cystoscopy and clot evacuation the following morning and now developed acute urinary retention on the morning of 15 Aug 2025 with nursing team in the ER unable to place a kidd catheter. Following proper positioning and standard sterile prep technique, the 16Fr flexible cystoscope was inserted into his urethra and easily advanced into his bladder. He was noted to have a 12Fr 1cm urethral stricture in his mid penile urethra. A 0.035 sensor tip ureteral guidewire was easily advanced through the cystoscope and into his bladder. His urethra was then serially dilated using S- curve dilators from 10Fr to 20Fr and an 18Fr [place] tip catheter was easily advanced over the guidewire and into his bladder with immediate drainage of 1L of clear yellow urine. 10cc of sterile water was utilized for balloon insufflation. He tolerated the procedure well without any complications. Complications: none PROFEE [employer] Document charge(s): Yes
--- NOTE | 2025-08-15 09:42 | DI.CT.S_ITS ---
PROCEDURE: CT HEAD/BRAIN WO CON INDICATIONS: bennett x 10 days, s/p Lumbar sx 07/19 TECHNIQUE: Noncontrast 4.5 mm thick angled axial sections acquired from the foramen magnum to the vertex, with coronal and sagittal reformats. For radiation dose reduction, the following was used: automated exposure control, adjustment of mA and/or kV according to patient size. COMPARISON: None. FINDINGS: Image quality: Diagnostic. CSF spaces: Basal cisterns are patent. No extra-axial fluid collections. The ventricles are symmetric in size and shape. Brain: No intracranial bleeds or mass effect. There is cerebral volume loss, with resultant ventricular and sulcal prominence. There are periventricular and deep white matter chronic small vessel ischemic changes. There is intracranial internal carotid artery atherosclerosis. Skull and face: Calvarium and visualized facial bones appear intact, without suspicious lesions. Sinuses: Visualized sinuses and mastoids are clear. IMPRESSION: No acute intracranial pathology. Dictated by: Duglas Moreno M.D. on 08/15/2025 at 9:57 Approved by: Duglas Moreno M.D. on 08/15/2025 at 9:58
[2025-08-15] MEDS: KETOROLAC 30 MG/ML VIAL 15 MG IV (10:38)
[2025-08-15] MEDS: BUTALB/APAP/CAFFEINE 50/325/40 TABLET 1 EACH PO (11:55)
== END 2025-08-15 13:21 | disposition home or self-care (01) ==
PROVIDERS: Emergency Medicine; Emergency Provider Emergency Medicine; Family Provider Family Medicine; PCP Family Medicine
DX: R33.8 Other retention of urine (principal); R51.9 Headache, unspecified; Z98.890 Other specified postprocedural states
CPT/HCPCS: 36415; 51798; 70450; 72158; 80053; 81003; 85025; 96374; 96375; 99284; A9579; J1171; J1885

== ENCOUNTER 2025-08-26 18:46 | Emergency (ER) | payer MEDICARE, OTHER, SELFPAY ==
[2025-08-26] VITALS (8 sets, daily range): BP systolic 125–139; BP diastolic 74–85; PULSE 74–93; RESP 16; TEMP 36.4; O2SAT 96–99; BMI 23.3
--- NOTE | 2025-08-26 19:25 | ED_ITS ---
HPI - Male Genitourinary
--- NOTE | 2025-08-26 19:25 | ED.MALEGU ---
HPI - Male Genitourinary General Chief complaint: Urogenital-Male Stated complaint: Urinary Symptoms Time Seen by Provider: 08/26/25 18:53 Source: patient Mode of arrival: Ambulatory History of Present Illness HPI Narrative: 65-year-old male with a history of BPH who was seen here in the ED on August 15, 2025 for acute urinary retention. Dr. august urology saw the patient here in the ED and after multiple failed attempts at placing a catheter, was able to dilate the patient's urethra and placed a Mahoney catheter. He just had the Mahoney catheter removed yesterday and was able to urinate although was dribbling at times. Today he has had less ability to urinate and some burning with urination. He denies any abdominal pain, fever, any other symptoms. Related Data Home Medications ?Medication ?Instructions ?Recorded ?Confirmed methocarbamol 750 mg tablet 750 mg PO QID 07/21/25 08/25/25 sennosides 8.6 mg tablet (Natural 17.2 mg PO BID 07/21/25 08/25/25 Senna Laxative) acetaminophen 325 mg capsule 650 mg PO Q8H PRN 08/25/25 08/25/25 Previous Rx's ?Medication ?Instructions ?Recorded [id number] 1 cap PO Q6H PRN pain #10 caps 08/15/25 50 mg-300 mg-40 mg capsule (Fioricet) cephalexin 500 mg capsule 500 mg PO BID 7 days #14 caps 08/26/25 Allergies Allergy/AdvReac Type Severity Reaction Status Date / Time No Known Drug Allergies Allergy Verified 08/25/25 11:45 Review of Systems Review of Systems ROS Unobtainable: All systems reviewed & are unremarkable except as noted in HPI and below Patient History Medical History Cervical strain Overactive bladder Secondhand smoke exposure Urine stream spraying Slow urinary stream Nocturia more than twice per night Feeling of incomplete bladder emptying Medicare annual wellness visit, initial Skin lesion Colon polyps Left knee pain Elevated PSA Erectile dysfunction Family history of prostate cancer in father Lower urinary tract symptoms (LUTS) BPH w urinary obs/LUTS Hx of fracture of leg Urinary frequency Enlarged prostate Surgical History History of hernia repair (~1999) History of knee surgery (~2013) Family History Father Cancer Mother History of heart disease Grandfather Lung cancer Grandmother History of heart disease Grandmother Stroke Social History marital status: household members: spouse and family occupational status: employed alcohol intake: current substance use type: does not use caffeine: No alcohol intake frequency: holidays/special occasions only Exam Narrative Exam Narrative: General: Patient appears to be in no acute distress, acting appropriately Head: normocephalic, atraumatic, HEENT: Pupils equal round reactive, eyes tracking well, neck supple, no JVD Heart: regular rate and rhythm, no murmurs, rubs, or gallops heard Lungs: clear to auscultation, no adventitious sounds Abdomen: soft , nontender, nondistended, positive bowel sounds Neurological: no focal neurological signs, moving all extremities well, alert and oriented x3, Psych: good judgment ,good insight, mood is normal. Initial Vital Signs Initial Vital Signs: Vital Signs Temperature 97.6 F 08/26/25 18:51 Pulse Rate 93 H 08/26/25 18:51 Respiratory Rate 16 08/26/25 18:51 Blood Pressure 139/80 08/26/25 18:51 Pulse Oximetry 98 08/26/25 18:51 Oxygen Delivery Method Room Air 08/26/25 18:51 Course Orders Ordered: ED Orders 08/26/25 20:30 Urinalysis and Microscopic Stat Urine Culture Stat Discontinued Medications Cefazolin Sodium (Cephalexin 250 Mg Cap Prepack) 1 bottle MISC DIRECTED ONE Stop: 08/26/25 21:29 Last Admin: 08/26/25 21:38 Dose: 20 tab Documented By: ADELE Lidocaine HCl (Lidocaine 2% (Glydo) 6 Ml Gel) 6 ml TOP NOW ONE Stop: 08/26/25 20:20 Last Admin: 08/26/25 20:31 Dose: 6 ml Documented By: ADELE Consultations Consultation #1: consultation with Dr. august urology made who gave ok to place 18 [place] coude catheter and will f/up in clinic for potential turp procedure Vital Signs Vital signs: Vital Signs - 8 hr 08/26/25 18:51 08/26/25 19:13 08/26/25 19:14 Temperature 97.6 F Pulse Rate 93 H 77 76 Respiratory Rate 16 Blood Pressure 139/80 Pulse Oximetry 98 98 99 Oxygen Delivery Method Room Air 08/26/25 19:14 08/26/25 19:30 08/26/25 19:30 Temperature Pulse Rate 78 Respiratory Rate Blood Pressure 130/79 125/74 Pulse Oximetry 96 Oxygen Delivery Method 08/26/25 20:00 08/26/25 20:00 08/26/25 20:30 Temperature Pulse Rate 76 74 Respiratory Rate Blood Pressure 138/85 Pulse Oximetry 98 98 Oxygen Delivery Method 08/26/25 20:30 08/26/25 21:00 08/26/25 21:00 Temperature Pulse Rate 76 Respiratory Rate Blood Pressure 135/78 133/76 Pulse Oximetry 96 Oxygen Delivery Method 08/26/25 21:30 08/26/25 21:30 Temperature Pulse Rate 74 Respiratory Rate Blood Pressure 138/79 Pulse Oximetry 98 Oxygen Delivery Method MDM - Male Genitourinary Lab Data Labs: Lab Results 08/26/25 Range/Units 20:30 Urine Color Yellow Urine Appearance Clear Urine pH 6.0 (4.5-8.0) Ur Specific [place] 1.020 (1.000-1.035) Urine Protein Negative (Negative) Urine Glucose (UA) Negative (Negative) g/dL Urine Ketones Negative (NEGATIVE) Urine Occult Blood Trace-intact (Negative) Urine Nitrate Positive H (Negative) Urine Bilirubin Negative (NEGATIVE) Urine Urobilinogen 0.2 (0.2) E.U./dL Ur Leukocyte Esterase Trace H (NEGATIVE) Urine RBC 0-1/hpf (0-5/HPF) Urine WBC 5-10/hpf H (0-5/HPF) Ur Squamous Epith Cells 0-1 /hpf (0-5/HPF) Urine Bacteria Few (2-10) H (None) Urine Mucus 2+ H (Negative) Ur Culture Indicated? Specimen cultured Vol Urine Centrifuged 10ml (spun) MDM Narrative Medical decision making narrative: 65-year-old male who comes in with acute urinary retention after having his Mahoney catheter taken out yesterday. Patient had another Mahoney catheter placed today without any issues and will follow up with Urology as planned for further management. He was also found to potentially have a UTI and so was given a prepack of Keflex here in the ED and will finish out a one-week course. Discharge Plan Departure Patient Disposition: Home Clinical Impression: Acute urinary retention, BPH w urinary obs/LUTS, Acute cystitis without hematuria Instructions: DI for Urinary Retention in Men Activity Restrictions/Additional Instructions: Take antibiotics as prescribed for possible UTI. Follow up with Urology as planned. Come back sooner if having more urinary tension or other symptoms. Prescriptions: New cephalexin 500 mg capsule 500 mg PO BID 7 Days Qty: 14 0RF No Action sennosides [Natural Senna Laxative] 8.6 mg tablet 17.2 mg PO BID methocarbamol 750 mg tablet 750 mg PO QID [id number] [Fioricet] 50-300-40 mg capsule 1 cap PO Q6H PRN (Reason: pain) Qty: 10 0RF acetaminophen 325 mg capsule 650 mg PO Q8H PRN Referrals: Brendan Calhoun DO [Primary Care Provider, Family Practice] Stand Alone Forms: Patient Portal/API
[2025-08-26] MEDS: LIDOCAINE 2% (GLYDO) 6 ML GEL TOP (20:31)
[2025-08-26 20:41] LABS: Appearance Urine UA CLEAR; Bilirubin Urine UA NEGATIVE (NEGATIVE); Color Urine UA YELLOW; Glucose Urine UA NEGATIVE (Negative); Ketones Urine UA NEGATIVE (NEGATIVE); Leukocyte Esterase Urine UA TRACE (NEGATIVE); Nitrite Urine UA POSITIVE (Negative); Occult Blood Urine UA TRACE-INTACT (Negative); Protein Urine UA NEGATIVE (Negative); Specific Gravity Urine UA 1.020 (1.000-1.035); Urobilinogen Urine UA 0.2 E.U./dL (0.2); pH Urine UA 6.0 (4.5-8.0)
[2025-08-26 20:47] LABS: Culture Indicated Urine Specimen Cultured
== END 2025-08-26 21:57 | disposition home or self-care (01) ==
PROVIDERS: Emergency Provider Family Medicine; Family Provider Family Medicine; PCP Family Medicine
DX: N40.1 Benign prostatic hyperplasia with lower urinary tract symptoms (principal); R33.8 Other retention of urine; N30.00 Acute cystitis without hematuria
CPT/HCPCS: 51798; 81001; 87086; 99283

== ENCOUNTER → 2025-09-04 13:23 | Outpatient (CLI) | payer MEDICARE, OTHER, SELFPAY | PROVIDERS: Family Provider Family Medicine; PCP Family Medicine; Visit Provider Urology | DX: R33.8 Other retention of urine (principal); R39.9 Unspecified symptoms and signs involving the genitourinary system | CPT/HCPCS: 87077; 87086 ==

== ENCOUNTER 2025-09-19 10:38 | Day surgery (SDC) | payer MEDICARE, OTHER, SELFPAY ==
[2025-09-01 12:10] VITALS: BMI 23.1
[2025-09-19] VITALS (9 sets, daily range): BP systolic 107–127; BP diastolic 66–82; PULSE 61–79; RESP 12–18; TEMP 36.1–36.7; O2SAT 96–100
[2025-09-19] MEDS: ACETAMINOPHEN 325 MG TABLET 975 MG PO (11:18)
[2025-09-19] MEDS: LACTATED RINGERS 1,000 ML 21 ML IV (11:20)
--- NOTE | 2025-09-19 11:59 | PM.PREOP ---
Pre-operative Note COVID-19 COVID-19 status: Not tested Interval Note History & Physical reviewed/Exam performed by Physician: Yes Changes to H&P: No
[2025-09-19] MEDS: levoFLOXacin 500 MG/100 ML PIGGYBACK 100 MG IV (12:34)
--- NOTE | 2025-09-19 12:53 | SUR.OPER ---
Lithotomy on padded OR bed, head on pillow, arms secured on padded arm boards at <90 degrees abduction. Legs secured in padded yellow fins stirrups.
--- NOTE | 2025-09-19 13:36 | SUR.OPER ---
Prior kidd D/C'd before prep
--- NOTE | 2025-09-19 13:51 | P.OP_ITS ---
Operative Date/Time/Diagnoses Date of procedure: 09/19/25 Time of procedure: 12:45 Pre-op diagnosis: Benign prostatic hyperplasia with lower urinary tract symptoms Post-op diagnosis: same Procedure & Clinicians Procedure: Cystoscopy Transurethral resection of prostate Same procedure(s) as scheduled: Yes Indications: 65 y/o M w/ bothersome BPH and LUTS who failed medical management and underwent an Aquablation procedure with Dr. Bellamy in May that was complicated by a cystoscopy and clot evacuation the next morning developed acute urinary retention on the morning of 15 Aug 2025. Multiple attempts were made by nursing staff to place a kidd catheter, all unsuccessful. Cystoscopy was performed bedside and notable for a 12Fr 1cm urethral stricture in his mid penile urethra. This was serially dilated to 20Fr and an 18Fr [place] tip catheter was easily advanced into his bladder with drainage of roughly 1L of clear yellow urine. His cystoscopy in Aug was notable for virtually no Aquablation defect, otherwise unremarkable. He was able to urinate afterwards though, however, developed AUR on 26 Aug 2025 and had his kidd catheter replaced. Discussed that he otherwise would be a candidate for a TURP Discussed risks of the procedure to include but not limited to pain, bleeding, infection, injury to urethra/bladder/either ureteral orifice, clot retention, irritative voiding symptoms for several months following the procedure, urinary incontinence, erectile dysfunction, retrograde ejaculation, need for open emergent repair of any bladder or ureteral injuries, urethral stricture or bladder neck contracture development, need for repeat procedures. He would prefer to move forward with surgical management at this time. Surgeon: Dean Gillespie Assisted?: No Anesthesia Type: General Operative Notes Findings: Coaptating lateral prostatic lobes, virtually no Aquablation defect within prostatic urethra Closure Type: not applicable Specimen(s): other (prostate chips) Applied: catheter Estimated Blood Loss (mL): 20 Procedure in detail: Patient was identified in the preoperative holding area and consent confirmed. He was then brought to the operating room where general anesthesia was induced. He was then placed in the low lithotomy position. He was then prepped and draped in the usual sterile fashion. A surgical timeout was conducted and all were in agreement. Access to the bladder was obtained via a 21Fr cystoscope. Complete cystoscopy was then performed using a 30 and 70 degree lens. Bilateral ureteral orifice were easily visualized and noted to be orthotopic in nature. He had grade 2 trabeculations throughout his bladder, no concerning masses or lesions were appreciated. He was noted to have coaptating lateral prostatic lobes without an intravesical median lobe (virtually no Aquablation defect within prostatic urethra). The cystoscope was then removed and his urethral meatus was serially dilated from 24Fr to 30Fr using [place] sounds. The 26Fr resectoscope with visual obturator was then advanced through his urethra and into his bladder. The working element with Gyrus loop was then assembled and passed through the resectoscope and into the bladder. A channel was created from the 5 o'clock position at the level of the bladder neck to a level just immediately proximal to the verumontanum with a depth of the prostatic capsule. This was repeated in similar fashion at the 7 o'clock position. The median lobe, left lateral lobe and right lateral lobe were then completely resected to the level of the prostatic capsule. All prostate specimens were then manually evacuated from the bladder using the resectoscope. Hemostasis was evaluated and noted to be excellent at case end. A 24Fr 3-way hematuria catheter was then inserted into his bladder, 45cc of sterile water was utilized for balloon insufflation. Continuous bladder irrigation was then initiated and it was noted to be clear. Anesthesia was reversed, he was extubated in the OR and transferred to the PACU in stable condition for recovery. Complications: none Post-operative Condition: stable Disposition: PACU Plan for aftercare: Will continue to run CBI for a few hours to evaluate the efflux from his catheter.? Should it remain relatively clear and with minimal blood clots, will discharge home with catheter in place and have him return to Urology clinic in 2 days for a voiding trial.? Should his efflux remain red or have significant clot burden, will admit overnight for observation and continued CBI.
[2025-09-19] MEDS: PHENAZOPYRIDINE 100 MG TABLET 200 MG PO (14:47)
--- NOTE | 2025-09-19 15:08 | SUR.PREOP ---
1503 - traction removed, CBI decreased flow - Urine is Grade I
== END 2025-09-19 17:06 | disposition home or self-care (01) ==
PROVIDERS: Family Provider Family Medicine; PCP Family Medicine; Referring Provider Urology; Visit Provider Urology
PROC: 0VT08ZZ Resection of Prostate, Via Natural or Artificial Opening Endoscopic (ICD-10-PCS; CPT 52601; principal; 2025-09-19 12:15)
DX: N40.1 Benign prostatic hyperplasia with lower urinary tract symptoms (principal); R33.9 Retention of urine, unspecified; N13.9 Obstructive and reflux uropathy, unspecified
CPT/HCPCS: 52601; J1100; J1956; J2405; J2704; J3010; J7120

== ENCOUNTER → 2025-09-21 15:18 | Outpatient (CLI) | payer MEDICARE, OTHER, SELFPAY | PROVIDERS: Family Provider Family Medicine; PCP Family Medicine; Visit Provider Urology | DX: R39.9 Unspecified symptoms and signs involving the genitourinary system (principal) | CPT/HCPCS: 87086 ==

== ENCOUNTER → 2025-10-17 15:32 | Outpatient (CLI) | payer MEDICARE, OTHER, SELFPAY ==
--- NOTE | 2025-10-17 15:33 | DI.MRI.S_ITS ---
PROCEDURE: MR PELVIC PROSTATE PROTOCOL INDICATIONS: 65 y/o M w/ prostate cancer, please eval TECHNIQUE: Coronal HASTE, axial T1 FSE with fat saturation, 3-plane nonbreath-hold T2 FSE. After the administration of contrast, dynamic axial, delayed axial and coronal VIBE or 2-D FLASH with fat saturation through the pelvis. Diffusion weighted imaging and ADC was performed. COMPARISON: None. FINDINGS: Image quality: Diffusion weighted and dynamic contrast enhanced images are diagnostic. Prostate: Gland size is 4.6 x 4.9 x 4.0 cm; ellipsoid gland volume is 47 mL. Irregular defect in the right anterior and lateral transition zone at the base to mid gland level is likely a prior TURP.. Probable BPH nodule in the right posterolateral transition zone at the mid gland. Lesion 1: Location: Left posterolateral, posterior, and right posterior peripheral zone, mid gland to apex on axial series 4 images 14 through 16 and coronal series 5, image 16. This slightly crosses the midline, best seen on diffusion imaging. Size: 2.1 cm. Transverse diameter. T2W signal: [id number]-[id number] hypointense DWI signal: Mildly hyperintense ADC signal: Moderately hypointense Enhancement: Yes Extracapsular extension: Suspected due to indistinct posterolateral margin seen on series 4 images 14 and 15. PI-RADS score: Five Lesion 2: Location: Right central zone region, on axial series four, image nine and 10, and coronal series five, image 15. Size: 1.4 cm. T2W signal: Moderately hypointense DWI signal: Moderately hyperintense ADC signal: Moderately hypointense Enhancement: No Extracapsular extension: Yes PI-RADS score: Five Genitourinary system: Mildly thickened urinary bladder, likely due to decompression and also heavy trabeculation. Distal ureters appear normal. Scrotal contents within normal limits. Bowel and peritoneum: No pathologic free pelvic fluid. Inferior colon and small bowel loops are normal in caliber. Nodes and vessels: No pelvic or inguinal adenopathy by size criteria. Iliac vessels are normal in caliber. Borderline right external iliac 6 mm lymph node, 21/105. Soft tissues: No inguinal hernias. Bones: Right hip pin and femoral intramedullary jose rafael. No enhancing bone lesion. IMPRESSION: PI-RADS five lesions in the posterior peripheral zone and right central zone regions. No pelvic lymphadenopathy by size criteria. No aggressive osseous abnormality. Irregular TURP defect in the right anterior prostate. Dictated by: Sana Nichole M.D. on 10/18/2025 at 10:03 Approved by: Sana Nichole M.D. on 10/18/2025 at 10:35
== END ==
LOC: MRI 15:33
PROVIDERS: PCP Family Medicine; Referring Provider Urology; Visit Provider Urology
DX: C61 Malignant neoplasm of prostate (principal)
CPT/HCPCS: 72197; A9579